=== PATIENT | male | born 1960 | race Two or more races ===

== ENCOUNTER → 2017-04-07 | Outpatient (CLI) | payer OTHER, MEDICAID | END | disposition home or self-care (01) | LOC: Rad HDHVI 09:50 | PROVIDERS: ATTEND Internal Medicine Cardiovascular Disease | DX: I73.9 Peripheral vascular disease, unspecified (principal) | CPT/HCPCS: 93926 ==

== ENCOUNTER → 2017-04-20 | Outpatient (CLI) | payer OTHER, MEDICAID ==
[~2017-04-20] VITALS: Ht 167.6 cm; Wt 83.0 kg
[~2017-04-20] MED LIST: ADENOSINE 70 MG in GIVE UN-DILUTED 0 ML IV ONE; ADENOSINE 90 MG/30 ML INJ IV ONE
== END | disposition home or self-care (01) ==
LOC: Rad HDHVI 08:25
PROVIDERS: ATTEND Internal Medicine Cardiovascular Disease
DX: I10 Essential (primary) hypertension (principal); E78.00 Pure hypercholesterolemia, unspecified; R06.02 Shortness of breath; Z95.1 Presence of aortocoronary bypass graft
CPT/HCPCS: 78452; 93005; 96374; 96375; A9500; J0153

== ENCOUNTER → 2017-05-19 | Outpatient (CLI) | payer OTHER, MEDICAID | END | disposition home or self-care (01) | LOC: Rad HDHVI 08:20 | PROVIDERS: ATTEND Internal Medicine Cardiovascular Disease | DX: Z13.6 Encounter for screening for cardiovascular disorders (principal) | CPT/HCPCS: 76770 ==

== ENCOUNTER → 2018-11-11 | Outpatient (CLI) | payer OTHER, MEDICAID | END | disposition home or self-care (01) | LOC: Rad HDHVI 12:52 | PROVIDERS: ATTEND Internal Medicine | DX: I25.10 Atherosclerotic heart disease of native coronary artery without angina pectoris (principal); E78.5 Hyperlipidemia, unspecified; I11.9 Hypertensive heart disease without heart failure | CPT/HCPCS: 93306 ==

== ENCOUNTER → 2019-09-13 | Outpatient (CLI) | payer OTHER, MEDICAID ==
[~2019-09-13] VITALS: Ht 167.6 cm; Wt 77.1 kg
[~2019-09-13] MED LIST changes: +ADENOSINE 65 MG in GIVE UN-DILUTED 0 ML IV ONE; -ADENOSINE 70 MG in GIVE UN-DILUTED 0 ML IV ONE
== END | disposition home or self-care (01) ==
LOC: Rad HDHVI 09:05
PROVIDERS: ATTEND Internal Medicine
DX: I10 Essential (primary) hypertension (principal); I25.118 Atherosclerotic heart disease of native coronary artery with other forms of angina pectoris; I25.2 Old myocardial infarction; E78.00 Pure hypercholesterolemia, unspecified; E11.9 Type 2 diabetes mellitus without complications; R07.89 Other chest pain; R42 Dizziness and giddiness; Z95.1 Presence of aortocoronary bypass graft
CPT/HCPCS: 78452; 93005; 96374; 96375; A9500; J0153

== ENCOUNTER 2019-10-11 10:23 | Inpatient (IN) | payer OTHER, MEDICAID ==
[~2019-10-11] VITALS: Ht 167.6 cm; Wt 77.4 kg
[2019-10-11 11:23] VITALS: BP 134/77
--- NOTE | 2019-10-11 11:44 | NUR ---
Direct Admit MCGILLMIRIAN MALAGON admitted to Telemetry unit as a direct admit per MD order. Patient oriented to MARY MOSES RN primary RN, unit, room, bed, and unit policies regarding patient care and visiting hours. Patient now on continuous telemetry monitoring. Patient placed on bedside oxygen, weighed by bedscale and encouraged to call if they need something. All questions and concerns addressed, patient verbalized understanding. Will continue care. MD notified of patients arrival and admit orders received. New orders read back to MD.
[2019-10-11] MEDS: SOD CHL 0.45% 1,000 ML IV SCH ×2 (12:15→22:20)
[2019-10-11] MEDS ORDERED: DEXTROSE (50%) 50ML SYRG IV PRN (12:15)
[2019-10-11 13:00] VITALS: BP 134/77
[2019-10-11 13:22] LABS: Basophils # (auto) 0.1 10 ^3/uL (0-0.2); Basophils % (auto) 0.8 % (0.0-2.0); Eosinophils # (auto) 0.5 10 ^3/uL (0-0.8); Eosinophils % (auto) 5.9 % (0.0-7.0); Hemoglobin 11.8 g/dL (13.5-17.5); Lymphocytes # (auto) 3.7 10 ^3/uL (0.4-5.4); Mean Corpuscular Hemoglobin 32.7 pg (28.0-32.0); Mean Corpuscular Hgb Conc. 34.7 g/dL (32.0-36.0); Mean Corpuscular Volume 94.1 fL (80.0-100.0); Monocytes # (auto) 0.6 10 ^3/uL (0-1.3); Monocytes % (auto) 7.5 % (0.0-12.0); Neutrophils # (auto) 3.5 10 ^3/uL (1.6-8.6); Neutrophils % (auto) 41.8 % (37.0-80.0); Nucleated Red Blood Cells % 0.1 %; Platelet Count (auto) 193 10^3/uL (140-450); Red Blood Cells 3.62 10^6/uL (4.5-5.90); Red Cell Distribution Width 13.2 % (11.8-14.3); White Blood Cell 8.4 10^3/uL (4.4-10.8)
[2019-10-11 13:40] LABS: Albumin 3.6 g/dL (3.4-5.0); Calcium 8.9 mg/dL (8.5-10.1); Potassium 3.6 mmol/L (3.5-5.1)
[2019-10-11 13:44] LABS: BUN/Creatinine Ratio 20.6; Bilirubin, Total 0.3 mg/dL (0.2-1.0); Total Protein 7.5 g/dL (6.4-8.2)
[2019-10-11] MEDS ORDERED: TOPI50TA53 PO (14:17)
[2019-10-11] MEDS ORDERED: RANO1000 PO (14:17)
[2019-10-11] MEDS ORDERED: INSLANTI SC (14:35)
[2019-10-11] MEDS ORDERED: COLC1CAP PO (14:35)
[2019-10-11] MEDS ORDERED: ISO20T PO (14:35)
[2019-10-11] MEDS ORDERED: FURO40TA4 PO (14:35)
[2019-10-11] MEDS ORDERED: ALBUAER3 IN (14:35)
[2019-10-11] MEDS ORDERED: FERR1TAB17 PO (14:35)
[2019-10-11] MEDS ORDERED: CHOL20007 OR (14:35)
[2019-10-11] MEDS ORDERED: ASPI-498 OR (14:35)
[2019-10-11] MEDS ORDERED: BRIM0.159 OP (14:35)
[2019-10-11] MEDS ORDERED: FEBU40TA PO (14:35)
[2019-10-11] MEDS ORDERED: PANT1INJ3 PO (14:35)
[2019-10-11] MEDS ORDERED: HYDR50TA15 PO (14:35)
[2019-10-11] MEDS ORDERED: CAR3125T OR (14:35)
[2019-10-11] MEDS ORDERED: GABA-339 PO (14:35)
[2019-10-11] MEDS ORDERED: INSU1INJ15 SC (14:35)
[2019-10-11] MEDS ORDERED: DORZ2SOL18 EACHEYE (14:35)
[2019-10-11] MEDS ORDERED: GEMF600T PO (14:35)
[2019-10-11] MEDS ORDERED: SEMA2INJ SC (14:35)
[2019-10-11] MEDS ORDERED: LATA0.0019 OP (14:35)
[2019-10-11] MEDS ORDERED: ATOR1TAB PO (14:35)
[2019-10-11 16:34] VITALS: BP 171/87
[2019-10-11] MEDS: InsuLIN REG 1unit/0.01ml Soln (100units/ml) SC SCH ×2 (16:53→21:33)
[2019-10-11] MEDS: ACCU-CHEK COMFORT CURVE STRIP VI SCH ×2 (16:53→21:34)
[2019-10-11] MEDS ORDERED: MORPHINE SULFATE 4 MG/ML SYR/VIAL IV PRN (17:00)
[2019-10-11] MEDS ORDERED: ACETAMINOPHEN 325 MG TAB PO PRN (17:00)
[2019-10-11] MEDS: hydrALAZINE HCL 20 MG/ML VL IV PRN (17:58)
--- NOTE | 2019-10-11 18:00 | NUR ---
MRSA SWAB COLLECTED AND SENT TO LAB.
--- NOTE | 2019-10-11 18:51 | NUR ---
CLOSING SHIFT NOTE Patient currently in bed no s/s of distress noted. Patient denies any pain. Bed in low position, locked, side rails x2 up, call light within reach. Will endorse care to NOC JOVANY Osborne.
[2019-10-11 19:00] VITALS: BP 130/77
[2019-10-11 19:47] LABS: Magnesium 1.9 mg/dL (1.6-2.6)
[2019-10-11] MEDS ORDERED: PERCOT PO ×2 (21:17→21:19)
[2019-10-11] MEDS: TOPIRAMATE 25 MG TAB PO SCH (21:32)
[2019-10-11] MEDS: INSULIN LANTUS (GLARGINE) 1 /0.01ml (100units/ml) SC SCH (21:33)
[2019-10-11] MEDS: GABAPENTIN 300 MG CAP PO SCH (21:33)
[2019-10-11] MEDS: RANOLAZINE ER 500 MG TAB PO SCH (21:33)
[2019-10-11 22:00] VITALS: BP 168/82
[2019-10-11] MEDS ORDERED: METOPROLOL SUCCINATE XL 50 MG TAB PO SCH (22:00)
--- NOTE | 2019-10-11 22:00 | NUR ---
Paged hospitalist to notify of patient requesting Percocet 10-325 mg 1 tab 3x a day as prescribed at home by pain managment doctor Cullen Young from [facility]. [phone] phone number to [facility]. Awaiting call back from hospitalist.
[2019-10-11] MEDS ORDERED: OXYCODONE W/ ACETAMINOPHEN 5/325MG TABLET PO ONE (22:30)
--- NOTE | 2019-10-11 22:30 | NUR ---
received order for percocet 5-325 two tabs po one time dose now. Will carry out.
[2019-10-12] MEDS: hydrALAZINE HCL 20 MG/ML VL IV PRN (04:46)
[2019-10-12] MEDS: GABAPENTIN 300 MG CAP PO SCH (04:57)
[2019-10-12 05:00] VITALS: BP 163/76
[2019-10-12 06:04] LABS: Basophils # (auto) 0.1 10 ^3/uL (0-0.2); Basophils % (auto) 0.9 % (0.0-2.0); Eosinophils # (auto) 0.5 10 ^3/uL (0-0.8); Eosinophils % (auto) 5.1 % (0.0-7.0); Hematocrit 35.7 % (41.0-53.0); Hemoglobin 12.5 g/dL (13.5-17.5); Lymphocytes # (auto) 3.7 10 ^3/uL (0.4-5.4); Mean Corpuscular Hemoglobin 32.9 pg (28.0-32.0); Mean Corpuscular Hgb Conc. 35.1 g/dL (32.0-36.0); Mean Corpuscular Volume 93.7 fL (80.0-100.0); Monocytes # (auto) 0.7 10 ^3/uL (0-1.3); Neutrophils # (auto) 4.5 10 ^3/uL (1.6-8.6); Platelet Count (auto) 183 10^3/uL (140-450); Red Blood Cells 3.81 10^6/uL (4.5-5.90); Red Cell Distribution Width 13.4 % (11.8-14.3); White Blood Cell 9.4 10^3/uL (4.4-10.8)
[2019-10-12 06:14] LABS: INR 1.12 (0.9-1.15); Partial Thromboplastin Time 27.1 sec (23.64-32.05)
[2019-10-12 06:21] LABS: Potassium 3.5 mmol/L (3.5-5.1)
[2019-10-12 06:26] LABS: BUN/Creatinine Ratio 21.7; Calcium 8.6 mg/dL (8.5-10.1)
[2019-10-12] MEDS: InsuLIN REG 1unit/0.01ml Soln (100units/ml) SC SCH ×4 (06:32→22:03)
[2019-10-12] MEDS: ACCU-CHEK COMFORT CURVE STRIP VI SCH ×4 (06:32→21:27)
[2019-10-12 06:48] VITALS: BP 116/74
[2019-10-12] MEDS ORDERED: INSULIN LANTUS (GLARGINE) 1 /0.01ml (100units/ml) SC SCH (07:00)
[2019-10-12 07:40] LABS: Urine Bacteria NONE SEEN /hpf (None Seen); Urine Blood Negative /uL (Negative); Urine Specific Gravity 1.009 (1.001-1.035); Urine WBC 6 /hpf (0 - 3)
[2019-10-12] MEDS: SOD CHL 0.45% 1,000 ML IV SCH ×3 (08:15→17:37)
[2019-10-12 09:00] VITALS: BP 116/74
--- NOTE | 2019-10-12 09:25 | NUR ---
End of shift note Patient in bed currently having dinner brought in by family members. No s/s of distress/SOB noted or reported. Family members at bedside. Will endorse care to LEIGH Lyles. Addendum: 10/12/19 at 1953 by MARY MOSES RN RN incorrect time time of note 1924
[2019-10-12] MEDS ORDERED: IOHEXOL 350 MG/ML 100ML IJ ONE ×2 (09:29→09:31)
--- NOTE | 2019-10-12 09:50 | NUR ---
OFF UNIT PATIENT DOWN TO STUDENT SERVICES REPRESENTATIVE
[2019-10-12] MEDS: TOPIRAMATE 25 MG TAB PO SCH ×2 (10:00→22:02)
[2019-10-12] MEDS: ATORVASTATIN 20 MG TAB PO SCH (10:00)
[2019-10-12] MEDS: RANOLAZINE ER 500 MG TAB PO SCH ×2 (10:00→22:02)
[2019-10-12] MEDS: CARVEDILOL 3.125 MG TAB PO SCH (10:00)
[2019-10-12] MEDS: ASPirin 81 mg TAB PO SCH (10:00)
[2019-10-12] MEDS ORDERED: ANGIOMAX 250 MG VIAL IV ONE (10:28)
[2019-10-12] MEDS ORDERED: methylPREDNISolone SOD SUCC 125 MG/2 ML VL ONE (10:28)
[2019-10-12] MEDS ORDERED: diphenhdrAMINE HCL 50 MG/1 ML VL ONE (10:28)
[2019-10-12] MEDS ORDERED: MIDAZOLAM HCL 1MG/1ML-2 ML VIAL ONE (10:29)
[2019-10-12] MEDS ORDERED: SODIUM CHL 0.9% 50 ML ONE (10:29)
[2019-10-12] MEDS ORDERED: LIDOCAINE 2%HCL (LOCAL ANESTH.) INJ 20ML MDV ONE (10:29)
[2019-10-12] MEDS ORDERED: fentaNYL CITRATE 100 MCG/2 ML VL ONE (10:29)
[2019-10-12] MEDS ORDERED: IODIXANOL 320MG/ML 100ML BTL IV ONE ×2 (10:29→11:09)
[2019-10-12] MEDS ORDERED: hydrALAZINE HCL 20 MG/ML VL ONE (10:56)
[2019-10-12] MEDS ORDERED: CLOPIDOGREL 300 MG TAB ONE (11:10)
[2019-10-12] MEDS ORDERED: ASPirin 81 mg TAB ONE (11:28)
[2019-10-12] MEDS ORDERED: SODIUM CHLORIDE 0.9% 1,000 ML IV SCH (12:21)
--- NOTE | 2019-10-12 12:55 | NUR ---
S/P left heart cath Patient back on unit from microbiology lab technician. Patient currently in bed AOx4 laying flat. No S/S of distress noted. Right groin incision assessed and drainage from dressing marked. Education given to patient on maintaining flat position until notified otherwise, patient verbalized understanding. Will continue to monitor incision site. VS: T 97.7 B/P 137/68 HR 63 O2% 95
--- NOTE | 2019-10-12 13:05 | NUR ---
RE: s/p left heart cath Right groin incision assessed. Increase in circled bloody drainage noted, no signs of active bleeding or hematoma at the moment. Will continue to monitor.
[2019-10-12] MEDS: GABAPENTIN 400 MG CAP PO SCH ×2 (15:05→22:01)
--- NOTE | 2019-10-12 16:15 | NUR ---
paged Dr. Watson paged regarding patient requesting pain medication for chronic pancreatitis pain in right sternal border pain 03/19. New order for Percocet received, see EMAR for order details. Will carry out orders.
[2019-10-12 17:00] VITALS: BP 154/80
[2019-10-12] MEDS: OXYCODONE W/ ACETAMINOPHEN 5/325MG TABLET PO PRN (17:36)
--- NOTE | 2019-10-12 19:25 | NUR ---
End of shift note Patient in bed currently having dinner brought in by family members. No s/s of distress/SOB noted or reported. Family members at bedside. Will endorse care to NOC nurse Lyles.
--- NOTE | 2019-10-12 19:30 | NUR ---
Opening Shift Note Assumed care of patient, awake and alert. No S/S of distress/SOB or pain. Family at bedside. Instructed on POC and to call for assist PRN, will continue to monitor for changes Q1hr and PRN.
[2019-10-12 21:55] VITALS: BP 147/77
[2019-10-12] MEDS: INSULIN LANTUS (GLARGINE) 1 /0.01ml (100units/ml) SC SCH (22:02)
[2019-10-13] MEDS: SOD CHL 0.45% 1,000 ML IV SCH (04:22)
[2019-10-13] MEDS: OXYCODONE W/ ACETAMINOPHEN 5/325MG TABLET PO PRN (04:44)
[2019-10-13 05:26] VITALS: BP 152/70
[2019-10-13] MEDS: ACCU-CHEK COMFORT CURVE STRIP VI SCH ×2 (06:16→12:06)
[2019-10-13] MEDS: InsuLIN REG 1unit/0.01ml Soln (100units/ml) SC SCH ×2 (06:16→12:06)
[2019-10-13] MEDS: GABAPENTIN 400 MG CAP PO SCH (06:16)
--- NOTE | 2019-10-13 08:00 | NUR ---
OPENING SHIFT NOTE ASSUMED CARE OF PATIENT AWAKE AND ALERT. NO S/S OF DISTRESS NOTED OR COMPLAINTS OF PAIN. PATIENT UPDATED ON POC FOR THE DAY AND ALL QUESTIONS ANSWERED. BED IS IN LOWEST, LOCKED POSITION WITH SIDE RAILS UP X2 AND CALL LIGHT WITHIN REACH. WILL CONTINUE TO MONITOR Q1H AND PRN.
[2019-10-13] MEDS: CARVEDILOL 3.125 MG TAB PO SCH ×2 (08:43→10:09)
[2019-10-13 08:50] VITALS: BP 159/77
[2019-10-13] MEDS: ASPirin 81 mg TAB PO SCH (10:09)
[2019-10-13] MEDS: ATORVASTATIN 20 MG TAB PO SCH (10:09)
[2019-10-13] MEDS: TOPIRAMATE 25 MG TAB PO SCH (10:09)
[2019-10-13] MEDS: RANOLAZINE ER 500 MG TAB PO SCH (10:10)
--- NOTE | 2019-10-13 14:00 | NUR ---
Discharge instructions given as ordered. Encourage to follow up with PMD as instructed. All questions and concerns addressed. Patient verbalized understanding. Both IVs removed with catheter intact, pressure dressing applied. Telemetry unit returned to ICU. Patient taken to vehicle via wheelchair with all personal belongings, accompanied by staff and family member. No distress noted at time of departure.
== END 2019-10-13 14:00 | disposition home or self-care (01) | DRG 247 ==
LOC: TELE-CENTR 11:08
PROVIDERS: ADMIT Internal Medicine; ATTEND Internal Medicine
PROC: 027034Z Dilation of Coronary Artery, One Artery with Drug-eluting Intraluminal Device, Percutaneous Approach (ICD-10-PCS; principal; 2019-10-12)
PROC: 4A023N7 Measurement of Cardiac Sampling and Pressure, Left Heart, Percutaneous Approach (ICD-10-PCS; 2019-10-12)
PROC: B211YZZ Fluoroscopy of Multiple Coronary Arteries using Other Contrast (ICD-10-PCS; 2019-10-12)
PROC: B215YZZ Fluoroscopy of Left Heart using Other Contrast (ICD-10-PCS; 2019-10-12)
PROC: B213YZZ Fluoroscopy of Multiple Coronary Artery Bypass Grafts using Other Contrast (ICD-10-PCS; 2019-10-12)
PROC: B218YZZ Fluoroscopy of Left Internal Mammary Bypass Graft using Other Contrast (ICD-10-PCS; 2019-10-12)
DX: I25.10 Atherosclerotic heart disease of native coronary artery without angina pectoris (principal); I50.30 Unspecified diastolic (congestive) heart failure; I13.0 Hypertensive heart and chronic kidney disease with heart failure and stage 1 through stage 4 chronic kidney disease, or unspecified chronic kidney disease; K86.1 Other chronic pancreatitis; E86.0 Dehydration; N18.3 Chronic kidney disease, stage 3 (moderate); E78.5 Hyperlipidemia, unspecified; E11.22 Type 2 diabetes mellitus with diabetic chronic kidney disease; Z79.02 Long term (current) use of antithrombotics/antiplatelets; Z79.4 Long term (current) use of insulin; Z83.3 Family history of diabetes mellitus; Z95.1 Presence of aortocoronary bypass graft; Z95.5 Presence of coronary angioplasty implant and graft
CPT/HCPCS: 36415; 71045; 80048; 80053; 81001; 82962; 83735; 83880; 84443; 84484; 85025; 85610; 85730; 86850; 86900; 86901; 87081; 92937; 93459; 99152; 99153; C1874; C1887; G0378; J1815; J2250; Q9967

== ENCOUNTER → 2020-10-12 | Outpatient (CLI) | payer OTHER, MEDICAID ==
[~2020-10-12] MED LIST changes: -ADENOSINE 65 MG in GIVE UN-DILUTED 0 ML IV ONE; -ADENOSINE 90 MG/30 ML INJ IV ONE; +ALBUAER3 IN; +ASPI-498 OR; +ATOR-47 PO; +BRIM0.159 OP; +CAR3125T OR; +CHOL20007 OR; +COLC1CAP PO; +DORZ2SOL18 EACHEYE; +FEBU40TA PO; +FERR1TAB17 PO; +FURO40TA4 PO; +GABA-339 PO; +GEMF600T PO; +HYDR50TA15 PO; +INSLANTI SC; +INSU1INJ15 SC; +ISO20T PO; +LATA0.0019 OP; +PANT1INJ3 PO; +PERCOT PO; +RANO1000 PO; +SEMA2INJ SC; +TOPI50TA53 PO
== END | disposition home or self-care (01) ==
LOC: Rad HDHVI 15:04
PROVIDERS: ATTEND Internal Medicine
DX: I37.1 Nonrheumatic pulmonary valve insufficiency (principal); I25.10 Atherosclerotic heart disease of native coronary artery without angina pectoris; R07.9 Chest pain, unspecified
CPT/HCPCS: 93306

== ENCOUNTER → 2020-10-22 | Outpatient (CLI) | payer OTHER, MEDICAID ==
[~2020-10-22] VITALS: Ht 167.6 cm; Wt 72.6 kg
[~2020-10-22] MED LIST changes: +ADENOSINE 61 MG in GIVE UN-DILUTED 0 ML IV ONE; +ADENOSINE 90 MG/30 ML INJ IV ONE
== END | disposition home or self-care (01) ==
LOC: Rad HDHVI 09:40
PROVIDERS: ATTEND Internal Medicine Cardiovascular Disease
DX: I10 Essential (primary) hypertension (principal); E78.00 Pure hypercholesterolemia, unspecified; I25.2 Old myocardial infarction; E11.9 Type 2 diabetes mellitus without complications; R07.89 Other chest pain; Z95.1 Presence of aortocoronary bypass graft; Z82.49 Family history of ischemic heart disease and other diseases of the circulatory system
CPT/HCPCS: 78452; 93005; 96374; 96375; A9500; J0153

== ENCOUNTER 2021-11-01 15:40 | Inpatient (IN) | payer OTHER, MEDICAID ==
[~2021-11-01] VITALS: Ht 167.6 cm; Wt 60.1 kg
[~2021-11-01 15:40] MED LIST changes: -ADENOSINE 61 MG in GIVE UN-DILUTED 0 ML IV ONE; -ADENOSINE 90 MG/30 ML INJ IV ONE; -CAR3125T OR; -GEMF600T PO; +LEVE500T32 PO; -SEMA2INJ SC
[2021-11-01 16:16] LABS: Basophils # (auto) 0.1 10 ^3/uL (0-0.2); Basophils % (auto) 0.8 % (0.0-2.0); Eosinophils # (auto) 0.4 10 ^3/uL (0-0.8); Eosinophils % (auto) 3.6 % (0.0-7.0); Hemoglobin 10.5 g/dL (13.5-17.5); Lymphocytes # (auto) 3.2 10 ^3/uL (0.4-5.4); Lymphocytes % (auto) 32.2 % (10.0-50.0); Mean Corpuscular Hgb Conc. 35.1 g/dL (32.0-36.0); Monocytes # (auto) 0.6 10 ^3/uL (0-1.3); Monocytes % (auto) 5.7 % (0.0-12.0); Neutrophils # (auto) 5.7 10 ^3/uL (1.6-8.6); Neutrophils % (auto) 57.7 % (37.0-80.0); Nucleated Red Blood Cells % 0.2 %; Red Blood Cells 3.09 10^6/uL (4.5-5.90); Red Cell Distribution Width 13.3 % (11.8-14.3); White Blood Cell 9.8 10^3/uL (4.4-10.8)
[2021-11-01 16:40] LABS: Albumin 3.2 g/dL (3.4-5.0); Anion Gap 8 (5-15); Calcium 9.1 mg/dL (8.5-10.1); Carbon Dioxide 18 mmol/L (21-32); Chloride 110 mmol/L (98-107); Glucose 162 mg/dL (74-106); Potassium 4.4 mmol/L (3.5-5.1); Sodium 136 mmol/L (136-145)
[2021-11-01 16:41] LABS: GFR African American 33 mL/min; GFR Non-African American 27 mL/min
[2021-11-01 16:57] LABS: Alanine Aminotransferase 44 U/L (16-61); Alkaline Phosphatase 67 U/L (45-117); Aspartate Aminotransferase 68 U/L (15-37); BUN/Creatinine Ratio 20.1; Bilirubin, Total 0.3 mg/dL (0.2-1.0); Blood Urea Nitrogen 52 mg/dL (7-18); Total Protein 7.5 g/dL (6.4-8.2)
[2021-11-01 17:19] LABS: INR 1.09 (0.9-1.15); Partial Thromboplastin Time 24.7 sec (23.6-33.0)
[2021-11-01] MEDS ORDERED: ONDANSETRON HCL 4 MG/2 ML VIAL IV ONE (20:00)
[2021-11-01] MEDS ORDERED: HYDROmorphone HCL 2 MG/ML VL IV ONE (20:00)
[2021-11-01] MEDS ORDERED: DOCUSATE SOD 100 MG CAP PO PRN (20:45)
[2021-11-01] MEDS ORDERED: ACETAMINOPHEN 325 MG TAB PO PRN (20:45)
[2021-11-01] MEDS ORDERED: ONDANSETRON HCL 4 MG/2 ML VIAL IV PRN (20:45)
[2021-11-01] MEDS ORDERED: FUROSEMIDE 20 MG/2 ML VIAL IV ONE (20:45)
[2021-11-01] MEDS ORDERED: DEXTROSE (50%) 50ML SYRG IV PRN (20:45)
[2021-11-01] MEDS: MORPHINE SULFATE 4 MG/ML SYR/VIAL IV PRN (21:45)
[2021-11-01] MEDS: HEPARIN SODIUM (PORCINE) 5000 UNITS/ML 1ML VIAL SC SCH (21:45)
[2021-11-01] MEDS ORDERED: NITROGLYCERIN 0.4 MG SL TAB SL PRN (21:45)
[2021-11-01] MEDS: FAMOTIDINE (10MG/ML) 2ML VL IV SCH (21:45)
[2021-11-01] MEDS ORDERED: MORPHINE SULFATE INJECTION 2 MG/ML SYRG IV PRN (21:45)
[2021-11-01] MEDS: SODIUM CHLORIDE 0.9% 1,000 ML IV SCH (21:46)
[2021-11-01] MEDS: ATORVASTATIN 20 MG TAB PO SCH (21:54)
[2021-11-01] MEDS ORDERED: InsuLIN REG 1unit/0.01ml Soln (100units/ml) SC SCH (22:00)
[2021-11-01] MEDS: ACCU-CHEK COMFORT CURVE STRIP VI SCH (22:00)
[2021-11-01 23:45] VITALS: BP 139/67
[2021-11-02 05:00] VITALS: BP 119/80
[2021-11-02 06:03] LABS: Urine WBC None Seen /hpf (0 - 3)
[2021-11-02 06:23] LABS: Basophils # (auto) 0 10 ^3/uL (0-0.2); Basophils % (auto) 0.4 % (0.0-2.0); Eosinophils # (auto) 0.3 10 ^3/uL (0-0.8); Eosinophils % (auto) 3.7 % (0.0-7.0); Hematocrit 31.1 % (41.0-53.0); Hemoglobin 10.7 g/dL (13.5-17.5); Lymphocytes # (auto) 2.9 10 ^3/uL (0.4-5.4); Lymphocytes % (auto) 37.2 % (10.0-50.0); Mean Corpuscular Hemoglobin 33.3 pg (28.0-32.0); Mean Corpuscular Hgb Conc. 34.2 g/dL (32.0-36.0); Mean Corpuscular Volume 97.3 fL (80.0-100.0); Monocytes # (auto) 0.5 10 ^3/uL (0-1.3); Monocytes % (auto) 6.7 % (0.0-12.0); Red Cell Distribution Width 13.6 % (11.8-14.3); White Blood Cell 7.7 10^3/uL (4.4-10.8)
[2021-11-02] MEDS: InsuLIN REG 1unit/0.01ml Soln (100units/ml) SC SCH ×3 (06:33→17:14)
[2021-11-02] MEDS: ACCU-CHEK COMFORT CURVE STRIP VI SCH ×3 (06:33→17:15)
[2021-11-02 06:34] LABS: Albumin 3.3 g/dL (3.4-5.0); Calcium 8.9 mg/dL (8.5-10.1); Potassium 3.6 mmol/L (3.5-5.1)
[2021-11-02 06:40] LABS: BUN/Creatinine Ratio 21.5; Bilirubin, Total 0.2 mg/dL (0.2-1.0); Total Protein 7.6 g/dL (6.4-8.2)
[2021-11-02 06:42] LABS: Urine Bacteria NONE SEEN /hpf (None Seen); Urine Blood TRACE /uL (Negative); Urine Hyaline Cast FEW /lpf (0 - 2)
[2021-11-02 08:00] VITALS: BP 133/62
[2021-11-02] MEDS: HYDROcodone-ACET 5/325MG TAB PO PRN ×2 (08:10→21:20)
[2021-11-02] MEDS: HEPARIN SODIUM (PORCINE) 5000 UNITS/ML 1ML VIAL SC SCH ×2 (09:36→21:25)
[2021-11-02] MEDS: ASPirin 81 mg TAB PO SCH (09:37)
[2021-11-02] MEDS: FAMOTIDINE (10MG/ML) 2ML VL IV SCH (09:37)
[2021-11-02] MEDS ORDERED: FUROSEMIDE 20 MG/2 ML VIAL IV SCH (10:00)
[2021-11-02 12:00] VITALS: BP 146/68
[2021-11-02] MEDS: SODIUM CHLORIDE 0.9% 1,000 ML IV SCH (12:12)
[2021-11-02] MEDS ORDERED: DEXTROSE (50%) 50ML SYRG IV PRN (14:15)
[2021-11-02 14:57] LABS: Amphetamine Screen, Urine NEGATIVE (NEGATIVE); Barbiturate Scree,Urine NEGATIVE (NEGATIVE); Benzodiazephine Screen, Urine NEGATIVE (NEGATIVE); Cannabinoid Screen, Urine NEGATIVE (NEGATIVE); Cocaine Screen, Urine NEGATIVE (NEGATIVE); Opiate Scree,Urine NEGATIVE (NEGATIVE); Phencyclidine Screen, Urine NEGATIVE (NEGATIVE)
[2021-11-02] MEDS: MORPHINE SULFATE 4 MG/ML SYR/VIAL IV PRN (15:50)
[2021-11-02 16:00] VITALS: BP 169/67
[2021-11-02 17:33] VITALS: BP 133/83
[2021-11-02] MEDS: ATORVASTATIN 20 MG TAB PO SCH (21:23)
[2021-11-02 22:00] VITALS: BP 152/80
[2021-11-03] MEDS: InsuLIN REG 1unit/0.01ml Soln (100units/ml) SC SCH ×4 (00:47→18:04)
[2021-11-03 05:00] VITALS: BP 120/71
[2021-11-03] MEDS: ACCU-CHEK COMFORT CURVE STRIP VI SCH ×4 (06:15→17:54)
[2021-11-03] MEDS: SODIUM CHLORIDE 0.9% 1,000 ML IV SCH ×2 (06:15→22:25)
[2021-11-03 06:38] LABS: Basophils # (auto) 0 10 ^3/uL (0-0.2); Basophils % (auto) 0.5 % (0.0-2.0); Eosinophils # (auto) 0.4 10 ^3/uL (0-0.8); Eosinophils % (auto) 4.8 % (0.0-7.0); Hematocrit 29.4 % (41.0-53.0); Hemoglobin 10.4 g/dL (13.5-17.5); Lymphocytes % (auto) 33.8 % (10.0-50.0); Mean Corpuscular Hemoglobin 33.5 pg (28.0-32.0); Mean Corpuscular Hgb Conc. 35.3 g/dL (32.0-36.0); Monocytes # (auto) 0.6 10 ^3/uL (0-1.3); Neutrophils # (auto) 4.7 10 ^3/uL (1.6-8.6); Neutrophils % (auto) 53.9 % (37.0-80.0); Red Blood Cells 3.09 10^6/uL (4.5-5.90); Red Cell Distribution Width 13.4 % (11.8-14.3); White Blood Cell 8.7 10^3/uL (4.4-10.8)
[2021-11-03 06:58] LABS: Potassium 3.6 mmol/L (3.5-5.1)
[2021-11-03 07:08] LABS: Albumin 2.9 g/dL (3.4-5.0); BUN/Creatinine Ratio 24.5; Bilirubin, Total 0.3 mg/dL (0.2-1.0); Calcium 8.8 mg/dL (8.5-10.1)
[2021-11-03 08:00] VITALS: BP 163/80
[2021-11-03] MEDS: FAMOTIDINE (10MG/ML) 2ML VL IV SCH (09:30)
[2021-11-03] MEDS: HEPARIN SODIUM (PORCINE) 5000 UNITS/ML 1ML VIAL SC SCH ×2 (09:30→22:24)
[2021-11-03] MEDS: ASPirin 81 mg TAB PO SCH (09:30)
[2021-11-03] MEDS: HYDROcodone-ACET 5/325MG TAB PO PRN (09:31)
[2021-11-03 13:00] VITALS: BP 160/74
[2021-11-03] MEDS: hydrALAZINE HCL 25 MG TAB PO SCH ×2 (16:00→22:24)
[2021-11-03 17:00] VITALS: BP 136/55
[2021-11-03 17:33] VITALS: BP 160/72
[2021-11-03] MEDS: MORPHINE SULFATE 4 MG/ML SYR/VIAL IV PRN (19:44)
[2021-11-03 22:00] VITALS: BP 157/78
[2021-11-03] MEDS: ATORVASTATIN 20 MG TAB PO SCH (22:24)
[2021-11-04] MEDS: ACCU-CHEK COMFORT CURVE STRIP VI SCH ×5 (00:21→23:10)
[2021-11-04] MEDS: InsuLIN REG 1unit/0.01ml Soln (100units/ml) SC SCH ×5 (00:22→23:10)
[2021-11-04 05:00] VITALS: BP 157/80
[2021-11-04 05:44] LABS: BUN/Creatinine Ratio 28.7; Calcium 9.4 mg/dL (8.5-10.1); Potassium 3.5 mmol/L (3.5-5.1)
[2021-11-04] MEDS: hydrALAZINE HCL 25 MG TAB PO SCH ×2 (06:06→21:14)
[2021-11-04 08:33] VITALS: BP 156/83
[2021-11-04] MEDS: HEPARIN SODIUM (PORCINE) 5000 UNITS/ML 1ML VIAL SC SCH ×2 (09:04→21:10)
[2021-11-04] MEDS: ASPirin 81 mg TAB PO SCH (09:04)
[2021-11-04] MEDS: FAMOTIDINE (10MG/ML) 2ML VL IV SCH (09:04)
[2021-11-04] MEDS ORDERED: LACTULOSE 20Gm/30ML SOLN PO ONE (12:45)
[2021-11-04 13:00] VITALS: BP 142/86
[2021-11-04] MEDS ORDERED: ALBUTEROL SULF 2.5 MG/0.5ML(0.5%) NEB SOLN NEB PRN (13:30)
[2021-11-04] MEDS ORDERED: LACTULOSE 20Gm/30ML SOLN PO PRN (13:30)
[2021-11-04] MEDS ORDERED: DOCU-94 PO (13:34)
[2021-11-04] MEDS ORDERED: ATOR10TA PO (13:39)
[2021-11-04 16:57] VITALS: BP 152/82
[2021-11-04] MEDS: DOCUSATE SOD 100 MG CAP PO SCH (21:12)
[2021-11-04] MEDS: TOPIRAMATE 25 MG TAB PO SCH (21:13)
[2021-11-04] MEDS ORDERED: ATORVASTATIN 20 MG TAB PO SCH (22:00)
[2021-11-04] MEDS ORDERED: hydrALAZINE HCL 20 MG/ML VL IV ONE (22:30)
[2021-11-04 22:48] VITALS: BP 178/78
[2021-11-05 00:48] VITALS: BP 131/55
[2021-11-05 05:22] VITALS: BP 120/47
[2021-11-05] MEDS: InsuLIN REG 1unit/0.01ml Soln (100units/ml) SC SCH ×3 (06:00→18:00)
[2021-11-05] MEDS: ACCU-CHEK COMFORT CURVE STRIP VI SCH ×3 (06:00→18:15)
[2021-11-05 08:41] VITALS: BP 134/62
[2021-11-05] MEDS: ASPirin 81 mg TAB PO SCH (09:46)
[2021-11-05] MEDS: hydrALAZINE HCL 25 MG TAB PO SCH (09:47)
[2021-11-05] MEDS: TOPIRAMATE 25 MG TAB PO SCH (09:49)
[2021-11-05] MEDS: DOCUSATE SOD 100 MG CAP PO SCH (09:51)
[2021-11-05] MEDS: HEPARIN SODIUM (PORCINE) 5000 UNITS/ML 1ML VIAL SC SCH (09:52)
[2021-11-05] MEDS ORDERED: PANTOPRAZOLE 40 MG TAB PO SCH (10:00)
[2021-11-05] MEDS ORDERED: ISOSORBIDE MONONITRATE ER 60 MG TAB PO SCH (10:00)
[2021-11-05 12:43] VITALS: BP 117/72
[2021-11-05 14:09] VITALS: BP 134/62
[2021-11-05] MEDS: HYDROcodone-ACET 5/325MG TAB PO PRN (15:21)
[2021-11-05 16:47] VITALS: BP 127/62
== END 2021-11-05 19:20 | DRG 562 ==
LOC: EDBD 15:40 → EDUNIT# 15:40 → ER 15:44 → TELE-WESTW 21:41
PROVIDERS: ADMIT Nurse Practitioner Family; ATTEND Internal Medicine
DX: S42.211A Unspecified displaced fracture of surgical neck of right humerus, initial encounter for closed fracture (principal); I21.A1 Myocardial infarction type 2; N17.0 Acute kidney failure with tubular necrosis; I13.0 Hypertensive heart and chronic kidney disease with heart failure and stage 1 through stage 4 chronic kidney disease, or unspecified chronic kidney disease; I50.42 Chronic combined systolic (congestive) and diastolic (congestive) heart failure; K86.1 Other chronic pancreatitis; E11.65 Type 2 diabetes mellitus with hyperglycemia; E78.5 Hyperlipidemia, unspecified; N18.32 Chronic kidney disease, stage 3b; E11.22 Type 2 diabetes mellitus with diabetic chronic kidney disease; I25.10 Atherosclerotic heart disease of native coronary artery without angina pectoris; I48.91 Unspecified atrial fibrillation; G89.29 Other chronic pain; Z20.822 Contact with and (suspected) exposure to COVID-19; W10.1XXA Fall (on)(from) sidewalk curb, initial encounter; I49.3 Ventricular premature depolarization; K59.00 Constipation, unspecified; Z75.1 Person awaiting admission to adequate facility elsewhere; Z82.49 Family history of ischemic heart disease and other diseases of the circulatory system; Z83.3 Family history of diabetes mellitus; I25.2 Old myocardial infarction; Z86.73 Personal history of transient ischemic attack (TIA), and cerebral infarction without residual deficits; Z95.1 Presence of aortocoronary bypass graft; Z95.5 Presence of coronary angioplasty implant and graft; Z91.041 Radiographic dye allergy status; Y93.89 Activity, other specified; Y92.098 Other place in other non-institutional residence as the place of occurrence of the external cause; Y99.8 Other external cause status
CPT/HCPCS: 36415; 71045; 80048; 80053; 80061; 80307; 81001; 82962; 83036; 83735; 83880; 84484; 85025; 85610; 85730; 93005; 93306; 96372; 96374; 96375; 97110; 97116; 97163; G0378; J1815; J2405; J3490

== ENCOUNTER 2025-03-17 07:53 | Inpatient (IN) | payer OTHER, MEDICAID ==
[2025-03-17] VITALS (45 sets, daily range): BP systolic 86–148; BP diastolic 25–84; PULSE 52–88; RESP 7–24; TEMP 97.8–99.3; O2SAT 90–100
[~2025-03-17] VITALS: Ht 165.1 cm; Wt 95.1 kg
[~2025-03-17 07:53] MED LIST changes: -ATOR-47 PO; +ATOR10TA PO; +DOCU-94 PO; -HYDR50TA15 PO; +HYDR50TA47 PO; -INSLANTI SC; -LATA0.0019 OP; +LATA0.008 OP; -LEVE500T32 PO; -PERCOT PO
[2025-03-17] MEDS ORDERED: SODIUM BICARB 50mEq/50ml Vial 50 ML in SOD CHL 0.45% 1,000 ML IV ONE ×2 (08:30→13:00)
--- NOTE | 2025-03-17 08:41 | ED.PDOC ---
CPR-HPI HPI Comments 64 year old male presents to the ED via EMS with a chief complaint of cardiac arrest onset today (03/17/25). Per EMS, patient was last seen well at 07:10 walking out his door, at 07:20 was found in his car, unresponsive. Upon EMS arrival, patient was asystole. CPR began, 4 rounds of epi was given prior to ED arrival, IO on RT tib fib was placed. Upon ED arrival, CPR continued, patient was intubated, rectal temperature was 97.8 F, BS was 249. Patient's daughter and were at bedside. There was ROSC at 08:04, patient was v-fib 08:06, 08:08 was shocked 120 joules, ROSC at 08:13. PMHz DM, CA, CABG. Chief Complaint: CPR Time Seen by MD: 07:51 Primary Care Provider: DI Reviewed Notes: Medications, Allergies Allergies: Coded Allergies: Iodinated Diagnostic Agents (Verified Allergy, Unknown, 01/11/21) Uncoded Allergies: ADHESIVE (Adverse Reaction, Unknown, 04/20/17) Home Meds Active Scripts Atorvastatin Calcium (Lipitor) 10 Mg Tab, 1 TAB PO DAILY, #30 TAB Prov:LEIGH KELLOGG MD 11/04/21 Docusate Sodium (Colace) 100 Mg Cap, 1 CAP PO BID PRN, #30 CAP Prov:LEIGH KELLOGG MD 11/04/21 Reported Medications Pantoprazole Sodium (PANTOPRAZOLE SODIUM) 40 Mg Inj, 40 MG PO DAILY, INJ 10/11/19 Latanoprost (LATANOPROST) 0.005 % Norah, 0.005 % OP DAILY, ML 10/11/19 Isosorbide Mononitrate (ISMO TABLET) 20 Mg Tb, 30 MG PO DAILY, TAB 10/11/19 Hydralazine Hcl (Hydralazine Hcl) 50 Mg Tab, 50 MG PO for 30 Days, MG 10/11/19 Insulin Regular (Human) (Humulin R U-500 Kwikpen) 500 Unit/Ml Inj, 500 UNIT SC TID, INJ 10/11/19 Gabapentin (Gabapentin) 600 Mg Tab, 600 MG PO TID for 30 Days, MG 10/11/19 Furosemide (Furosemide) 40 Mg Tab, 40 MG PO DAILY for 30 Days 10/11/19 Colchicine (Colchicine) 0.6 Mg Cap, 0.6 MG PO DAILY, CAP 10/11/19 Brimonidine Tartrate (Brimonidine Tartrate) 0.15 % Norah, 1 DROP OP TID, DROP 10/11/19 Aspirin (ASPIRIN 81) 81 Mg Tab, 81 MG OR DAILY, TAB 10/11/19 Ferric Citrate (Auryxia) 210 Mg Tab, 210 MG PO TIDWMEALS, TAB 10/11/19 Dorzolamide-Timolol (Dorzolamide Hcl/Timolol M) 1 Ml Norah, 1 DROP EACHEYE BID, #10 ML 3 Refills 10/11/19 Cholecalciferol (VITAMIN D3) 2,000 Unit Tab, OR, TAB 10/11/19 Febuxostat (Uloric) 40 Mg Tab, 1 TAB PO DAILY, #90 TAB 1 Refill 10/11/19 Albuterol Sulfate (VENTOLIN MDI) 90 Mcg Ih, 90 MCG IN BID for 30 Days, MCG 10/11/19 Topiramate (Topiramate) 50 Mg Tab, 50 MG PO BID for 30 Days, MG 10/11/19 Ranolazine (Ranexa) 1,000 Mg Tab, 1000 MG PO BID, TAB 10/11/19 Information Source: Relative (Child), Emergency Med Personnel, Spouse Mode of Arrival: EMS Timing: Minutes Duration: Total time prior hopital: (31 minutes) Available Hx: Other Inital rhythm: Asystole Treatment: CPR, Epinephrine (4 rounds) Past Medical History PAST MEDICAL HISTORY: DM, CA Surgical History: CABG Family History Family History: Unknown Social History Smoker: Non-Smoker Alcohol: Denies ETOH Use Drugs: Denies Drug Use Lives In: Home Unable to Obtain due to: Medical Urgency Physical Exam General Appearance: Severe Distress HEENT: Other (Pupils fixed and dilated) Neck: Normal Inspection Respiratory: Respiratory Distress, Other (Intubated) Cardiovascular: Other (No pulse) Breast Exam: Deferred Gastrointestinal: Soft Genitalia: Deferred Pelvic: Deferred Rectal: Deferred Extremities: No pedal edema Neurologic: Other (Unconscious) Cerebellar Function: NOT DONE Reflexes: NOT DONE Skin: Pallor Peripheral Pulses: 0 Radial (R), 0 Radial (L) Lymphatic: NOT DONE Was a procedure done? 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 Indication: Inability to obtain IV Room prepared for procedure: Yes Magisterial District Judge performed hand hygien: Yes Maximal sterile barrier precau: Mask/Eye shield, Sterile gown, Cap, Sterlie gloves, Large sterlie drape Skin Preparation: Chlorhexidine gluconate, Providine iodine, Alcohol Skin preparation completely dr: Yes Insertion site: Right, Femoral Central line catheter type: [id number] dialysis Number of lumens: 3 Central line exchanged over a: Yes Antiseptic ointment applied to: Yes Post Assessment: Chest X-Ray, Proper placement Informed consent obtained: Yes Risks/benefits/alt described: Yes Intubation Indication: Respiratory Insufficiency Intubation Approach: Orotracheal (8.0) Intubation size: cm (8.0) Differential Dx CPR Differential Diagnosis: Cardiopulmonary arrest, Electrolyte disorder X-Ray, Labs, Meds, VS Vital Signs Date Time Temp Pulse Resp B/P (MAP) Pulse Ox O2 Delivery O2 Flow Rate FiO2 03/17/25 13:38 62 03/17/25 12:20 61 21 142/48 (79) 100 50 03/17/25 12:00 96.6 62 19 156/55 (88) 100 96.6 03/17/25 11:40 62 19 155/54 (87) 100 03/17/25 11:20 62 19 155/63 (93) 100 03/17/25 11:06 Ambu-Bag 68 03/17/25 11:05 144/57 03/17/25 11:00 63 19 143/65 (91) 100 03/17/25 11:00 143/65 03/17/25 10:55 148/58 03/17/25 10:50 146/59 03/17/25 10:45 142/59 03/17/25 10:40 63 18 142/59 (86) 100 03/17/25 10:20 66 18 148/84 (105) 100 80 03/17/25 10:20 148/64 03/17/25 10:20 66 19 148/64 (92) 100 03/17/25 10:15 140/68 03/17/25 10:15 140/68 03/17/25 10:10 138/62 03/17/25 10:10 138/62 03/17/25 10:05 137/63 03/17/25 10:05 137/63 8/8/25 10:00 67 22 134/64 (87) 99 03/17/25 10:00 134/64 03/17/25 10:00 134/64 03/17/25 10:00 97.8 88 18 121/73 98 80 97.8 03/17/25 09:50 121/59 03/17/25 09:50 121/59 03/17/25 09:40 70 24 129/58 (81) 98 03/17/25 09:35 124/63 03/17/25 09:35 124/63 03/17/25 09:20 144/74 03/17/25 09:20 144/74 03/17/25 09:20 95.5 79 21 144/74 (97) 98 95.5 03/17/25 09:10 134/70 03/17/25 09:10 134/70 03/17/25 09:00 94 18 162/78 (106) 99 03/17/25 09:00 162/78 03/17/25 09:00 162/78 03/17/25 08:51 59/35 03/17/25 08:43 59/35 03/17/25 08:38 53 12 78/27 (44) 92 03/17/25 08:20 88 18 121/73 (89) 98 100 03/17/25 08:20 80 23 98 Mechanical Ventilator+ 80 80 03/17/25 08:19 88 03/17/25 08:11 97.8 132 128/80 (96) 97.8 03/17/25 07:53 97.8 0 0 0/0 0 97.8 Lab Test 03/17/25 13:45 03/17/25 12:13 03/17/25 10:55 03/17/25 09:15 Range/Units White Blood Count 11.2 #H 4.4-10.8 10^3/uL Red Blood Count 3.79 L 4.5-5.90 10^6/uL Hemoglobin 10.4 #L 13.5-17.5 g/dL Hematocrit 33.6 #L 41.0-53.0 % Mean Corpuscular Volume 88.5 80.0-100.0 fL Mean Corpuscular Hemoglobin 27.5 L 28.0-32.0 pg Mean Corpuscular Hemoglobin Concent 31.0 L 32.0-36.0 g/dL Red Cell Distribution Width 18.5 H 11.8-14.3 % Platelet Count 153 # 140-450 10^3/uL Mean Platelet Volume 9.2 6.9-10.8 fL Neutrophils (%) (Auto) 77.2 37.0-80.0 % Lymphocytes (%) (Auto) 19.7 10.0-50.0 % Monocytes (%) (Auto) 2.6 0.0-12.0 % Eosinophils (%) (Auto) 0.2 0.0-7.0 % Basophils (%) (Auto) 0.3 0.0-2.0 % Neutrophils # (Auto) 8.6 1.6-8.6 10 ^3/uL Lymphocytes # (Auto) 2.2 0.4-5.4 10 ^3/uL Monocytes # (Auto) 0.3 0-1.3 10 ^3/uL Eosinophils # (Auto) 0 0-0.8 10 ^3/uL Basophils # (Auto) 0 0-0.2 10 ^3/uL Nucleated Red Blood Cells 0.4 % Sodium Level 144 136-145 mmol/L Potassium Level 4.1 3.5-5.1 mmol/L Chloride Level 108 H 98-107 mmol/L Carbon Dioxide Level 24 20-31 mmol/L Anion Gap 12 5-15 Blood Urea Nitrogen 75 #H 9-23 mg/dL Creatinine 3.76 H 0.700-1.30 mg/dL Glomerular Filtration Rate Calc 17 >90 mL/min BUN/Creatinine Ratio 19.9 10.0-20.0 Serum Glucose 243 H 74-106 mg/dL Lactic Acid Level 4.4 *H 7.2 *H 0.4-2.0 mmol/L Calcium Level 8.9 8.7-10.4 mg/dL Total Bilirubin 1.1 H 0.2-1.0 mg/dL Aspartate Amino Transferase (AST) 279 H 13-40 U/L Alanine Aminotransferase (ALT) 77 H 7-40 U/L Alkaline Phosphatase 108 46-116 U/L Creatine Kinase 586 H 46-171 U/L Total Protein 5.3 L 5.7-8.2 g/dL Albumin 3.5 3.2-4.8 g/dL Blood Gas Specimen Type Arterial Blood Gas Sample Site Right radial Blood Gas Patient Temperature 37.0 Arterial Blood Date Drawn [id number] Arterial Blood pH 7.426 7.350-7.450 Arterial Blood Partial Pressure CO2 29.2 L 35.0-48.0 mmHg Arterial Blood Partial Pressure O2 229.7 H 83.0-108.0 mmHg Arterial Blood HCO3 18.8 L 21.0-28.0 mmol/L Arterial Blood Oxygen Saturation 99.4 H 94.0-98.0 % Arterial Blood Base Excess -4.6 L -2.0-3.0 mmol/L Arterial Blood Oxyhemoglobin 97.3 94.0-98.0 % Arterial Blood Carboxyhemoglobin 1.6 H 0.5-1.5 % Arterial Blood Methemoglobin 0.5 0.0-1.5 % Milo Test Modified Blood Gas Total Hemoglobin 10.50 L 13.5-17.5 g/dL Blood Gas Set Respiration Rate 18.0 Blood Gas Modality Vent - ac FiO2 % 80.0 Blood Gas Tidal Volume 500.0 Blood Gas PEEP or CPAP 5.0 Urine Color Yellow Yellow Urine Clarity Ex.turbid Clear Urine pH 5.5 5.0-9.0 Urine Specific [place] 1.014 1.001-1.035 Urine Protein 2+ H Negative Urine Ketones Negative Negative Urine Blood 2+ H Negative /uL Urine Nitrite Negative Negative Urine Bilirubin Negative Negative Urine Urobilinogen Normal Negative mg/dL Urine Leukocyte Esterase 3+ Negative /uL Urine RBC 154 0 - 3 /hpf Urine WBC Clumps Present None Seen /hpf Urine Microscopic WBC 1317 H 0-3 /HPF Urine Squamous Epithelial Cells None seen <5 /hpf Urine Bacteria None seen None Seen /hpf Urine Yeast (Budding) Loaded None Seen /hpf Urine Glucose 2+ H Normal mg/dL Test 03/17/25 08:59 03/17/25 08:23 Range/Units Blood Gas Specimen Type Arterial Blood Gas Sample Site Right radial Blood Gas Patient Temperature 37.0 Arterial Blood Date Drawn [id number] Arterial Blood pH 7.218 *L 7.350-7.450 Arterial Blood Partial Pressure CO2 51.0 H 35.0-48.0 mmHg Arterial Blood Partial Pressure O2 106.1 83.0-108.0 mmHg Arterial Blood HCO3 20.3 L 21.0-28.0 mmol/L Arterial Blood Oxygen Saturation 96.1 94.0-98.0 % Arterial Blood Base Excess -7.4 L -2.0-3.0 mmol/L Arterial Blood Oxyhemoglobin 92.8 L 94.0-98.0 % Arterial Blood Carboxyhemoglobin 2.9 H 0.5-1.5 % Arterial Blood Methemoglobin 0.5 0.0-1.5 % Milo Test Modified Blood Gas Total Hemoglobin 10.70 L 13.5-17.5 g/dL Blood Gas Set Respiration Rate 18.0 Blood Gas Modality Vent - ac FiO2 % 100.0 Blood Gas Tidal Volume 500.0 Blood Gas PEEP or CPAP 5.0 Blood Gas Critical Value Read Back Yes Blood Gas Notified Whom Md. hernandez Blood Gas Notified Time [id number] Blood Gas Notified By Spanish Speaking Babysitter martina wagoner White Blood Count 7.9 4.4-10.8 10^3/uL Red Blood Count 3.25 L 4.5-5.90 10^6/uL Hemoglobin 9.0 L 13.5-17.5 g/dL Hematocrit 29.4 L 41.0-53.0 % Mean Corpuscular Volume 90.6 80.0-100.0 fL Mean Corpuscular Hemoglobin 27.7 L 28.0-32.0 pg Mean Corpuscular Hemoglobin Concent 30.5 L 32.0-36.0 g/dL Red Cell Distribution Width 19.4 H 11.8-14.3 % Platelet Count 96 L 140-450 10^3/uL Mean Platelet Volume 10.3 6.9-10.8 fL Neutrophils (%) (Auto) 51.6 37.0-80.0 % Lymphocytes (%) (Auto) 40.1 10.0-50.0 % Monocytes (%) (Auto) 5.6 0.0-12.0 % Eosinophils (%) (Auto) 2.1 0.0-7.0 % Basophils (%) (Auto) 0.6 0.0-2.0 % Neutrophils # (Auto) 4.1 1.6-8.6 10 ^3/uL Lymphocytes # (Auto) 3.2 0.4-5.4 10 ^3/uL Monocytes # (Auto) 0.4 0-1.3 10 ^3/uL Eosinophils # (Auto) 0.2 0-0.8 10 ^3/uL Basophils # (Auto) 0 0-0.2 10 ^3/uL Nucleated Red Blood Cells 1.1 % Prothrombin Time 15.1 H 9.3-11.8 sec Prothrombin Time INR 1.48 H 0.9-1.15 Activated Partial Thromboplast Time 40.4 H 24.5-34.5 SEC Sodium Level 145 136-145 mmol/L Potassium Level 3.7 3.5-5.1 mmol/L Chloride Level 105 98-107 mmol/L Carbon Dioxide Level 24 20-31 mmol/L Anion Gap 16 H 5-15 Blood Urea Nitrogen 61 H 9-23 mg/dL Creatinine 3.58 H 0.700-1.30 mg/dL Glomerular Filtration Rate Calc 18 >90 mL/min BUN/Creatinine Ratio 17.0 10.0-20.0 Serum Glucose 310 H 74-106 mg/dL Lactic Acid Level 10.5 *H 0.4-2.0 mmol/L Calcium Level 9.0 8.7-10.4 mg/dL Total Bilirubin 0.2 0.2-1.0 mg/dL Aspartate Amino Transferase (AST) 39 13-40 U/L Alanine Aminotransferase (ALT) 18 7-40 U/L Alkaline Phosphatase 68 46-116 U/L Troponin I High Sensitivity 79 *H </=54 ng/L B-Type Natriuretic Peptide 744.21 0-100 pg/mL Total Protein 4.9 L 5.7-8.2 g/dL Albumin 3.2 3.2-4.8 g/dL Current Medications Medications (Trade) Dose Ordered Sig/Genesis Route Start Time Stop Time Status Last Admin Metronidazole 100 ml @ 100 mls/hr ONCE ONCE IV 03/17/25 09:15 03/17/25 10:14 DC 03/17/25 09:35 Sodium Chloride 1,000 ml @ 1,000 mls/hr Q1H ONCE IV 03/17/25 09:15 03/17/25 10:14 DC 03/17/25 08:50 Cefepime HCl 50 ml @ 50 mls/hr ONCE ONCE IV 03/17/25 09:30 03/17/25 10:29 DC 03/17/25 10:01 Epinephrine HCl 250 ml @ 7.5 mls/hr Q24H IV 03/17/25 09:30 03/17/25 13:24 DC 03/17/25 08:43 Norepinephrine Bitartrate 250 ml @ 3.75 mls/hr Q24H IV 03/17/25 09:30 03/17/25 08:51 Vancomycin HCl 250 ml @ 250 mls/hr ONCE ONCE IV 03/17/25 10:15 03/17/25 11:14 DC 03/17/25 10:47 Fentanyl Citrate 250 ml @ 2.5 mls/hr Q24H IV 03/17/25 13:15 03/17/25 14:09 Patient unconscious pain Had no ET tube in place. No pulse. Head intubate the patient in the ER. ACLS drugs use. Transfer CPR told care. Continue medication. Team involved in treatment. Family at bedside. Was able to revive the patient. Central line placed. Started fluids. Started pressors. Continue to monitor. Time of 1ST Reevaluation: 08:21 Reevaluation 1ST: Unchanged Patient Education/Counseling: Pt Unresponsive Family Education/Counseling: Diagnosis, Treatment, Prognosis SEPSIS Sepsis Screen Physician Orders Chest Portable (03/17/25 08:19) Electrocardigram (03/17/25 08:19) Ventilator Orders (03/17/25 08:22) Abg W/ Co-Ox (03/17/25 09:30) Respiratory Culture W/ Gs (03/17/25 08:22) Accucheck (03/17/25 09:15) Blood Culture (03/17/25 09:15) Notify Md If Map <65 Or Bp<90 (03/17/25 09:15) If Map<65 Start Vasopressor (03/17/25 09:15) Sepsis Reassesment After Fluid (03/17/25 10:15) Norepinephrine 8 Mg/250ml Kit (Levophed) (03/17/25 09:30) Rass Sedation Scale Q1HR (03/17/25 09:25) Head Without Contrast (03/17/25 09:38) Abg W/ Co-Ox (03/17/25 11:04) Chest Xray 1 View (03/17/25 11:44) Communication Order (03/17/25 08:43) Communication Order (03/17/25 08:51) Fentanyl Drip 2500mcg/250mlns (03/17/25 13:15) Magnesium (03/18/25 04:00) Phosphorus (03/18/25 04:00) Comprehensive Metabolic Panel (03/18/25 04:00) Complete Blood Count (03/18/25 04:00) Pantoprazole (Protonix) (03/18/25 10:00) Enoxaparin Sodium (Lovenox) (03/18/25 10:00) Ventilator Orders (03/17/25 13:24) Meropenem 1gm Ivpb (Merrem 1gm/ Ns) (03/17/25 22:00) Electrocardigram (03/17/25 13:23) Echo 2d Mode Cardiac Dop (03/17/25 13:23) Strict I & O QSHIFT (03/17/25 13:25) Abg W/ Co-Ox (03/17/25 15:30) Vital Signs Date Time Temp Pulse Resp B/P (MAP) Pulse Ox O2 Delivery O2 Flow Rate FiO2 03/17/25 13:38 62 03/17/25 12:20 61 21 142/48 (79) 100 50 03/17/25 12:00 96.6 62 19 156/55 (88) 100 96.6 03/17/25 11:40 62 19 155/54 (87) 100 03/17/25 11:20 62 19 155/63 (93) 100 03/17/25 11:06 Ambu-Bag 68 03/17/25 11:05 144/57 03/17/25 11:00 63 19 143/65 (91) 100 03/17/25 11:00 143/65 03/17/25 10:55 148/58 03/17/25 10:50 146/59 03/17/25 10:45 142/59 03/17/25 10:40 63 18 142/59 (86) 100 03/17/25 10:20 66 18 148/84 (105) 100 80 03/17/25 10:20 148/64 03/17/25 10:20 66 19 148/64 (92) 100 03/17/25 10:15 140/68 03/17/25 10:15 140/68 03/17/25 10:10 138/62 03/17/25 10:10 138/62 03/17/25 10:05 137/63 03/17/25 10:05 137/63 03/17/25 10:00 67 22 134/64 (87) 99 03/17/25 10:00 134/64 03/17/25 10:00 134/64 03/17/25 10:00 97.8 88 18 121/73 98 80 97.8 03/17/25 09:50 121/59 03/17/25 09:50 121/59 03/17/25 09:40 70 24 129/58 (81) 98 03/17/25 09:35 124/63 03/17/25 09:35 124/63 03/17/25 09:20 144/74 03/17/25 09:20 144/74 03/17/25 09:20 95.5 79 21 144/74 (97) 98 95.5 03/17/25 09:10 134/70 03/17/25 09:10 134/70 03/17/25 09:00 94 18 162/78 (106) 99 03/17/25 09:00 162/78 03/17/25 09:00 162/78 03/17/25 08:51 59/35 03/17/25 08:43 59/35 03/17/25 08:38 53 12 78/27 (44) 92 03/17/25 08:20 88 18 121/73 (89) 98 100 03/17/25 08:20 80 23 98 Mechanical Ventilator+ 80 80 03/17/25 08:19 88 03/17/25 08:11 97.8 132 128/80 (96) 97.8 03/17/25 07:53 97.8 0 0 0/0 0 97.8 Laboratory Tests Test 03/17/25 08:23 03/17/25 10:55 03/17/25 13:45 Lactic Acid Level 10.5 mmol/L (0.4-2.0) *H 7.2 mmol/L (0.4-2.0) *H 4.4 mmol/L (0.4-2.0) *H White Blood Count 7.9 10^3/uL (4.4-10.8) 11.2 10^3/uL (4.4-10.8) #H Medications Medications Dose Ordered Sig/Genesis Route Start Time Stop Time Status Last Admin Dose Admin Cefepime HCl 50 ml @ 50 mls/hr ONCE ONCE IV 03/17/25 09:30 03/17/25 10:29 DC 03/17/25 10:01 Epinephrine HCl 250 ml @ 7.5 mls/hr Q24H IV 03/17/25 09:30 03/17/25 13:24 DC 03/17/25 08:43 Fentanyl Citrate 250 ml @ 2.5 mls/hr Q24H IV 03/17/25 13:15 03/17/25 14:09 Metronidazole 100 ml @ 100 mls/hr ONCE ONCE IV 03/17/25 09:15 03/17/25 10:14 DC 03/17/25 09:35 Norepinephrine Bitartrate 250 ml @ 3.75 mls/hr Q24H IV 03/17/25 09:30 03/17/25 08:51 Sodium Chloride 1,000 ml @ 1,000 mls/hr Q1H ONCE IV 03/17/25 09:15 03/17/25 10:14 DC 03/17/25 08:50 Vancomycin HCl 250 ml @ 250 mls/hr ONCE ONCE IV 03/17/25 10:15 03/17/25 11:14 DC 03/17/25 10:47 Departure 1 Departure Time of Disposition: 09:36 Impression: Primary Impression: Respiratory failure Qualified Codes: J96.01 - Acute respiratory failure with hypoxia Additional Impressions: NSTEMI (non-ST elevated myocardial infarction) Cardiac arrest Disposition: ADMITTED INPATIENT Admit to: ICU Condition: Guarded Critical Care Note Critical Care Time?: Yes (90 min-critical care time only) Heart Score Heart Score: Heart Score Response (Comments) Value History Slightly Suspicious 0 EKG Normal 0 Age 45-64 1 Risk Factors >3 or Hx ASHD 2 Troponin N/A 0 Total 3 Stability Stability form required: No I personally scribed for LUZ STEVENS MD ([email or web address]) on 03/17/25 at 08:41. Electronically submitted by Ashely Mathew ([email or web address]). LUZ STEVENS MD Mar 17, 2025 08:41
[2025-03-17] MEDS: EPINEPHrine HCL 250 ML IV SCH (08:43)
[2025-03-17] MEDS: SODIUM CHLORIDE 0.9% 1,000 ML IV ONE (08:50)
[2025-03-17] MEDS: NOREPINEPHRINE 8 MG/250ML KIT 250 ML IV SCH (08:51)
--- NOTE | 2025-03-17 08:52 | DVH ---
CHEST RADIOGRAPH Indication: SP CPR INTUBATED Technique: Single frontal view of the chest was obtained COMPARISON: CHEST XRAY 1 VIEW on DOS: 11/01/21, CXR1 on DOS: 11/01/21 FINDINGS: Lines and Tubes: Endotracheal tube in satisfactory position. Median sternotomy. Lungs: Congestion Pleura: No effusion. No pneumothorax. Cardiomediastinal contours: Unremarkable Bones: Unremarkable IMPRESSION: Increased interstital prominence. This may represent pulmonary vascular congestion or viral pneumonia . Clinical correlation advised.
[2025-03-17 09:12] LABS: Base Excess -7.4 mmol/L (-2.0-3.0)
[2025-03-17] MEDS ORDERED: SODIUM CHLORIDE 0.9% 1,000 ML IV ONE (09:15)
[2025-03-17] MEDS ORDERED: VANCOMYCIN 1GM/200ML PM 200 ML IV ONE (09:15)
[2025-03-17] MEDS ORDERED: MIDAZOLAM DRIP 50 mg/50mL 50 ML IV SCH (09:30)
[2025-03-17] MEDS ORDERED: SODIUM BICARB IV ONE (09:30)
[2025-03-17] MEDS ORDERED: SOD CHL 0.45% IV ONE (09:30)
[2025-03-17] MEDS: PHENYLEPHRINE IV 250 ML IV ONE (09:35)
[2025-03-17] MEDS: EPINEPHrine HCL 250 ML IV ONE (09:36)
[2025-03-17] MEDS: EPINEPHrine HCL 1 MG/10 ML SYRG ONE (09:36)
[2025-03-17 10:01] LABS: Hematocrit 29.4 % (41.0-53.0); Hemoglobin 9.0 g/dL (13.5-17.5); Mean Corpuscular Hemoglobin 27.7 pg (28.0-32.0); Mean Corpuscular Volume 90.6 fL (80.0-100.0); Nucleated Red Blood Cells % 1.1 %
[2025-03-17] MEDS: CEFEPIME 1GM/ 50ML 50 ML IV ONE (10:01)
[2025-03-17 10:09] LABS: INR 1.48 (0.9-1.15); Partial Thromboplastin Time 40.4 SEC (24.5-34.5); Prothrombin Time 15.1 sec (9.3-11.8)
[2025-03-17 10:17] LABS: Alanine Aminotransferase 18 U/L (7-40); Alkaline Phosphatase 68 U/L (46-116); Anion Gap 16 (5-15); BUN/Creatinine Ratio 17.0 (10.0-20.0); Calcium 9.0 mg/dL (8.7-10.4); Carbon Dioxide 24 mmol/L (20-31); Chloride 105 mmol/L (98-107); Potassium 3.7 mmol/L (3.5-5.1); Sodium 145 mmol/L (136-145)
[2025-03-17 10:18] LABS: Albumin 3.2 g/dL (3.2-4.8); Bilirubin, Total 0.2 mg/dL (0.2-1.0); Blood Urea Nitrogen 61 mg/dL (9-23); Glucose 310 mg/dL (74-106); Total Protein 4.9 g/dL (5.7-8.2)
[2025-03-17 10:20] LABS: Lactic Acid w/Reflex 10.5 mmol/L (0.4-2.0)
[2025-03-17] MEDS: VANCOMYCIN 1GM/250ML KIT 250 ML IV ONE (10:47)
--- NOTE | 2025-03-17 11:03 | DVH ---
EXAM: CT HEAD WITHOUT CONTRAST INDICATION: altered TECHNIQUE: CT of the head without intravenous contrast. Coronal and sagittal reformatted images are s ubmitted. Radiation Dose : 1. Head: CT Dose: CTDI volume is 66.33 mGy. Dose-length product is 1.71 mGy*cm The dose indicators for CT are the volume Computed Tomography (CT) Dose Index (CTDIvol) and the Dose Length Product (DLP), and are measured in units of mGy and mGy-cm, respectively. These indicators are not patient dose, but values generated from the CT scanner acquisition factors. The report includes radiation exposure data for exposures received during this examination. All CT scans at this medical facility are performed using dose modulation techniques as appropriate to a performed exam including the following: Automated exposure control was utilized; adjustment of the MA and/or KV according to patient size; and use of iterative reconstruction technique. COMPARISON: MRI of the brain performed on 01/14/2021. FINDINGS: There is no evidence of acute intracranial hemorrhage, extra-axial collection, mass effect, midline s hift, herniation or hydrocephalus. The ventricles, sulci and cisterns are age appropriate. The rocha-white differentiation is intact. The visualized paranasal sinuses and mastoid air cells are clear. No depressed calvarial fracture. The surrounding soft tissues are unremarkable. IMPRESSION: 1. No evidence of acute intracranial abnormality.
--- NOTE | 2025-03-17 11:06 | RESUS ---
CODE BLUE ASSESSSMENT History of Events History of Events: FOUND DOWN AT HOME AT 0720. LAST SEEN NORMAL AT 0710. CPR INITIATED AT HOME. RECEIVE 4 EPI'S IN ROUTE BY EMS. AUTOPULSE ON, CPR IN PROGRESS. Initial Information Date: Mar 17, 2025 Time: 07:51 Location of Arrest: In Field Arrest Witnessed: No CPR started by whom: Bystander Last seen well: 0710 Pre-Hospital Care: ACLS Type of arrest: Cardiac Spontaneous Respirations: No Pulse Present: No Monitoring: ECG, Pulse Oximetry, Telemetry Crash Cart Opened and Supplies: Yes Airway Ventilation Breathing at Onset: Assisted Oxygen Delivery Method: Ambu-Bag Intubation Time: 07:55 Intubation Size: 8.0 cuffed Intubated by: HILDA Intubation Attempts: 1 Intubated orally: Yes Intubated Nasaly: No Tube secured at: 075 CO2 indicator used: Yes Confirmation: Auscultation, Exhaled CO2, Chest X-ray Circulation Circulation #1: Time: 07:53 Pulse Rate (adult): 0 Blood Pressure Systolic: 0 Blood Pressure Diastolic: 0 Temperature (Fahrenheit): 97.8 Circulation #2: Time: 07:57 Pulse Rate (adult): 0 Blood Pressure Systolic: 0 Blood Pressure Diastolic: 0 Circulation #3: Time: 07:55 Pulse Rate (adult): 0 Blood Pressure Systolic: 0 Blood Pressure Diastolic: 0 Circulation #4: Time: 07:59 Pulse Rate (adult): 0 Blood Pressure Systolic: 0 Blood Pressure Diastolic: 0 Circulation #5: Time: 08:01 Pulse Rate (adult): 0 Blood Pressure Systolic: 0 Blood Pressure Diastolic: 0 Circulation #6: Time: 08:04 Pulse Rate (adult): 68 Defibrillation Defbrillation : Time Defibrillator Applied: 07:58 Time Defibrillator Shocked Pt.: 08:08 Defib. Joules: 150 Pulse Present: No EKG Rhythm: V-Fibrillation Procedure - IV Procedure - IV #1: IV start time: 07:51 IV Side: Left IV Location: Wrist IV Catheter Type: Saline Lock IV Placed: In Hospital IV Gauge: 20 IV Line Care: Saline Flush Procedure - IV #2: IV Side: Right IV Location: Femoral IV Catheter Type: Triple Lumen Cath IV Placed: In Hospital IV Gauge: 18 IV Line Care: Saline Flush Procedure - Intraosseous Site of Intraosseous: Tibia agueda-medial Number of attempts for Intraos: 1 Medications & Response Medications and Responses #1: Medication Time: 07:51 ADULT Medications Given ADULT: Epinephrine 1 mg Route of Administration: IO Heart Rate: 0 EKG Rhythm: Asystole EKG Rhythm: Asystole Medications and Responses #2: Medication Time: 07:52 ADULT Medications Given ADULT: Sodium Bacarbinate 50 meq Route of Administration: IO Heart Rate: 0 EKG Rhythm: Asystole EKG Rhythm: Asystole Medications and Responses #3: Medication Time: 07:54 ADULT Medications Given ADULT: Calcium Chloride 10 mL Route of Administration: IV Heart Rate: 0 EKG Rhythm: Asystole EKG Rhythm: Asystole Medications and Responses #4: Medication Time: 07:54 ADULT Medications Given ADULT: Sodium Bacarbinate 50 meq Route of Administration: IV Heart Rate: 0 EKG Rhythm: Asystole EKG Rhythm: Asystole Medications and Responses #5: Medication Time: 07:55 ADULT Medications Given ADULT: Epinephrine 1 mg Route of Administration: IV Heart Rate: 0 EKG Rhythm: Asystole EKG Rhythm: Asystole Medications and Responses #6: Medication Time: 07:58 ADULT Medications Given ADULT: Epinephrine 1 mg Route of Administration: IV EKG Rhythm: Asystole EKG Rhythm: Asystole Medications and Responses #7: Medication Time: 08:01 ADULT Medications Given ADULT: Epinephrine 1 mg Heart Rate: 0 EKG Rhythm: Asystole Medications and Responses #8: Medication Time: 08:02 ADULT Medications Given ADULT: Sodium Bacarbinate 50 meq Route of Administration: IV Heart Rate: 0 EKG Rhythm: Asystole EKG Rhythm: PEA Medications and Responses #9: Medication Time: 08:09 ADULT Medications Given ADULT: Epinephrine 1 mg Route of Administration: IV Heart Rate: 0 EKG Rhythm: Asystole EKG Rhythm: V-Fibrillation Medications and Responses #10: Medication Time: 08:09 ADULT Medications Given ADULT: Amiodarone 300 mg Route of Administration: IV Heart Rate: 0 EKG Rhythm: V-Fibrillation, Asystole EKG Rhythm: Asystole Medications and Responses #11: Medication Time: 08:12 ADULT Medications Given ADULT: Epinephrine 1 mg Route of Administration: IV Heart Rate: 0 EKG Rhythm: Asystole EKG Rhythm: Asystole Procedure - Central Venous Cat Central venous catheter time: 08:13 Central venous catheter site: Rt Femoral Nurses Notes [place] Coma Scale Eye Opening: None (1) [place] Coma Scale Verbal: None (1) Glascow Total: 4MM Bedside Blood Glucose: 249 EKG Rhythm: Sinus Rhythm Time Code Ended Time Code Ended: 08:13 Post Arrest Status: Ventilated Outcome of code: Successful Family notified: Yes Attending called: No Code Team Present: HILDA PEREZ, DEE RN, IGOR RN, SKYLER EMT, HERNÁN EMT, KAVON RT, ERIC RT, BIRDIE Major RN ROSC Time of ROSC: 08:13 Pt Meets Criteria for Therapeu: No Therapeutic Hyperthermia Start: No RACHEL SYED Mar 17, 2025 11:06
[2025-03-17 11:08] LABS: Urine Budding Yeast LOADED /hpf (None Seen); Urine Protein, UAD 2+ (Negative); Urine WBC Clumps PRESENT /hpf (None Seen)
[2025-03-17] MEDS: NOREPINEPHRINE 8 MG/250ML KIT 250 ML IV ONE (11:58)
[2025-03-17] MEDS: MIDAZOLAM DRIP 50 mg/50mL 50 ML IV ONE (11:59)
--- NOTE | 2025-03-17 12:17 | DVH ---
CHEST RADIOGRAPH Indication: POST CENTRAL LINE INSERTION Technique: XY CHEST XRAY 1 VIEW COMPARISON: 03/17/25 FINDINGS: Endotracheal tube tip terminates 2.3 cm above the anne marie. Nasogastric tube projects towar ds stomach. Right IJ catheter tip projects over the cavoatrial junction. The cardiac silhouette is enlarged. The lungs demonstrate bilateral patchy airspace opacities, slight ly decreased from prior. The pulmonary vasculature is prominent. Moderate left and small right pleura l effusions. There is no pneumothorax. IMPRESSION: As above
--- NOTE | 2025-03-17 12:24 | DVHNC2 ---
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) Indication: Hypotension, CVP monitoring, Volume resuscitation Room prepared for procedure: Yes Photoengraving Photographer performed hand hygien: Yes Maximal sterile barrier precau: Mask/Eye shield, Sterile gown, Cap, Sterlie gloves, Large sterlie drape Skin Preparation: Chlorhexidine gluconate, Providine iodine Skin preparation completely dr: Yes Insertion site: Right, Internal jugular Central line catheter type: [id number] dialysis Number of lumens: 3 Central line exchanged over a: No Antiseptic ointment applied to: Yes Post Assessment: Chest X-Ray, Proper placement, No Pneumothorax Notes A time out was performed. My hands were washed immediately prior to the procedure. I wore a surgical cap, mask with protective eyewear, full gown and sterile gloves throughout the procedure. The patient was placed in Trendelenburg position. RIGHT chest region was prepped using chlorhexidine scrub and draped in sterile fashion using a full drape and sterile probe cover and sterile gel employed. The medial and lateral heads of the sternocleidomastoid muscle were identified as was the carotid pulse. The Internal Jugular vein was identified using the ultrasound. Anesthesia was achieved over the vein using 1% lidocaine. Using real-time out of plane guidance, the introducer needle was inserted into the Internal Jugular vein under direct ultrasound visualization. Venous blood was withdrawn. The syringe was removed and a guidewire was advanced into the introducer needle. The guidewire was visualized in the Internal Jugular Vein by ultrasound. A small incision was made at the skin surface with a scalpel and the introducer needle was exchanged for a dilator over the guidewire. After appropriate dilation was obtained, the dilator was exchanged over the wire for a _ central venous catheter. The wire was removed and the catheter was sutured in place at _ cm. A sterile sorbaview shield was placed over the catheter at the insertion site. The patient tolerated the proce dure without any hemodynamic compromise. At time of procedure completion, all ports aspirated and flushed properly. Post-procedure chest x-ray is pending at this time. Estimated blood loss is less than 5 ml. Date of Service: Mar 17, 2025 Billing Provider: LUZ STEVENS MD Common Visit Codes: PROCEDURE ONLY NOAH ABRAHAM RESIDENT Mar 17, 2025 12:24
[2025-03-17 12:25] LABS: Base Excess -4.6 mmol/L (-2.0-3.0)
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
[2025-03-17] MEDS: SODIUM CHLORIDE 0.9% 500 ML IV ONE (13:30)
[2025-03-17 14:07] LABS: Hemoglobin 10.4 g/dL (13.5-17.5)
[2025-03-17 14:08] LABS: Hematocrit 33.6 % (41.0-53.0); Mean Corpuscular Hemoglobin 27.5 pg (28.0-32.0); Mean Corpuscular Volume 88.5 fL (80.0-100.0); Nucleated Red Blood Cells % 0.4 %
[2025-03-17] MEDS: fentaNYL Drip 2500mCg/250mlNS 250 ML IV SCH (14:09)
[2025-03-17 14:17] LABS: Alkaline Phosphatase 108 U/L (46-116); Anion Gap 12 (5-15); BUN/Creatinine Ratio 19.9 (10.0-20.0); Calcium 8.9 mg/dL (8.7-10.4); Carbon Dioxide 24 mmol/L (20-31); Potassium 4.1 mmol/L (3.5-5.1); Sodium 144 mmol/L (136-145)
[2025-03-17 14:18] LABS: Albumin 3.5 g/dL (3.2-4.8); Bilirubin, Total 1.1 mg/dL (0.2-1.0)
[2025-03-17 14:19] LABS: Alanine Aminotransferase 77 U/L (7-40); Blood Urea Nitrogen 75 mg/dL (9-23); Chloride 108 mmol/L (98-107); Creatine Kinase IFCC 586 U/L (46-171); Glucose 243 mg/dL (74-106); Total Protein 5.3 g/dL (5.7-8.2)
[2025-03-17 14:26] LABS: Lactic Acid w/Reflex 4.4 mmol/L (0.4-2.0)
--- NOTE | 2025-03-17 15:39 | DVHSR ---
APPROVED REPORT EXAM: Two-dimensional and M-mode echocardiogram with Doppler and color Doppler. Blood Pressure: 142/48 mmHg INDICATION Post CPR RISK FACTORS Height: 5'10", Weight: 48 DIMENSIONS LVDd5.1 (3.8-5.7cm)LA (2D)5.3 (1.9-4.0cm)Aortic Root3.2 (2.0-3.7cm) LVDs4.2 (2.5-4.0cm)LA (MM) (1.9-4.0cm)Aortic Cusp Exc1.9 (1.5-2.0cm) EF (%) 39.0 (55-70%)Rt. Atrium5.0 (1.9-4.0cm)Asc. Aorta3.3 cm IVSd1.4 (0.7-1.1cm)RV (D) (1.8-2.4cm) PWd1.1 (0.7-1.1cm) Mitral Valve MitralMitral Stenosis E/A ratio0.02D MVAcm2 Aortic Valve Aortic ValveAortic Stenosis LVOT Diameter2.4 (1.8-2.4cm)Doppler AVAcm2 2D AVA2.28cm2 Pulmonic Valve V21.27m/s Tricuspid Valve TR Velocity2.81m/s [id number] Other Information Quality : Technically LimitedRhythm : Technically limited study due to on vent. Conclusion lvef 35% akinetic septum, RV enlarged moderate pulmonic reugrg mild to moderate tricuspdi regurg
[2025-03-17 16:18] LABS: Base Excess -0.4 mmol/L (-2.0-3.0)
[2025-03-17] MEDS ORDERED: ACETAMINOPHEN 325 MG RECT SUPP PR PRN (16:30)
[2025-03-17] MEDS ORDERED: DEXTROSE (50%) 50ML SYRG IV PRN (16:30)
--- NOTE | 2025-03-17 16:53 | DVHINCON2 ---
Date of service: Mar 17, 2025 History of Present Illness 64 yo M with pmh of CABG, DM, CKD, unknown further history had out of hospital cardiac arrest, unknown downtime, asystole and CPR with EMS ~40 minutes with ROSC, vfib shortly after s/p DCCV x1. Was started on pressors, intubated and placed RIJ TLC. Now off pressors. ROS cannot be performed due to acuity Physical exam Intubated, no sedation on mechanical ventilation Pupil fixed and mid dilated No gag, bucking vent Breathing over vent Chest with wound s/p dccv Mechanical breath sounds s1 s2 RRR murmur adomen distended, nontender no LE edema No babinski or triple reflex Past Medical History reviewed Family History: Cardiovascular disease G8 FATHER Diabetes mellitus G8 FATHER FH: dementia G8 MOTHER Hypertension G8 FATHER Ischemic heart disease Allergies: Coded Allergies: Iodinated Diagnostic Agents (Verified Allergy, Unknown, 01/11/21) Uncoded Allergies: ADHESIVE (Adverse Reaction, Unknown, 04/20/17) Home Meds Active Scripts Atorvastatin Calcium (Lipitor) 10 Mg Tab, 1 TAB PO DAILY, #30 TAB Prov:LEIGH KELLOGG MD 11/04/21 Docusate Sodium (Colace) 100 Mg Cap, 1 CAP PO BID PRN, #30 CAP Prov:LEIGH KELLOGG MD 11/04/21 Reported Medications Pantoprazole Sodium (PANTOPRAZOLE SODIUM) 40 Mg Inj, 40 MG PO DAILY, INJ 10/11/19 Latanoprost (LATANOPROST) 0.005 % Norah, 0.005 % OP DAILY, ML 10/11/19 Isosorbide Mononitrate (ISMO TABLET) 20 Mg Tb, 30 MG PO DAILY, TAB 10/11/19 Hydralazine Hcl (Hydralazine Hcl) 50 Mg Tab, 50 MG PO for 30 Days, MG 10/11/19 Insulin Regular (Human) (Humulin R U-500 Kwikpen) 500 Unit/Ml Inj, 500 UNIT SC TID, INJ 10/11/19 Gabapentin (Gabapentin) 600 Mg Tab, 600 MG PO TID for 30 Days, MG 10/11/19 Furosemide (Furosemide) 40 Mg Tab, 40 MG PO DAILY for 30 Days 10/11/19 Colchicine (Colchicine) 0.6 Mg Cap, 0.6 MG PO DAILY, CAP 10/11/19 Brimonidine Tartrate (Brimonidine Tartrate) 0.15 % Norah, 1 DROP OP TID, DROP 10/11/19 Aspirin (ASPIRIN 81) 81 Mg Tab, 81 MG OR DAILY, TAB 10/11/19 Ferric Citrate (Auryxia) 210 Mg Tab, 210 MG PO TIDWMEALS, TAB 10/11/19 Dorzolamide-Timolol (Dorzolamide Hcl/Timolol M) 1 Ml Norah, 1 DROP EACHEYE BID, #10 ML 3 Refills 10/11/19 Cholecalciferol (VITAMIN D3) 2,000 Unit Tab, OR, TAB 10/11/19 Febuxostat (Uloric) 40 Mg Tab, 1 TAB PO DAILY, #90 TAB 1 Refill 10/11/19 Albuterol Sulfate (VENTOLIN MDI) 90 Mcg Ih, 90 MCG IN BID for 30 Days, MCG 10/11/19 Topiramate (Topiramate) 50 Mg Tab, 50 MG PO BID for 30 Days, MG 10/11/19 Ranolazine (Ranexa) 1,000 Mg Tab, 1000 MG PO BID, TAB 10/11/19 Current Medications Current Medications Medications (Trade) Dose Ordered Sig/Genesis Route PRN Reason Start Time Stop Time Status Last Admin Cefepime HCl 50 ml @ 12.5 mls/hr Q24H IV 03/18/25 10:00 03/17/25 13:24 DC Epinephrine HCl 250 ml @ 7.5 mls/hr Q24H IV 03/17/25 09:30 03/17/25 13:24 DC 03/17/25 08:43 Norepinephrine Bitartrate 250 ml @ 3.75 mls/hr Q24H IV 03/17/25 09:30 03/17/25 08:51 Midazolam HCl 50 ml @ 1 mls/hr Q24H IV 03/17/25 09:30 03/17/25 13:08 DC Fentanyl Citrate 250 ml @ 2.5 mls/hr Q24H IV 03/17/25 13:15 03/17/25 14:09 Pantoprazole Sodium (Protonix) 40 mg DAILY IV 03/18/25 10:00 Enoxaparin Sodium (Lovenox) 30 mg DAILY SC 03/18/25 10:00 Meropenem 50 ml @ 17 mls/hr Q12HR IV 03/17/25 22:00 UNV Sodium Chloride (Saline Lock Ns) 10 ml Q8HR IV 03/17/25 22:00 Insulin Human (Reg)/Sodium Chloride 100 ml @ 0.5 mls/hr Q24H IV 03/17/25 16:30 Diagnostic Test (Pha) (Accu-Chek Comfort Curve T) 1 strip Q2HR 03/17/25 18:00 Dextrose 50 ml PRN PRN IV BG LESS Than 70 AND CALL MD 03/17/25 16:30 Acetaminophen (Tylenol Suppository) 325 mg Q4HP PRN SD PAIN SCALE 1-3 OR TEMP>100.4 03/17/25 16:30 Review of Systems 10 pt ros otherwise negative Vital Signs Vital Signs Date Time Temp Pulse Resp B/P (MAP) Pulse Ox O2 Delivery O2 Flow Rate FiO2 03/17/25 16:30 59 22 130/52 (78) 98 30 03/17/25 12:00 96.6 96.6 03/17/25 11:06 Ambu-Bag Physical Exam intubted sedated s1 s2 rrr diffuse rhonchi abd soft nt/nd trivia edema Labs/Diagnostic Data Labs Test 03/17/25 16:14 03/17/25 13:45 03/17/25 09:15 03/17/25 08:59 Range/Units Blood Gas Specimen Type Arterial Blood Gas Sample Site Right radial Blood Gas Patient Temperature 37.0 Arterial Blood Date Drawn [id number] Arterial Blood pH 7.493 H 7.350-7.450 Arterial Blood Partial Pressure CO2 29.6 L 35.0-48.0 mmHg Arterial Blood Partial Pressure O2 144.7 H 83.0-108.0 mmHg Arterial Blood HCO3 22.2 21.0-28.0 mmol/L Arterial Blood Oxygen Saturation 98.5 H 94.0-98.0 % Arterial Blood Base Excess -0.4 -2.0-3.0 mmol/L Arterial Blood Oxyhemoglobin 97.8 94.0-98.0 % Arterial Blood Carboxyhemoglobin 0.7 0.5-1.5 % Arterial Blood Methemoglobin 0.0 0.0-1.5 % Milo Test Modified Blood Gas Total Hemoglobin 10.70 L 13.5-17.5 g/dL Blood Gas Set Respiration Rate 18.0 Blood Gas Modality Vent - ac FiO2 % 50.0 Blood Gas Tidal Volume 450.0 Blood Gas PEEP or CPAP 5.0 White Blood Count 11.2 #H 4.4-10.8 10^3/uL Red Blood Count 3.79 L 4.5-5.90 10^6/uL Hemoglobin 10.4 #L 13.5-17.5 g/dL Hematocrit 33.6 #L 41.0-53.0 % Mean Corpuscular Volume 88.5 80.0-100.0 fL Mean Corpuscular Hemoglobin 27.5 L 28.0-32.0 pg Mean Corpuscular Hemoglobin Concent 31.0 L 32.0-36.0 g/dL Red Cell Distribution Width 18.5 H 11.8-14.3 % Platelet Count 153 # 140-450 10^3/uL Mean Platelet Volume 9.2 6.9-10.8 fL Neutrophils (%) (Auto) 77.2 37.0-80.0 % Lymphocytes (%) (Auto) 19.7 10.0-50.0 % Monocytes (%) (Auto) 2.6 0.0-12.0 % Eosinophils (%) (Auto) 0.2 0.0-7.0 % Basophils (%) (Auto) 0.3 0.0-2.0 % Neutrophils # (Auto) 8.6 1.6-8.6 10 ^3/uL Lymphocytes # (Auto) 2.2 0.4-5.4 10 ^3/uL Monocytes # (Auto) 0.3 0-1.3 10 ^3/uL Eosinophils # (Auto) 0 0-0.8 10 ^3/uL Basophils # (Auto) 0 0-0.2 10 ^3/uL Nucleated Red Blood Cells 0.4 % Sodium Level 144 136-145 mmol/L Potassium Level 4.1 3.5-5.1 mmol/L Chloride Level 108 H 98-107 mmol/L Carbon Dioxide Level 24 20-31 mmol/L Anion Gap 12 5-15 Blood Urea Nitrogen 75 #H 9-23 mg/dL Creatinine 3.76 H 0.700-1.30 mg/dL Glomerular Filtration Rate Calc 17 >90 mL/min BUN/Creatinine Ratio 19.9 10.0-20.0 Serum Glucose 243 H 74-106 mg/dL Lactic Acid Level 4.4 *H 0.4-2.0 mmol/L Calcium Level 8.9 8.7-10.4 mg/dL Total Bilirubin 1.1 H 0.2-1.0 mg/dL Aspartate Amino Transferase (AST) 279 H 13-40 U/L Alanine Aminotransferase (ALT) 77 H 7-40 U/L Alkaline Phosphatase 108 46-116 U/L Creatine Kinase 586 H 46-171 U/L Total Protein 5.3 L 5.7-8.2 g/dL Albumin 3.5 3.2-4.8 g/dL Urine Color Yellow Yellow Urine Clarity Ex.turbid Clear Urine pH 5.5 5.0-9.0 Urine Specific [place] 1.014 1.001-1.035 Urine Protein 2+ H Negative Urine Ketones Negative Negative Urine Blood 2+ H Negative /uL Urine Nitrite Negative Negative Urine Bilirubin Negative Negative Urine Urobilinogen Normal Negative mg/dL Urine Leukocyte Esterase 3+ Negative /uL Urine RBC 154 0 - 3 /hpf Urine WBC Clumps Present None Seen /hpf Urine Microscopic WBC 1317 H 0-3 /HPF Urine Squamous Epithelial Cells None seen <5 /hpf Urine Bacteria None seen None Seen /hpf Urine Yeast (Budding) Loaded None Seen /hpf Urine Glucose 2+ H Normal mg/dL Blood Gas Critical Value Read Back Yes Blood Gas Notified Whom Md. hernandez Blood Gas Notified Time [id number] Blood Gas Notified By [place] martina Darby 03/17/25 08:23 Range/Units Prothrombin Time 15.1 H 9.3-11.8 sec Prothrombin Time INR 1.48 H 0.9-1.15 Activated Partial Thromboplast Time 40.4 H 24.5-34.5 SEC Troponin I High Sensitivity 79 *H </=54 ng/L B-Type Natriuretic Peptide 744.21 0-100 pg/mL Assessment Out of hospital cardiac arrest resp failure cad s/p cabg and SVG pci 2019 severe chf AMS/ r/o anoxic brain injury Plan/Recommendation ecg on admit shows junctional rhythm echo shows significant LV dysfunction nstemi type 2 2/2 to arrest/ CPR/ ACLS neuro eval ongoing fio2 40% now, cont vent management pressors as needed monitor lactate poor prognosis asa/ statin 40 mins critical care time spent Plan discussed with: Other (rn) KAITY WYMAN MD Mar 17, 2025 16:53
[2025-03-17] MEDS: ACCU-CHEK COMFORT CURVE STRIP VI SCH (18:23)
[2025-03-17] MEDS: INSULIN DRIP 100 UNIT/100ML 100 ML IV SCH (18:51)
[2025-03-17] MEDS: PROPOFOL 100 ML IV SCH (19:45)
[2025-03-17] MEDS: MEROPENEM 1GM IVPB 50 ML IV SCH (22:00)
[2025-03-17] MEDS: SODIUM CHLOR 0.9% PF (SALINE LOCK) 10ML VIAL/SYR IV SCH (22:21)
[2025-03-17] MEDS: MEROPENEM 1GM IVPB 50 ML IV ONE (22:40)
[2025-03-18] VITALS (105 sets, daily range): BP systolic 89–119; BP diastolic 33–73; PULSE 22–59; RESP 9–20; TEMP 97.2–99.3; O2SAT 89–100
[2025-03-18 03:53] LABS: Hematocrit 30.0 % (41.0-53.0); Hemoglobin 9.9 g/dL (13.5-17.5); Mean Corpuscular Hemoglobin 27.9 pg (28.0-32.0); Mean Corpuscular Volume 84.5 fL (80.0-100.0); Nucleated Red Blood Cells % 0.1 %
[2025-03-18 04:28] LABS: Albumin 3.2 g/dL (3.2-4.8); Alkaline Phosphatase 92 U/L (46-116); Anion Gap 13 (5-15); BUN/Creatinine Ratio 17.1 (10.0-20.0); Bilirubin, Total 0.7 mg/dL (0.2-1.0); Carbon Dioxide 29 mmol/L (20-31); Chloride 106 mmol/L (98-107); Magnesium 2.3 mg/dL (1.6-2.6); Potassium 3.5 mmol/L (3.5-5.1)
[2025-03-18 04:29] LABS: Alanine Aminotransferase 56 U/L (7-40); Blood Urea Nitrogen 76 mg/dL (9-23); Calcium 8.6 mg/dL (8.7-10.4); Glucose 109 mg/dL (74-106); Sodium 148 mmol/L (136-145)
[2025-03-18 04:30] LABS: Total Protein 5.0 g/dL (5.7-8.2)
--- NOTE | 2025-03-18 06:35 | DVH ---
CHEST RADIOGRAPH Indication: INTUBATED Technique: XY CHEST XRAY 1 VIEW COMPARISON: 03/17/25 Comparison: XY CHEST XRAY 1 VIEW on DOS: 03/17/25, XY CHEST PORTABLE on DOS: 03/17/25, CHEST XRAY 1 VIEW on DOS: 11/01/21, CXR1 on DOS: 11/01/21, XY CHEST XRAY 1 VIEW on DOS: 03/17/25 FINDINGS: Endotracheal tube tip terminates 2.3 cm above the anne marie. Nasogastric tube projects towards stomach . Right IJ catheter tip projects over the cavoatrial junction. The cardiac silhouette is enlarged. The lungs demonstrate bilateral patchy airspace opacities, slight ly decreased from prior. The pulmonary vasculature is prominent. Moderate left and small right pleura l effusions. There is no pneumothorax. IMPRESSION: As above
[2025-03-18 07:05] LABS: Base Excess 3.2 mmol/L (-2.0-3.0)
[2025-03-18] MEDS: ENOXAPARIN SOD 30 MG/0.3 ML SYRINGE SC SCH (10:00)
[2025-03-18] MEDS: PANTOPRAZOLE 40 MG/10 ML VIAL INJ IV SCH (10:00)
[2025-03-18] MEDS ORDERED: CEFEPIME 1GM/ 50ML 50 ML IV SCH (10:00)
--- NOTE | 2025-03-18 10:42 | DVHPN2 ---
Progress Note Date Seen: Mar 18, 2025 Medical Necessity Reason Pt with a Central, PICC or Fol: No Subjective Patient reports: Other Other Systems: intubated minimal sedation Objective vital signs Vital Sign Date Time Temp Pulse Resp B/P (MAP) Pulse Ox O2 Delivery O2 Flow Rate FiO2 03/18/25 10:30 99.0 55 18 101/47 (65) 94 210.2 03/18/25 10:00 40 03/18/25 10:00 Mechanical Ventilator+ Total Intake and Output 03/17/25 03/17/25 03/18/25 15:00 23:00 07:00 Intake Total 1405 ml 129.325 ml 235.75 ml Output Total 75 ml 50 ml Balance 1405 ml 54.325 ml 185.75 ml medications Current Medications Medications Dose Ordered Sig/Genesis Route Start Time Stop Time Status Last Admin Dose Admin Norepinephrine Bitartrate 250 ml @ 3.75 mls/hr Q24H IV 03/17/25 09:30 03/17/25 08:51 56.25 MLS/HR Fentanyl Citrate 250 ml @ 2.5 mls/hr Q24H IV 03/17/25 13:15 03/18/25 03:22 17.5 MLS/HR Pantoprazole Sodium 40 mg DAILY IV 03/18/25 10:00 03/18/25 10:00 40 MG Enoxaparin Sodium 30 mg DAILY SC 03/18/25 10:00 03/18/25 10:00 30 MG Meropenem 50 ml @ 17 mls/hr Q12HR IV 03/17/25 22:00 UNV 03/18/25 10:13 17 MLS/HR Sodium Chloride 10 ml Q8HR IV 03/17/25 22:00 03/18/25 06:09 10 ML Insulin Human (Reg)/Sodium Chloride 100 ml @ 0.5 mls/hr Q24H IV 03/17/25 16:30 03/17/25 18:51 0.5 MLS/HR Diagnostic Test (Pha) 1 strip Q2HR 03/17/25 18:00 03/18/25 10:01 1 STRIP Dextrose 50 ml PRN PRN IV 03/17/25 16:30 Acetaminophen 325 mg Q4HP PRN TN 03/17/25 16:30 Propofol 100 ml @ 2.79 mls/hr Q24H IV 03/17/25 19:45 Examination: GENERAL:Abnormal, HEENT:Abnormal, LUNGS:Abnormal, CVS:Abnormal, ABDOMEN:Abnormal laboratory and microbiology Laboratory Tests 03/18/25 03:34 Test 03/18/25 03:34 Range/Units Serum Glucose 109 #H 74-106 mg/dL Microbiology Date/Time Source Procedure Growth Status 03/17/25 08:33 Blood Blood Culture - Preliminary NO GROWTH AFTER 24 HOURS OF INCUBATION. Resulted Problem List/Assessment/Plan Problem List/Assessment/Plan anxoic brain injury [facility] cad s;p cabg and pci obesity HTN ckd neuro eval pending, fu brain imaging severe lv dysfuncition supportiv care pressors as needed , minimal amount currently prn diuretics, fio2 is 40% prognosis is poor Plan discussed with: Patient, Other (rn ) Dietary Evaluation Review Comments: 1) Initiate Nephro-Rehana @ 1 tb qd 2) If patient remains NPO > 7 days, consider EN/TPN to meet at least 75% of estimated daily needs 3) If GI is preferred, consider Nepro @ 30 mL/hr goal rate as tolerated. Flush with 200 mL free H2O Q6H. Goal rate will provide 1296 kcals, 58g Pro, and 1323 mL free H2O (including TF flushes) per 24 hrs. TF regimen will meet ~ 96% estimated energy needs and 79% estimated protein needs. 4) Advance to 60g CCHO renal cardiac diet when medically feasible, pending ST approval 5) Follow-up with cardiology, pulmonology, neurology, and nephrology 6) Continue to monitor I&O, labs, and skin integrity Expected Outcomes/Goals: 1) patient to receive nutrition support within 7 days of NPO status 2) labs and wounds to improve 3) diet to advance 4) f/u in 2-3 days Date of Service: Mar 18, 2025 Billing Provider: KAITY WYMAN MD Common Visit Codes: NOT BILLABLE KAITY WYMAN MD Mar 18, 2025 10:42
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
[2025-03-18] MEDS: LINEZOLID 600MG/300ML 300 ML IV SCH (15:53)
--- NOTE | 2025-03-18 17:19 | DVHINCON2 ---
Date of service: Mar 17, [address] Deluca Reason for Consultation Acute respiratory failure History of Present Illness History Source: Patient, RN Notes, MD Notes Exam Limitations: Clinical condition HPI Patient is a 64-year old gentleman with a history of coronary artery disease and hypertension who presented in cardiac arrest, approximate downtime 30 minutes. He was seen in the emergency room where he was intubated during the event and placed on mechanical ventilation upon return of spontaneous circulation. Chest x-ray demonstrates interstitial prominence and vascular congestion. Pulmonology was consulted to assist in management. Home Meds Active Scripts Atorvastatin Calcium (Lipitor) 10 Mg Tab, 1 TAB PO DAILY, #30 TAB Prov:LEIGH KELLOGG MD 11/04/21 Docusate Sodium (Colace) 100 Mg Cap, 1 CAP PO BID PRN, #30 CAP Prov:LEIGH KELLOGG MD 11/04/21 Reported Medications Pantoprazole Sodium (PANTOPRAZOLE SODIUM) 40 Mg Inj, 40 MG PO DAILY, INJ 10/11/19 Latanoprost (LATANOPROST) 0.005 % Norah, 0.005 % OP DAILY, ML 10/11/19 Isosorbide Mononitrate (ISMO TABLET) 20 Mg Tb, 30 MG PO DAILY, TAB 10/11/19 Hydralazine Hcl (Hydralazine Hcl) 50 Mg Tab, 50 MG PO for 30 Days, MG 10/11/19 Insulin Regular (Human) (Humulin R U-500 Kwikpen) 500 Unit/Ml Inj, 500 UNIT SC TID, INJ 10/11/19 Gabapentin (Gabapentin) 600 Mg Tab, 600 MG PO TID for 30 Days, MG 10/11/19 Furosemide (Furosemide) 40 Mg Tab, 40 MG PO DAILY for 30 Days 10/11/19 Colchicine (Colchicine) 0.6 Mg Cap, 0.6 MG PO DAILY, CAP 10/11/19 Brimonidine Tartrate (Brimonidine Tartrate) 0.15 % Norah, 1 DROP OP TID, DROP 10/11/19 Aspirin (ASPIRIN 81) 81 Mg Tab, 81 MG OR DAILY, TAB 10/11/19 Ferric Citrate (Auryxia) 210 Mg Tab, 210 MG PO TIDWMEALS, TAB 10/11/19 Dorzolamide-Timolol (Dorzolamide Hcl/Timolol M) 1 Ml Norah, 1 DROP EACHEYE BID, #10 ML 3 Refills 10/11/19 Cholecalciferol (VITAMIN D3) 2,000 Unit Tab, OR, TAB 10/11/19 Febuxostat (Uloric) 40 Mg Tab, 1 TAB PO DAILY, #90 TAB 1 Refill 10/11/19 Albuterol Sulfate (VENTOLIN MDI) 90 Mcg Ih, 90 MCG IN BID for 30 Days, MCG 10/11/19 Topiramate (Topiramate) 50 Mg Tab, 50 MG PO BID for 30 Days, MG 10/11/19 Ranolazine (Ranexa) 1,000 Mg Tab, 1000 MG PO BID, TAB 10/11/19 Past Medical History Cardiac: CAD, HTN Pulmonary: No pertinent Hx Central Nervous System: No pertinent Hx GI: No pertinent Hx Hemotology/Oncology: No pertinent Hx Hepatobiliary: No pertinent Hx Psychiatric: No pertinent Hx Musculoskeletal: No pertinent Hx Rheumotologic: No pertinent Hx Infectious Disease: No peritnent Hx ENT: No pertinent Hx Renal/: No pertinent Hx Endocrine: No pertinent Hx Dermatology: No pertinent Hx Family History: CAD, DM, Hypertension Patient Family History: Cardiovascular disease G8 FATHER Diabetes mellitus G8 FATHER G8 FATHER FH: dementia G8 MOTHER Hypertension G8 FATHER Ischemic heart disease Smoker: No Hx (Negative) Alocohol: None Drugs: None Lives with: With family Domestic Violence: Neg Review of Systems Comments unable to perform- patient intubated and sedated H&P Exam Vital Signs Vital Signs Date Time Temp Pulse Resp B/P (MAP) Pulse Ox O2 Delivery O2 Flow Rate FiO2 03/18/25 16:00 18 91 Mechanical Ventilator+ 40 40 03/18/25 16:00 22 03/18/25 16:00 99.1 102/46 (64) 210.4 General Appeara: Well developed, Well nourished, Normal Appearance Head Exam: Normal inspection Neck Exam: Normal inspection, Non-tender, Normal alignment Eye Exam: bilateral eye Normal inspection, bilateral eye PERRL, bilateral eye EOMI Ear Exam: bilateral ear Auricle normal, bilateral ear Canal normal, bilateral ear TM normal Nasal Exam: Normal inspection Mouth: Normal Inspection Pulmonary/Respiratory: Decreased breath sounds Cardiovascular/Chest: Normal inspection Peripheral Pulses: 4+ Radial (R), 4+ Radial (L), 4+ Brachial (R), 4+ Brachial (L) Abdominal Exam: Normal bowel sounds Labs/Xrays Labs Test 03/18/25 15:52 03/18/25 06:56 03/18/25 03:34 03/17/25 16:14 Range/Units POC Glucose 99 70-106 mg/dl Blood Gas Specimen Type Arterial Blood Gas Sample Site Left radial Blood Gas Patient Temperature 37.0 Arterial Blood Date Drawn [id number] Arterial Blood pH 7.506 H 7.350-7.450 Arterial Blood Partial Pressure CO2 33.7 L 35.0-48.0 mmHg Arterial Blood Partial Pressure O2 63.4 L 83.0-108.0 mmHg Arterial Blood HCO3 26.0 21.0-28.0 mmol/L Arterial Blood Oxygen Saturation 91.7 L 94.0-98.0 % Arterial Blood Base Excess 3.2 H -2.0-3.0 mmol/L Arterial Blood Oxyhemoglobin 91.0 L 94.0-98.0 % Arterial Blood Carboxyhemoglobin 0.6 0.5-1.5 % Arterial Blood Methemoglobin 0.2 0.0-1.5 % Milo Test Modified Blood Gas Total Hemoglobin 11.50 L 13.5-17.5 g/dL Blood Gas Set Respiration Rate 18.0 Blood Gas Modality Vent - ac FiO2 % 40.0 Blood Gas Tidal Volume 450.0 White Blood Count 10.7 4.4-10.8 10^3/uL Red Blood Count 3.55 L 4.5-5.90 10^6/uL Hemoglobin 9.9 L 13.5-17.5 g/dL Hematocrit 30.0 #L 41.0-53.0 % Mean Corpuscular Volume 84.5 # 80.0-100.0 fL Mean Corpuscular Hemoglobin 27.9 L 28.0-32.0 pg Mean Corpuscular Hemoglobin Concent 33.0 32.0-36.0 g/dL Red Cell Distribution Width 18.9 H 11.8-14.3 % Platelet Count 141 140-450 10^3/uL Mean Platelet Volume 9.7 6.9-10.8 fL Neutrophils (%) (Auto) 80.5 H 37.0-80.0 % Lymphocytes (%) (Auto) 13.8 10.0-50.0 % Monocytes (%) (Auto) 3.7 0.0-12.0 % Eosinophils (%) (Auto) 1.4 0.0-7.0 % Basophils (%) (Auto) 0.6 0.0-2.0 % Neutrophils # (Auto) 8.6 1.6-8.6 10 ^3/uL Lymphocytes # (Auto) 1.5 0.4-5.4 10 ^3/uL Monocytes # (Auto) 0.4 0-1.3 10 ^3/uL Eosinophils # (Auto) 0.1 0-0.8 10 ^3/uL Basophils # (Auto) 0.1 0-0.2 10 ^3/uL Nucleated Red Blood Cells 0.1 % Sodium Level 148 H 136-145 mmol/L Potassium Level 3.5 3.5-5.1 mmol/L Chloride Level 106 98-107 mmol/L Carbon Dioxide Level 29 20-31 mmol/L Anion Gap 13 5-15 Blood Urea Nitrogen 76 H 9-23 mg/dL Creatinine 4.44 H 0.700-1.30 mg/dL Glomerular Filtration Rate Calc 14 >90 mL/min BUN/Creatinine Ratio 17.1 10.0-20.0 Serum Glucose 109 #H 74-106 mg/dL Calcium Level 8.6 L 8.7-10.4 mg/dL Phosphorus Level 3.9 2.4-5.1 mg/dL Magnesium Level 2.3 1.6-2.6 mg/dL Total Bilirubin 0.7 0.2-1.0 mg/dL Aspartate Amino Transferase (AST) 198 H 13-40 U/L Alanine Aminotransferase (ALT) 56 H 7-40 U/L Alkaline Phosphatase 92 46-116 U/L Total Protein 5.0 L 5.7-8.2 g/dL Albumin 3.2 3.2-4.8 g/dL Blood Gas PEEP or CPAP 5.0 Test 03/17/25 13:45 03/17/25 09:15 03/17/25 08:59 03/17/25 08:23 Range/Units Lactic Acid Level 4.4 *H 0.4-2.0 mmol/L Creatine Kinase 586 H 46-171 U/L Urine Color Yellow Yellow Urine Clarity Ex.turbid Clear Urine pH 5.5 5.0-9.0 Urine Specific [place] 1.014 1.001-1.035 Urine Protein 2+ H Negative Urine Ketones Negative Negative Urine Blood 2+ H Negative /uL Urine Nitrite Negative Negative Urine Bilirubin Negative Negative Urine Urobilinogen Normal Negative mg/dL Urine Leukocyte Esterase 3+ Negative /uL Urine RBC 154 0 - 3 /hpf Urine WBC Clumps Present None Seen /hpf Urine Microscopic WBC 1317 H 0-3 /HPF Urine Squamous Epithelial Cells None seen <5 /hpf Urine Bacteria None seen None Seen /hpf Urine Yeast (Budding) Loaded None Seen /hpf Urine Glucose 2+ H Normal mg/dL Blood Gas Critical Value Read Back Yes Blood Gas Notified Whom Md. hernandez Blood Gas Notified Time [id number] Blood Gas Notified By Hydrographical Technical Officer martina wagoner Prothrombin Time 15.1 H 9.3-11.8 sec Prothrombin Time INR 1.48 H 0.9-1.15 Activated Partial Thromboplast Time 40.4 H 24.5-34.5 SEC Troponin I High Sensitivity 79 *H </=54 ng/L B-Type Natriuretic Peptide 744.21 0-100 pg/mL Microbiology Date/Time Source Procedure Growth Status 03/17/25 14:50 Nose MRSA Screen - Final Methicillin Resistant S.aureus Complete 03/17/25 08:33 Blood Blood Culture - Preliminary NO GROWTH AFTER 24 HOURS OF INCUBATION. Resulted Assessment/Plan Plan Impression Acute hypoxemic respiratory failure Prolonged CPR S/p cardiac arrest Lactic acidosis Patient seen and examined Events On mechanical ventilation S/p intubation PEEP 5, FiO2 50% Imaging reviewed CT of the brain negative for acute abnormalities Labs reviewed BUN/Creatinine elevated Troponin elevated Serum lactate 10.5 Management Vent support Titrate to maintain sats 90% or above Sedation for vent synchrony Antibiotics Bronchodilators Monitor renal function Monitor electrolytes Supplement as needed Pressors as needed for hemodynamic support To maintain a mean arterial pressure of 65 mmHg F/u neurology Recommend echocardiogram F/u cardiology Prognosis generally poor Obtain ultrasound of the lower extremities for completeness DVT prophylaxis Critical care time 35 minutes Plan discussed with: Other (Rn) JADA HENSLEY MD Mar 18, 2025 17:19
--- NOTE | 2025-03-18 17:20 | DVHPN2 ---
Progress Note - Dictate Date Seen: Mar 18, 2025 Medical Necessity Reason Pt with a Central, PICC or Fol: No vital signs Vital Sign Date Time Temp Pulse Resp B/P (MAP) Pulse Ox O2 Delivery O2 Flow Rate FiO2 03/18/25 16:00 18 91 Mechanical Ventilator+ 40 40 03/18/25 16:00 22 03/18/25 16:00 99.1 102/46 (64) 210.4 Total Intake and Output 03/17/25 03/17/25 03/18/25 15:00 23:00 07:00 Intake Total 1405 ml 129.325 ml 235.75 ml Output Total 75 ml 50 ml Balance 1405 ml 54.325 ml 185.75 ml medications Current Medications Medications Dose Ordered Sig/Genesis Route Start Time Stop Time Status Last Admin Dose Admin Norepinephrine Bitartrate 250 ml @ 3.75 mls/hr Q24H IV 03/17/25 09:30 03/17/25 08:51 56.25 MLS/HR Fentanyl Citrate 250 ml @ 2.5 mls/hr Q24H IV 03/17/25 13:15 03/18/25 16:35 17.5 MLS/HR Pantoprazole Sodium 40 mg DAILY IV 03/18/25 10:00 03/18/25 10:00 40 MG Enoxaparin Sodium 30 mg DAILY SC 03/18/25 10:00 03/18/25 10:00 30 MG Meropenem 50 ml @ 17 mls/hr Q12HR IV 03/17/25 22:00 UNV 03/18/25 10:13 17 MLS/HR Sodium Chloride 10 ml Q8HR IV 03/17/25 22:00 03/18/25 14:16 10 ML Insulin Human (Reg)/Sodium Chloride 100 ml @ 0.5 mls/hr Q24H IV 03/17/25 16:30 03/17/25 18:51 0.5 MLS/HR Diagnostic Test (Pha) 1 strip Q2HR 03/17/25 18:00 03/18/25 15:52 1 STRIP Dextrose 50 ml PRN PRN IV 03/17/25 16:30 Acetaminophen 325 mg Q4HP PRN LA 03/17/25 16:30 Propofol 100 ml @ 2.79 mls/hr Q24H IV 03/17/25 19:45 Linezolid 300 ml @ 150 mls/hr Q12H IV 03/18/25 16:00 03/18/25 15:53 150 MLS/HR laboratory and microbiology Laboratory Tests 03/18/25 03:34 Test 03/18/25 03:34 Range/Units Serum Glucose 109 #H 74-106 mg/dL Assessment/Plan Impression Acute hypoxemic respiratory failure Prolonged CPR S/p cardiac arrest Lactic acidosis Patient seen and examined in ICU Events On mechanical ventilation S/p intubation PEEP 5, FiO2 30% Pupils fixed and dilated No reflexes present Concern raised for anoxic brain injury Family requesting more time Labs and imaging reviewed Management Vent support Titrate to maintain sats 90% or above Sedation for vent synchrony Continue antibiotics F/u cultures Bronchodilators Monitor renal function Monitor electrolytes Supplement as needed Pressors as needed for hemodynamic support To maintain a mean arterial pressure of 65 mmHg F/u neurology Recommend echocardiogram F/u cardiology Prognosis generally poor Concern raised for anoxic brain injury Family requesting more time DVT prophylaxis Critical care time 35 minutes Dietary Evaluation Review Comments: 1) Initiate Nephro-Rehana @ 1 tb qd 2) If patient remains NPO > 7 days, consider EN/TPN to meet at least 75% of estimated daily needs 3) If GI is preferred, consider Nepro @ 30 mL/hr goal rate as tolerated. Flush with 200 mL free H2O Q6H. Goal rate will provide 1296 kcals, 58g Pro, and 1323 mL free H2O (including TF flushes) per 24 hrs. TF regimen will meet ~ 96% estimated energy needs and 79% estimated protein needs. 4) Advance to 60g CCHO renal cardiac diet when medically feasible, pending ST approval 5) Follow-up with cardiology, pulmonology, neurology, and nephrology 6) Continue to monitor I&O, labs, and skin integrity Expected Outcomes/Goals: 1) patient to receive nutrition support within 7 days of NPO status 2) labs and wounds to improve 3) diet to advance 4) f/u in 2-3 days Plan discussed with: Other (Rn) JADA HENSLEY MD Mar 18, 2025 17:20
--- NOTE | 2025-03-18 18:06 | DVH ---
CLINICAL HISTORY: r/o DVT lower extremity edema TECHNIQUE: Color and duplex doppler imaging of the bilateral lower extremity veins was performed. Ves alfonso compression if possible was also performed. WID: COMPARISON: BI LOWER DVT on DOS: 01/29/22 FINDINGS: Evaluation of the right lower extremity veins due to the presence of a PICC and edema Right Lower Extremity: Right common femoral vein: Not visualized Right femoral vein: Not visualized Right popliteal vein: Normal compressibility and flow. Trifurcation veins are visualized and are patent. Calf veins otherwise are Not visualized Left Lower Extremity: Left common femoral vein: Normal compressibility and flow. Left femoral vein: Normal compressibility and flow. Left popliteal vein: Normal compressibility and flow. Proximal calf veins are normally compressible. Subcutaneous edema in the bilateral lower extremities. IMPRESSION: Limited evaluation of the right lower extremity due to the presence of a PICC in the groin and also l ower extremity edema. Only the popliteal vein and trifurcation veins were visualized . Otherwise, no DVT visualized in the bilateral lower extremity veins. Subcutaneous edema in the bilateral lower extremities.
[2025-03-18] MEDS: MEROPENEM 1GM IVPB 50 ML IV ONE (22:19)
[2025-03-19] VITALS (105 sets, daily range): BP systolic 85–150; BP diastolic 33–54; PULSE 56–65; RESP 13–21; TEMP 97.3–99.3; O2SAT 90–98
[2025-03-19 04:06] LABS: Hematocrit 28.9 % (41.0-53.0); Hemoglobin 9.3 g/dL (13.5-17.5); Mean Corpuscular Hemoglobin 26.8 pg (28.0-32.0); Mean Corpuscular Volume 83.5 fL (80.0-100.0); Nucleated Red Blood Cells % 0.1 %
--- NOTE | 2025-03-19 04:09 | DVH ---
CHEST RADIOGRAPH Indication: INTUBATED Technique: Single frontal view of the chest was obtained COMPARISON: XY CHEST XRAY 1 VIEW on DOS: 03/18/25, XY CHEST XRAY 1 VIEW on DOS: 03/17/25, XY CHEST PORTAB LE on DOS: 03/17/25, CHEST XRAY 1 VIEW on DOS: 11/01/21, CXR1 on DOS: 11/01/21 FINDINGS: Lines and Tubes: Unchanged. Lungs: Slight interval progression in bilateral pleural effusions and bibasilar pulmonary airspace di sease. No pneumothorax. Cardiomediastinal contours: Cardiomegaly status post median sternotomy. Bones: Unremarkable IMPRESSION: 1. Slight interval progression in bilateral pleural effusions and bibasilar pulmonary airspace diseas e. 2. Lines and tubes unchanged.
[2025-03-19 04:19] LABS: Potassium 4.0 mmol/L (3.5-5.1)
[2025-03-19 04:20] LABS: Anion Gap 9 (5-15); Carbon Dioxide 28 mmol/L (20-31)
[2025-03-19 04:24] LABS: Calcium 8.2 mg/dL (8.7-10.4); Chloride 108 mmol/L (98-107); Sodium 145 mmol/L (136-145)
[2025-03-19 04:25] LABS: BUN/Creatinine Ratio 14.6 (10.0-20.0)
[2025-03-19 04:26] LABS: Magnesium 2.1 mg/dL (1.6-2.6)
[2025-03-19 04:27] LABS: Blood Urea Nitrogen 76 mg/dL (9-23); Glucose 110 mg/dL (74-106)
--- NOTE | 2025-03-19 07:14 | ECG ---
[facility] Test Date: 2025-03-17 Test Time: 13:33:02 Pat Name: MIRIAN MCGILL Department: [facility] ED Patient ID: [id number] Room: [address] [place] [address] A Gender: M Information Security: NOEL : 1960 Requested By: EMERGENCY EMERGENCY Order Number: [id number] Reading MD: Dorian Mccallum Measurements Intervals [place] Rate: 62 P: 0 ID: 0 QRS: 52 QRSD: 122 T: 8 QT: 459 QTc: 467 Interpretive Statements Junctional rhythm Nonspecific intraventricular conduction delay Probable anteroseptal infarct, old Borderline T abnormalities, inferior leads Electronically Signed On 03-20-2025 18:15:58 PDT by Dorian Mccallum Please click the below link to view image of tracing.
[2025-03-19 07:15] LABS: Base Excess 3.1 mmol/L (-2.0-3.0)
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
[2025-03-19] MEDS ORDERED: Nepro With Carb Steady 1 Liter Bottle GT SCH (10:30)
--- NOTE | 2025-03-19 12:50 | MEDREC ---
[facility] ASP Intervention Section I [facility] ASP Intervention: Review courses of therapy (MRSA SCREEN POSITIVE CONSIDER ADDING MUPIROCIN 2% OINTMENT 1 APPLICATION IN EACH NOSTRIL BID FOR 5 DAYS ) LAITH JESUS PHARMACIST Mar 19, 2025 12:50
[2025-03-19] MEDS: SODIUM CHLORIDE 0.9% 500 ML IV ONE (13:30)
--- NOTE | 2025-03-19 15:38 | DVHPN2 ---
Progress Note - Dictate Date Seen: Mar 19, 2025 Medical Necessity Reason Pt with a Central, PICC or Fol: No vital signs Vital Sign Date Time Temp Pulse Resp B/P (MAP) Pulse Ox O2 Delivery O2 Flow Rate FiO2 03/19/25 14:34 58 18 126/42 (70) 96 60 03/19/25 14:00 98.6 209.5 03/19/25 14:00 Mechanical Ventilator+ Total Intake and Output 03/18/25 03/18/25 03/19/25 15:00 23:00 07:00 Intake Total 226 ml 437.75 ml 521.25 ml Output Total 100 ml 125 ml Balance 226 ml 337.75 ml 396.25 ml medications Current Medications Medications Dose Ordered Sig/Genesis Route Start Time Stop Time Status Last Admin Dose Admin Norepinephrine Bitartrate 250 ml @ 3.75 mls/hr Q24H IV 03/17/25 09:30 03/19/25 07:30 3.75 MLS/HR Fentanyl Citrate 250 ml @ 2.5 mls/hr Q24H IV 03/17/25 13:15 03/19/25 07:35 15 MLS/HR Pantoprazole Sodium 40 mg DAILY IV 03/18/25 10:00 03/19/25 10:03 40 MG Enoxaparin Sodium 30 mg DAILY SC 03/18/25 10:00 03/19/25 10:04 30 MG Meropenem 50 ml @ 17 mls/hr Q12HR IV 03/17/25 22:00 UNV 03/19/25 10:03 17 MLS/HR Sodium Chloride 10 ml Q8HR IV 03/17/25 22:00 03/19/25 10:04 10 ML Insulin Human (Reg)/Sodium Chloride 100 ml @ 0.5 mls/hr Q24H IV 03/17/25 16:30 03/19/25 10:06 1 MLS/HR Diagnostic Test (Pha) 1 strip Q2HR 03/17/25 18:00 03/19/25 13:55 1 STRIP Dextrose 50 ml PRN PRN IV 03/17/25 16:30 Acetaminophen 325 mg Q4HP PRN NC 03/17/25 16:30 Propofol 100 ml @ 2.79 mls/hr Q24H IV 03/17/25 19:45 Linezolid 300 ml @ 150 mls/hr Q12H IV 03/18/25 16:00 03/19/25 03:12 150 MLS/HR Enteral Nutritional Formula 1,000 ml 30ML/HR GT 03/19/25 10:30 laboratory and microbiology Laboratory Tests 03/19/25 03:31 Test 03/19/25 03:31 Range/Units Serum Glucose 110 H 74-106 mg/dL Assessment/Plan Impression Acute hypoxemic respiratory failure Prolonged CPR S/p cardiac arrest Lactic acidosis Patient seen and examined in ICU Events On mechanical ventilation S/p intubation PEEP 5, FiO2 60% Pupils fixed and dilated Concern raised for anoxic brain injury Labs and imaging reviewed BUN/creatinine trending up Management Vent support Titrate to maintain sats 90% or above Sedation for vent synchrony Continue antibiotics F/u cultures Bronchodilators Monitor renal function Monitor electrolytes Supplement as needed Pressors as needed for hemodynamic support To maintain a mean arterial pressure of 65 mmHg F/u neurology Recommend echocardiogram F/u cardiology Prognosis poor Concern raised for anoxic brain injury DVT prophylaxis Critical care time 35 minutes Dietary Evaluation Review Comments: 1) Initiate Nephro-Rehana @ 1 tb qd 2) If patient remains NPO > 7 days, consider EN/TPN to meet at least 75% of estimated daily needs 3) If GI is preferred, consider Nepro @ 30 mL/hr goal rate as tolerated. Flush with 200 mL free H2O Q6H. Goal rate will provide 1296 kcals, 58g Pro, and 1323 mL free H2O (including TF flushes) per 24 hrs. TF regimen will meet ~ 96% estimated energy needs and 79% estimated protein needs. 4) Advance to 60g CCHO renal cardiac diet when medically feasible, pending ST approval 5) Follow-up with cardiology, pulmonology, neurology, and nephrology 6) Continue to monitor I&O, labs, and skin integrity Expected Outcomes/Goals: 1) patient to receive nutrition support within 7 days of NPO status 2) labs and wounds to improve 3) diet to advance 4) f/u in 2-3 days Plan discussed with: Other (Rn) JADA HENSLEY MD Mar 19, 2025 15:38
--- NOTE | 2025-03-19 16:45 | DVH ---
CLINICAL INDICATION: Status post cardiac arrest. Neuro prognostication. COMPARISON: CT HEAD WITHOUT CONTRAST on DOS: 03/17/25, MRA ANGIO HEAD BRAIN on DOS: 01/14/21, BRAIN HEAD WO CONTRAST on DOS: 01/14/21 TECHNIQUE: Multisequence multiplanar MRI images of the brain were obtained without contrast. FINDINGS: Cerebral edema with swelling of the cortex and partial effacement of the lateral ventricle s, 3rd ventricle, 4th ventricle as well as the basal cisterns. There are arterial flow voids of the c [id number], although may be diminished. There is central descending transtentorial hernia and he rniation of the cerebellar tonsils below the level of the foramen magnum, effacing the CSF at and bel ow the level of the foramen magnum with mass effect on the spinal cord. There is diffusely abnormal s ignal on the diffusion-weighted imaging and ADC maps. Abnormal T2 hypointense signal in the brainstem , thalami, and middle cerebellar peduncles. Partially visualized nasogastric tube and fluid in the na sopharyngeal airway. Mild mucosal thickening of the paranasal sinuses. IMPRESSION: Cerebral edema associated with reported history of anoxic brain injury as detailed above. There is as sociated central descending transtentorial hernia and herniation of the cerebellar tonsils. There is effacement of the ventricles and basal cisterns. Additional findings as detailed above.
--- NOTE | 2025-03-19 16:48 | DVHINCON2 ---
Date of service: Mar 19, 2025 Reason for Consultation Acute kidney injury History of Present Illness 64-year-old male with past medical history of chronic kidney disease stage 4, history of coronary artery disease with a history of CABG, diabetes, hypertension patient was found unresponsive at home noted cardiac arrest patient had prolonged down time arrest laste greater than 40 minutes before return of spontaneous circulation occurred in the ER. Nephrology was consulted because of gradual worsening renal function over the last 48 hours. Allergies: Coded Allergies: Iodinated Diagnostic Agents (Verified Allergy, Unknown, 01/11/21) Uncoded Allergies: ADHESIVE (Adverse Reaction, Unknown, 04/20/17) Home Meds Active Scripts Atorvastatin Calcium (Lipitor) 10 Mg Tab, 1 TAB PO DAILY, #30 TAB Prov:LEIGH KELLOGG MD 11/04/21 Docusate Sodium (Colace) 100 Mg Cap, 1 CAP PO BID PRN, #30 CAP Prov:LEIGH KELLOGG MD 11/04/21 Reported Medications Pantoprazole Sodium (PANTOPRAZOLE SODIUM) 40 Mg Inj, 40 MG PO DAILY, INJ 10/11/19 Latanoprost (LATANOPROST) 0.005 % Norah, 0.005 % OP DAILY, ML 10/11/19 Isosorbide Mononitrate (ISMO TABLET) 20 Mg Tb, 30 MG PO DAILY, TAB 10/11/19 Hydralazine Hcl (Hydralazine Hcl) 50 Mg Tab, 50 MG PO for 30 Days, MG 10/11/19 Insulin Regular (Human) (Humulin R U-500 Kwikpen) 500 Unit/Ml Inj, 500 UNIT SC TID, INJ 10/11/19 Gabapentin (Gabapentin) 600 Mg Tab, 600 MG PO TID for 30 Days, MG 10/11/19 Furosemide (Furosemide) 40 Mg Tab, 40 MG PO DAILY for 30 Days 10/11/19 Colchicine (Colchicine) 0.6 Mg Cap, 0.6 MG PO DAILY, CAP 10/11/19 Brimonidine Tartrate (Brimonidine Tartrate) 0.15 % Norah, 1 DROP OP TID, DROP 10/11/19 Aspirin (ASPIRIN 81) 81 Mg Tab, 81 MG OR DAILY, TAB 10/11/19 Ferric Citrate (Auryxia) 210 Mg Tab, 210 MG PO TIDWMEALS, TAB 10/11/19 Dorzolamide-Timolol (Dorzolamide Hcl/Timolol M) 1 Ml Norah, 1 DROP EACHEYE BID, #10 ML 3 Refills 10/11/19 Cholecalciferol (VITAMIN D3) 2,000 Unit Tab, OR, TAB 10/11/19 Febuxostat (Uloric) 40 Mg Tab, 1 TAB PO DAILY, #90 TAB 1 Refill 10/11/19 Albuterol Sulfate (VENTOLIN MDI) 90 Mcg Ih, 90 MCG IN BID for 30 Days, MCG 10/11/19 Topiramate (Topiramate) 50 Mg Tab, 50 MG PO BID for 30 Days, MG 10/11/19 Ranolazine (Ranexa) 1,000 Mg Tab, 1000 MG PO BID, TAB 10/11/19 Current Medications Current Medications Medications (Trade) Dose Ordered Sig/Genesis Route PRN Reason Start Time Stop Time Status Last Admin Enteral Nutritional Formula (Nepro With Carb Steady) 1,000 ml 30ML/HR GT 03/19/25 10:30 Family History: Cardiovascular disease G8 FATHER Diabetes mellitus G8 FATHER G8 FATHER FH: dementia G8 MOTHER Hypertension G8 FATHER Ischemic heart disease Review of Systems Can not obtain due to critical illness H&P Exam Vital Signs/I&O Vital Sign Date Time Temp Pulse Resp B/P (MAP) Pulse Ox O2 Delivery O2 Flow Rate FiO2 03/19/25 16:08 63 18 126/37 (66) 97 60 03/19/25 16:00 Mechanical Ventilator+ 03/19/25 16:00 98.6 98.6 Intake and Output 03/18/25 03/19/25 19:00 07:00 Intake Total 578.25 ml 606.75 ml Output Total 100 ml 125 ml Balance 478.25 ml 481.75 ml Intake Oral 0 ml 0 ml IV Total 578.25 ml 606.75 ml Output Urine Total 100 ml 125 ml Physical Exam Elderly male Appears critically ill Large abdomen Morbidly obese Intubated Sedated Currently not on pressors Chronic venous stasis with 1+ ankle edema Collins catheter minimal urinary output and less than 40 cc Labs/Diagnostic Data Labs/Diagnostic Data Laboratory Tests Test 03/19/25 15:57 03/19/25 13:54 03/19/25 11:52 03/19/25 10:02 Range/Units POC Glucose 130 H 131 H 140 H 138 H 70-106 mg/dl Test 03/19/25 07:57 03/19/25 07:07 03/19/25 06:18 03/19/25 05:05 Range/Units POC Glucose 141 H 149 H 161 H 70-106 mg/dl Blood Gas Specimen Type Arterial Blood Gas Sample Site Left radial Blood Gas Patient Temperature 37.0 Arterial Blood Date Drawn [id number] Arterial Blood pH 7.457 H 7.350-7.450 Arterial Blood Partial Pressure CO2 39.3 35.0-48.0 mmHg Arterial Blood Partial Pressure O2 66.3 L 83.0-108.0 mmHg Arterial Blood HCO3 27.1 21.0-28.0 mmol/L Arterial Blood Oxygen Saturation 91.5 L 94.0-98.0 % Arterial Blood Base Excess 3.1 H -2.0-3.0 mmol/L Arterial Blood Oxyhemoglobin 91.0 L 94.0-98.0 % Arterial Blood Carboxyhemoglobin 0.3 L 0.5-1.5 % Arterial Blood Methemoglobin 0.3 0.0-1.5 % Milo Test Yes Blood Gas Total Hemoglobin 9.70 L 13.5-17.5 g/dL Blood Gas Set Respiration Rate 18.0 Blood Gas Modality Vent - ac FiO2 % 60.0 Blood Gas Tidal Volume 450.0 Blood Gas PEEP or CPAP 5.0 Test 03/19/25 03:31 03/19/25 02:22 03/19/25 00:16 03/18/25 22:29 Range/Units White Blood Count 11.1 H 4.4-10.8 10^3/uL Red Blood Count 3.47 L 4.5-5.90 10^6/uL Hemoglobin 9.3 L 13.5-17.5 g/dL Hematocrit 28.9 L 41.0-53.0 % Mean Corpuscular Volume 83.5 80.0-100.0 fL Mean Corpuscular Hemoglobin 26.8 L 28.0-32.0 pg Mean Corpuscular Hemoglobin Concent 32.2 32.0-36.0 g/dL Red Cell Distribution Width 18.5 H 11.8-14.3 % Platelet Count 114 L 140-450 10^3/uL Mean Platelet Volume 9.3 6.9-10.8 fL Neutrophils (%) (Auto) 78.2 37.0-80.0 % Lymphocytes (%) (Auto) 12.4 10.0-50.0 % Monocytes (%) (Auto) 5.7 0.0-12.0 % Eosinophils (%) (Auto) 3.1 0.0-7.0 % Basophils (%) (Auto) 0.6 0.0-2.0 % Neutrophils # (Auto) 8.7 H 1.6-8.6 10 ^3/uL Lymphocytes # (Auto) 1.4 0.4-5.4 10 ^3/uL Monocytes # (Auto) 0.6 0-1.3 10 ^3/uL Eosinophils # (Auto) 0.3 0-0.8 10 ^3/uL Basophils # (Auto) 0.1 0-0.2 10 ^3/uL Nucleated Red Blood Cells 0.1 % Sodium Level 145 136-145 mmol/L Potassium Level 4.0 3.5-5.1 mmol/L Chloride Level 108 H 98-107 mmol/L Carbon Dioxide Level 28 20-31 mmol/L Anion Gap 9 5-15 Blood Urea Nitrogen 76 H 9-23 mg/dL Creatinine 5.21 H 0.700-1.30 mg/dL Glomerular Filtration Rate Calc 12 >90 mL/min BUN/Creatinine Ratio 14.6 10.0-20.0 Serum Glucose 110 H 74-106 mg/dL Calcium Level 8.2 L 8.7-10.4 mg/dL Phosphorus Level 4.2 2.4-5.1 mg/dL Magnesium Level 2.1 1.6-2.6 mg/dL POC Glucose 119 H 104 122 H 70-106 mg/dl Test 03/18/25 20:26 03/18/25 17:59 03/18/25 15:52 03/18/25 14:14 Range/Units POC Glucose 136 H 142 H 99 105 70-106 mg/dl Test 03/18/25 11:47 03/18/25 09:59 03/18/25 08:01 03/18/25 06:56 Range/Units POC Glucose 101 91 96 70-106 mg/dl Blood Gas Specimen Type Arterial Blood Gas Sample Site Left radial Blood Gas Patient Temperature 37.0 Arterial Blood Date Drawn [id number] Arterial Blood pH 7.506 H 7.350-7.450 Arterial Blood Partial Pressure CO2 33.7 L 35.0-48.0 mmHg Arterial Blood Partial Pressure O2 63.4 L 83.0-108.0 mmHg Arterial Blood HCO3 26.0 21.0-28.0 mmol/L Arterial Blood Oxygen Saturation 91.7 L 94.0-98.0 % Arterial Blood Base Excess 3.2 H -2.0-3.0 mmol/L Arterial Blood Oxyhemoglobin 91.0 L 94.0-98.0 % Arterial Blood Carboxyhemoglobin 0.6 0.5-1.5 % Arterial Blood Methemoglobin 0.2 0.0-1.5 % Milo Test Modified Blood Gas Total Hemoglobin 11.50 L 13.5-17.5 g/dL Blood Gas Set Respiration Rate 18.0 Blood Gas Modality Vent - ac FiO2 % 40.0 Blood Gas Tidal Volume 450.0 Test 03/18/25 06:11 03/18/25 04:15 03/18/25 03:34 03/18/25 02:08 Range/Units POC Glucose 120 H 114 H 116 H 70-106 mg/dl White Blood Count 10.7 4.4-10.8 10^3/uL Red Blood Count 3.55 L 4.5-5.90 10^6/uL Hemoglobin 9.9 L 13.5-17.5 g/dL Hematocrit 30.0 #L 41.0-53.0 % Mean Corpuscular Volume 84.5 # 80.0-100.0 fL Mean Corpuscular Hemoglobin 27.9 L 28.0-32.0 pg Mean Corpuscular Hemoglobin Concent 33.0 32.0-36.0 g/dL Red Cell Distribution Width 18.9 H 11.8-14.3 % Platelet Count 141 140-450 10^3/uL Mean Platelet Volume 9.7 6.9-10.8 fL Neutrophils (%) (Auto) 80.5 H 37.0-80.0 % Lymphocytes (%) (Auto) 13.8 10.0-50.0 % Monocytes (%) (Auto) 3.7 0.0-12.0 % Eosinophils (%) (Auto) 1.4 0.0-7.0 % Basophils (%) (Auto) 0.6 0.0-2.0 % Neutrophils # (Auto) 8.6 1.6-8.6 10 ^3/uL Lymphocytes # (Auto) 1.5 0.4-5.4 10 ^3/uL Monocytes # (Auto) 0.4 0-1.3 10 ^3/uL Eosinophils # (Auto) 0.1 0-0.8 10 ^3/uL Basophils # (Auto) 0.1 0-0.2 10 ^3/uL Nucleated Red Blood Cells 0.1 % Sodium Level 148 H 136-145 mmol/L Potassium Level 3.5 3.5-5.1 mmol/L Chloride Level 106 98-107 mmol/L Carbon Dioxide Level 29 20-31 mmol/L Anion Gap 13 5-15 Blood Urea Nitrogen 76 H 9-23 mg/dL Creatinine 4.44 H 0.700-1.30 mg/dL Glomerular Filtration Rate Calc 14 >90 mL/min BUN/Creatinine Ratio 17.1 10.0-20.0 Serum Glucose 109 #H 74-106 mg/dL Calcium Level 8.6 L 8.7-10.4 mg/dL Phosphorus Level 3.9 2.4-5.1 mg/dL Magnesium Level 2.3 1.6-2.6 mg/dL Total Bilirubin 0.7 0.2-1.0 mg/dL Aspartate Amino Transferase (AST) 198 H 13-40 U/L Alanine Aminotransferase (ALT) 56 H 7-40 U/L Alkaline Phosphatase 92 46-116 U/L Total Protein 5.0 L 5.7-8.2 g/dL Albumin 3.2 3.2-4.8 g/dL Test 03/18/25 00:26 03/17/25 22:11 03/17/25 20:16 03/17/25 18:18 Range/Units POC Glucose 115 H 144 H 142 H 154 H 70-106 mg/dl Test 03/17/25 16:14 03/17/25 13:45 03/17/25 12:13 03/17/25 10:55 Range/Units Blood Gas Specimen Type Arterial Arterial Blood Gas Sample Site Right radial Right radial Blood Gas Patient Temperature 37.0 37.0 Arterial Blood Date Drawn [id number] Arterial Blood pH 7.493 H 7.426 7.350-7.450 Arterial Blood Partial Pressure CO2 29.6 L 29.2 L 35.0-48.0 mmHg Arterial Blood Partial Pressure O2 144.7 H 229.7 H 83.0-108.0 mmHg Arterial Blood HCO3 22.2 18.8 L 21.0-28.0 mmol/L Arterial Blood Oxygen Saturation 98.5 H 99.4 H 94.0-98.0 % Arterial Blood Base Excess -0.4 -4.6 L -2.0-3.0 mmol/L Arterial Blood Oxyhemoglobin 97.8 97.3 94.0-98.0 % Arterial Blood Carboxyhemoglobin 0.7 1.6 H 0.5-1.5 % Arterial Blood Methemoglobin 0.0 0.5 0.0-1.5 % Milo Test Modified Modified Blood Gas Total Hemoglobin 10.70 L 10.50 L 13.5-17.5 g/dL Blood Gas Set Respiration Rate 18.0 18.0 Blood Gas Modality Vent - ac Vent - ac FiO2 % 50.0 80.0 Blood Gas Tidal Volume 450.0 500.0 Blood Gas PEEP or CPAP 5.0 5.0 White Blood Count 11.2 #H 4.4-10.8 10^3/uL Red Blood Count 3.79 L 4.5-5.90 10^6/uL Hemoglobin 10.4 #L 13.5-17.5 g/dL Hematocrit 33.6 #L 41.0-53.0 % Mean Corpuscular Volume 88.5 80.0-100.0 fL Mean Corpuscular Hemoglobin 27.5 L 28.0-32.0 pg Mean Corpuscular Hemoglobin Concent 31.0 L 32.0-36.0 g/dL Red Cell Distribution Width 18.5 H 11.8-14.3 % Platelet Count 153 # 140-450 10^3/uL Mean Platelet Volume 9.2 6.9-10.8 fL Neutrophils (%) (Auto) 77.2 37.0-80.0 % Lymphocytes (%) (Auto) 19.7 10.0-50.0 % Monocytes (%) (Auto) 2.6 0.0-12.0 % Eosinophils (%) (Auto) 0.2 0.0-7.0 % Basophils (%) (Auto) 0.3 0.0-2.0 % Neutrophils # (Auto) 8.6 1.6-8.6 10 ^3/uL Lymphocytes # (Auto) 2.2 0.4-5.4 10 ^3/uL Monocytes # (Auto) 0.3 0-1.3 10 ^3/uL Eosinophils # (Auto) 0 0-0.8 10 ^3/uL Basophils # (Auto) 0 0-0.2 10 ^3/uL Nucleated Red Blood Cells 0.4 % Sodium Level 144 136-145 mmol/L Potassium Level 4.1 3.5-5.1 mmol/L Chloride Level 108 H 98-107 mmol/L Carbon Dioxide Level 24 20-31 mmol/L Anion Gap 12 5-15 Blood Urea Nitrogen 75 #H 9-23 mg/dL Creatinine 3.76 H 0.700-1.30 mg/dL Glomerular Filtration Rate Calc 17 >90 mL/min BUN/Creatinine Ratio 19.9 10.0-20.0 Serum Glucose 243 H 74-106 mg/dL Lactic Acid Level 4.4 *H 7.2 *H 0.4-2.0 mmol/L Calcium Level 8.9 8.7-10.4 mg/dL Total Bilirubin 1.1 H 0.2-1.0 mg/dL Aspartate Amino Transferase (AST) 279 H 13-40 U/L Alanine Aminotransferase (ALT) 77 H 7-40 U/L Alkaline Phosphatase 108 46-116 U/L Creatine Kinase 586 H 46-171 U/L Total Protein 5.3 L 5.7-8.2 g/dL Albumin 3.5 3.2-4.8 g/dL Test 03/17/25 09:15 03/17/25 08:59 03/17/25 08:23 Range/Units Urine Color Yellow Yellow Urine Clarity Ex.turbid Clear Urine pH 5.5 5.0-9.0 Urine Specific [place] 1.014 1.001-1.035 Urine Protein 2+ H Negative Urine Ketones Negative Negative Urine Blood 2+ H Negative /uL Urine Nitrite Negative Negative Urine Bilirubin Negative Negative Urine Urobilinogen Normal Negative mg/dL Urine Leukocyte Esterase 3+ Negative /uL Urine RBC 154 0 - 3 /hpf Urine WBC Clumps Present None Seen /hpf Urine Microscopic WBC 1317 H 0-3 /HPF Urine Squamous Epithelial Cells None seen <5 /hpf Urine Bacteria None seen None Seen /hpf Urine Yeast (Budding) Loaded None Seen /hpf Urine Glucose 2+ H Normal mg/dL Blood Gas Specimen Type Arterial Blood Gas Sample Site Right radial Blood Gas Patient Temperature 37.0 Arterial Blood Date Drawn [id number] Arterial Blood pH 7.218 *L 7.350-7.450 Arterial Blood Partial Pressure CO2 51.0 H 35.0-48.0 mmHg Arterial Blood Partial Pressure O2 106.1 83.0-108.0 mmHg Arterial Blood HCO3 20.3 L 21.0-28.0 mmol/L Arterial Blood Oxygen Saturation 96.1 94.0-98.0 % Arterial Blood Base Excess -7.4 L -2.0-3.0 mmol/L Arterial Blood Oxyhemoglobin 92.8 L 94.0-98.0 % Arterial Blood Carboxyhemoglobin 2.9 H 0.5-1.5 % Arterial Blood Methemoglobin 0.5 0.0-1.5 % Milo Test Modified Blood Gas Total Hemoglobin 10.70 L 13.5-17.5 g/dL Blood Gas Set Respiration Rate 18.0 Blood Gas Modality Vent - ac FiO2 % 100.0 Blood Gas Tidal Volume 500.0 Blood Gas PEEP or CPAP 5.0 Blood Gas Critical Value Read Back Yes Blood Gas Notified Whom Md. hernandez Blood Gas Notified Time [id number] Blood Gas Notified By Traveling Buyer martina wagoner White Blood Count 7.9 4.4-10.8 10^3/uL Red Blood Count 3.25 L 4.5-5.90 10^6/uL Hemoglobin 9.0 L 13.5-17.5 g/dL Hematocrit 29.4 L 41.0-53.0 % Mean Corpuscular Volume 90.6 80.0-100.0 fL Mean Corpuscular Hemoglobin 27.7 L 28.0-32.0 pg Mean Corpuscular Hemoglobin Concent 30.5 L 32.0-36.0 g/dL Red Cell Distribution Width 19.4 H 11.8-14.3 % Platelet Count 96 L 140-450 10^3/uL Mean Platelet Volume 10.3 6.9-10.8 fL Neutrophils (%) (Auto) 51.6 37.0-80.0 % Lymphocytes (%) (Auto) 40.1 10.0-50.0 % Monocytes (%) (Auto) 5.6 0.0-12.0 % Eosinophils (%) (Auto) 2.1 0.0-7.0 % Basophils (%) (Auto) 0.6 0.0-2.0 % Neutrophils # (Auto) 4.1 1.6-8.6 10 ^3/uL Lymphocytes # (Auto) 3.2 0.4-5.4 10 ^3/uL Monocytes # (Auto) 0.4 0-1.3 10 ^3/uL Eosinophils # (Auto) 0.2 0-0.8 10 ^3/uL Basophils # (Auto) 0 0-0.2 10 ^3/uL Nucleated Red Blood Cells 1.1 % Prothrombin Time 15.1 H 9.3-11.8 sec Prothrombin Time INR 1.48 H 0.9-1.15 Activated Partial Thromboplast Time 40.4 H 24.5-34.5 SEC Sodium Level 145 136-145 mmol/L Potassium Level 3.7 3.5-5.1 mmol/L Chloride Level 105 98-107 mmol/L Carbon Dioxide Level 24 20-31 mmol/L Anion Gap 16 H 5-15 Blood Urea Nitrogen 61 H 9-23 mg/dL Creatinine 3.58 H 0.700-1.30 mg/dL Glomerular Filtration Rate Calc 18 >90 mL/min BUN/Creatinine Ratio 17.0 10.0-20.0 Serum Glucose 310 H 74-106 mg/dL Lactic Acid Level 10.5 *H 0.4-2.0 mmol/L Calcium Level 9.0 8.7-10.4 mg/dL Total Bilirubin 0.2 0.2-1.0 mg/dL Aspartate Amino Transferase (AST) 39 13-40 U/L Alanine Aminotransferase (ALT) 18 7-40 U/L Alkaline Phosphatase 68 46-116 U/L Troponin I High Sensitivity 79 *H </=54 ng/L B-Type Natriuretic Peptide 744.21 0-100 pg/mL Total Protein 4.9 L 5.7-8.2 g/dL Albumin 3.2 3.2-4.8 g/dL Microbiology Date/Time Source Procedure Growth Status 03/17/25 14:50 Nose MRSA Screen - Final Methicillin Resistant S.aureus Complete Assessment 64-year-old male past medical history of advanced chronic kidney disease stage 4 an extensive history of coronary artery disease with a history of CABG presented to the hospital with cardiac arrest. Patient's hospital course was complicated by concerning signs of anoxic brain injury secondary to cardiac arrest from prolonged downtime. Nephrology consulted due to worsening renal function. Acute kidney injury hemodynamically mediated due to hypoperfusion, can not exclude acute tubular necrosis Chronic kidney disease stage 4 Acute respiratory failure Cardiac arrest Coronary artery disease Congestive heart failure Anemia Urinary tract infection Obtain urine studies Diuretic challenge Maintain mean arterial pressure greater than 65 Cardiology consultation Strict Is&Os via [facility] Neu[facility] on board with workup presently patient does not have pupillary light response or gag reflex. Patient is status post MRI of the brain today pending results. From a nephrology standpoint patient's prognosis is significantly poor given history of advanced kidney disease. Overall no emergent indication for hemodialysis today however goals of care and family meeting will be recommended to determine risks and benefits of renal replacement therapy in the next 24 hours Critical care time spent 32 minutes Total care time spent 55 minutes Plan discussed with: Other (sister in law) AISHWARYA XAVIER MD Mar 19, 2025 16:48
[2025-03-19 16:53] LABS: Urine Protein, UAD 1+ (Negative)
[2025-03-19] MEDS: FUROSEMIDE 100 MG/10ML VIAL IV ONE (17:41)
[2025-03-19] MEDS: ALBUMIN 25% 100 ML IV ONE (17:42)
[2025-03-20] VITALS (107 sets, daily range): BP systolic 91–153; BP diastolic 34–58; PULSE 56–73; RESP 15–24; TEMP 97.6–99.8; O2SAT 93–99
[2025-03-20 04:17] LABS: Hematocrit 26.2 % (41.0-53.0); Hemoglobin 8.6 g/dL (13.5-17.5); Mean Corpuscular Hemoglobin 27.6 pg (28.0-32.0); Mean Corpuscular Volume 84.3 fL (80.0-100.0); Nucleated Red Blood Cells % 0.1 %
[2025-03-20 04:30] LABS: Alanine Aminotransferase 30 U/L (7-40); Albumin 3.2 g/dL (3.2-4.8); Anion Gap 13 (5-15); BUN/Creatinine Ratio 16.2 (10.0-20.0); Carbon Dioxide 26 mmol/L (20-31); Chloride 106 mmol/L (98-107); Potassium 3.9 mmol/L (3.5-5.1); Sodium 145 mmol/L (136-145)
[2025-03-20 04:33] LABS: Alkaline Phosphatase 154 U/L (46-116); Bilirubin, Total 1.7 mg/dL (0.2-1.0); Calcium 8.5 mg/dL (8.7-10.4); Glucose 132 mg/dL (74-106); Total Protein 5.1 g/dL (5.7-8.2)
[2025-03-20 04:35] LABS: Blood Urea Nitrogen 90 mg/dL (9-23)
[2025-03-20 07:32] LABS: Base Excess 0.2 mmol/L (-2.0-3.0)
--- NOTE | 2025-03-20 07:41 | ECG ---
[facility] Test Date: 2025-03-17 Test Time: 08:19:03 Pat Name: MIRIAN MCGILL Department: [facility] ED Room: [address] [place] [address] A Gender: M Diagnostic Assistant: gloria : 1960 Requested By: LILIA VERAS Order Number: [id number] Reading MD: Dorian Mccallum Measurements Intervals [place] Rate: 88 P: 0 OK: 0 QRS: 102 QRSD: 141 T: 17 QT: 333 QTc: 403 Interpretive Statements Accelerated junctional rhythm Nonspecific intraventricular conduction delay consider old anterior lateral NV Electronically Signed On 03-20-2025 18:13:32 PDT by Dorian Mccallum Please click the below link to view image of tracing.
--- NOTE | 2025-03-20 09:54 | DVHINCON2 ---
Date of service: Mar 20, 2025 Referring Physician Reason for Consultation Anoxic encephalopathy History of Present Illness Mr. Feldman is a 64 years old right-handed gentleman with a history of hypertension, diabetes, dyslipidemia, coronary artery disease, heart attack, chronic kidney failure, diabetic polyneuropathy, he came to the hospital on 03/17/2025 with a chief complaint of CPR. At that time, he is sedated, intubated, the history is a obtained from his brother and [id number]. I saw him on 01/12/2021 for seizure activity (syncope versus seizure) The last phone conversation with his [id number] around 03/17/2025 0715, but around 0720, his grand nephew reports him sleeping in the car, and when family came over, there was no refreshing or pulse, 911 dialed and the family lay him flat inside the car and started CPR on the 911 operate instruction. The EMS came over about 10 minutes, and they continued CPR with ROSC But he coded again at 03/17/2025 0751, with ROSC at 03/17/2025 0813 In , the patient had a SAH and was found to have a brain aneurysm, he was treated conservatively Since 2016, the patient has numbness in the feet and the legs, he denies pain, he was said to have neuropathy Code blue assessment. He was found down at home at 03/17/2025 0720 (last seen normal: 0710. CPR initiated at home. ROSC: 03/17/2025 [id number] Home medications included: Aspirin 81 mg daily, Lipitor 10 mg daily, carbamazepine 600 mg t.i.d., topiramate 50 mg b.i.d. Urinalysis, 03/17/2025: WBC: 717, urine WBC clumps: Present, urine leukocyte esterase: 3+ CBC, 03/17/2025: Combined metabolic and respiratory acidosis WBC/HB/PLT/MCV, 03/20/2025: 10.4/8.6/96/84.3 PT/INR/ABG, 03/17/2025: 15.1/1.48/40.4 BUN/CR, 03/17/2025: 61/3.58, 03/20/2025: 90/5.55 Lactic acid, 03/17/2025: 10.5 TBI/AST/ALT/AP, 03/17/2025: 0.2/39/18/68 03/20/25: 1 0.7/58/30/154 Echocardiogram, 10/12/2020: EF of 60% Carotid Doppler, 01/13/2021: 1. 50-69% diameter reduction stenosis at the left proximal internal carotid artery by spectral criteria. 2. Antegrade flow seen within the vertebral arteries bilaterally. 3. 1.3 cm complex cyst at the right thyroid lobe. Recommend dedicated thyroid ultrasound to the further evaluate CT head, 01/11/2021: 1. Cerebral involutional changes greater than expected for age. 2. Low attenuation infarct posterior lateral left occipital lobe, age indeterminate. There is asymmetric enlargement of the posterior horn of the left lateral ventricle adjacent the infarct, suggesting may be chronic. 3. Large mid line retrocerebellar fluid collection, prominent cisterna magna versus arachnoid cyst CT head, 03/17/2025: No evidence of acute intracranial abnormality MRI head, 01/14/2021: No acute CVA or acute intracranial changes. Generalized mild to moderate atrophy, tiny foci chronic deep white matter microvascular changes and small old left occipital infarct MRI head, 03/19/2025: Cerebral edema associated with reported history of anoxic brain injury as detailed above. There is associated central descending transtentorial hernia and herniation of the cerebellar tonsils. There is effacement of the ventricles and basal cisterns. Additional findings as detailed above. MRA head, : 1. Major intracranial arteries are patent with no significant stenosis. 2. No cerebral aneurysms or vascular malformations Past Medical History Hypertension, diabetes, dyslipidemia, coronary artery disease, heart attack, chronic kidney failure, diabetic polyneuropathy Past Surgical History CABG Family History: Cardiovascular disease G8 FATHER Diabetes mellitus G8 FATHER G8 FATHER FH: dementia G8 MOTHER Hypertension G8 FATHER Ischemic heart disease Family History Hypertension, diabetes, heart disease, dementia. No seizure Social History He smokes, but no history of alcohol recreational substances abuse Allergies: Coded Allergies: Iodinated Diagnostic Agents (Verified Allergy, Unknown, 01/11/21) Uncoded Allergies: ADHESIVE (Adverse Reaction, Unknown, 04/20/17) Home Meds Active Scripts Atorvastatin Calcium (Lipitor) 10 Mg Tab, 1 TAB PO DAILY, #30 TAB Prov:LEIGH KELLOGG MD 11/04/21 Docusate Sodium (Colace) 100 Mg Cap, 1 CAP PO BID PRN, #30 CAP Prov:LEIGH KELLOGG MD 11/04/21 Reported Medications Pantoprazole Sodium (PANTOPRAZOLE SODIUM) 40 Mg Inj, 40 MG PO DAILY, INJ 10/11/19 Latanoprost (LATANOPROST) 0.005 % Norah, 0.005 % OP DAILY, ML 10/11/19 Isosorbide Mononitrate (ISMO TABLET) 20 Mg Tb, 30 MG PO DAILY, TAB 10/11/19 Hydralazine Hcl (Hydralazine Hcl) 50 Mg Tab, 50 MG PO for 30 Days, MG 10/11/19 Insulin Regular (Human) (Humulin R U-500 Kwikpen) 500 Unit/Ml Inj, 500 UNIT SC TID, INJ 10/11/19 Gabapentin (Gabapentin) 600 Mg Tab, 600 MG PO TID for 30 Days, MG 10/11/19 Furosemide (Furosemide) 40 Mg Tab, 40 MG PO DAILY for 30 Days 10/11/19 Colchicine (Colchicine) 0.6 Mg Cap, 0.6 MG PO DAILY, CAP 10/11/19 Brimonidine Tartrate (Brimonidine Tartrate) 0.15 % Norah, 1 DROP OP TID, DROP 10/11/19 Aspirin (ASPIRIN 81) 81 Mg Tab, 81 MG OR DAILY, TAB 10/11/19 Ferric Citrate (Auryxia) 210 Mg Tab, 210 MG PO TIDWMEALS, TAB 10/11/19 Dorzolamide-Timolol (Dorzolamide Hcl/Timolol M) 1 Ml Norah, 1 DROP EACHEYE BID, #10 ML 3 Refills 10/11/19 Cholecalciferol (VITAMIN D3) 2,000 Unit Tab, OR, TAB 10/11/19 Febuxostat (Uloric) 40 Mg Tab, 1 TAB PO DAILY, #90 TAB 1 Refill 10/11/19 Albuterol Sulfate (VENTOLIN MDI) 90 Mcg Ih, 90 MCG IN BID for 30 Days, MCG 10/11/19 Topiramate (Topiramate) 50 Mg Tab, 50 MG PO BID for 30 Days, MG 10/11/19 Ranolazine (Ranexa) 1,000 Mg Tab, 1000 MG PO BID, TAB 10/11/19 Current Medications Current Medications Medications (Trade) Dose Ordered Sig/Genesis Route PRN Reason Start Time Stop Time Status Last Admin Enteral Nutritional Formula (Nepro With Carb Steady) 1,000 ml 30ML/HR GT 03/19/25 10:30 Review of Systems As above, the other systems are negative Vital Signs Vital Signs Date Time Temp Pulse Resp B/P (MAP) Pulse Ox O2 Delivery O2 Flow Rate FiO2 03/20/25 08:00 60 03/20/25 08:00 23 95 Mechanical Ventilator+ 03/20/25 08:00 68 03/20/25 07:55 141/37 (71) 03/20/25 04:00 98.9 98.9 Physical Exam The patient is well-nourished and well-developed with no distress. The patient is intubated HEENT: Normocephalic, neck supple, no carotid bruits Lungs: Clear to auscultation Cardiovascular: Regular rate and region, S1, S2, no murmurs Abdomen: Soft, nontender, normal bowel sounds MENTAL STATUS: Not responsive to the surroundings, CRANIAL NERVES: Pupils are equal, round and slightly reactive, 3-4 mm.There are no corneal reflexes, this is a are weak doll's eyes phenomenon. No signs of facial weakness. There are no gagging or coughing reflexes SENSATION: No responses to pain stimuli. MOTOR: Normal tone in the upper and lower extremity. Normal muscle bulk. No fasciculations. No spontaneous movement. REFLEXES: Deep tendon reflexes are symmetrical. No pathological reflexes. CEREBELLAR/COORDINATION: Deferred GAIT/STATION: deferred. Labs/Diagnostic Data Labs Test 03/20/25 07:55 03/20/25 07:18 03/20/25 03:10 03/19/25 16:35 Range/Units POC Glucose 160 H 70-106 mg/dl Blood Gas Specimen Type Arterial Blood Gas Sample Site Right brachial Blood Gas Patient Temperature 37.0 Arterial Blood Date Drawn [id number] Arterial Blood pH 7.452 H 7.350-7.450 Arterial Blood Partial Pressure CO2 35.1 35.0-48.0 mmHg Arterial Blood Partial Pressure O2 70.4 L 83.0-108.0 mmHg Arterial Blood HCO3 24.0 21.0-28.0 mmol/L Arterial Blood Oxygen Saturation 93.3 L 94.0-98.0 % Arterial Blood Base Excess 0.2 -2.0-3.0 mmol/L Arterial Blood Oxyhemoglobin 91.2 L 94.0-98.0 % Arterial Blood Carboxyhemoglobin 2.1 H 0.5-1.5 % Arterial Blood Methemoglobin 0.1 0.0-1.5 % Milo Test N/a Blood Gas Total Hemoglobin 8.70 L 13.5-17.5 g/dL Blood Gas Set Respiration Rate 18.0 Blood Gas Modality Vent - ac FiO2 % 60.0 Blood Gas Tidal Volume 450.0 Blood Gas PEEP or CPAP 5.0 White Blood Count 10.4 4.4-10.8 10^3/uL Red Blood Count 3.11 L 4.5-5.90 10^6/uL Hemoglobin 8.6 L 13.5-17.5 g/dL Hematocrit 26.2 L 41.0-53.0 % Mean Corpuscular Volume 84.3 80.0-100.0 fL Mean Corpuscular Hemoglobin 27.6 L 28.0-32.0 pg Mean Corpuscular Hemoglobin Concent 32.8 32.0-36.0 g/dL Red Cell Distribution Width 18.7 H 11.8-14.3 % Platelet Count 96 L 140-450 10^3/uL Mean Platelet Volume 9.5 6.9-10.8 fL Neutrophils (%) (Auto) 80.1 H 37.0-80.0 % Lymphocytes (%) (Auto) 10.6 10.0-50.0 % Monocytes (%) (Auto) 6.5 0.0-12.0 % Eosinophils (%) (Auto) 2.5 0.0-7.0 % Basophils (%) (Auto) 0.3 0.0-2.0 % Neutrophils # (Auto) 8.3 1.6-8.6 10 ^3/uL Lymphocytes # (Auto) 1.1 0.4-5.4 10 ^3/uL Monocytes # (Auto) 0.7 0-1.3 10 ^3/uL Eosinophils # (Auto) 0.3 0-0.8 10 ^3/uL Basophils # (Auto) 0 0-0.2 10 ^3/uL Nucleated Red Blood Cells 0.1 % Sodium Level 145 136-145 mmol/L Potassium Level 3.9 3.5-5.1 mmol/L Chloride Level 106 98-107 mmol/L Carbon Dioxide Level 26 20-31 mmol/L Anion Gap 13 5-15 Blood Urea Nitrogen 90 #*H 9-23 mg/dL Creatinine 5.55 H 0.700-1.30 mg/dL Glomerular Filtration Rate Calc 11 >90 mL/min BUN/Creatinine Ratio 16.2 10.0-20.0 Serum Glucose 132 H 74-106 mg/dL Calcium Level 8.5 L 8.7-10.4 mg/dL Total Bilirubin 1.7 H 0.2-1.0 mg/dL Aspartate Amino Transferase (AST) 158 H 13-40 U/L Alanine Aminotransferase (ALT) 30 7-40 U/L Alkaline Phosphatase 154 H 46-116 U/L Total Protein 5.1 L 5.7-8.2 g/dL Albumin 3.2 3.2-4.8 g/dL Urine Color Brown H Yellow Urine Clarity Ex.turbid Clear Urine pH 5.5 5.0-9.0 Urine Specific [place] 1.008 1.001-1.035 Urine Protein 1+ H Negative Urine Ketones Negative Negative Urine Blood 2+ H Negative /uL Urine Nitrite Negative Negative Urine Bilirubin Negative Negative Urine Urobilinogen Normal Negative mg/dL Urine Leukocyte Esterase 3+ Negative /uL Urine Creatinine 35.03 30.0-125.0 mg/dL Urine Sodium 32 L 40-220 mmol/L Urine Glucose Normal Normal mg/dL Test 03/19/25 03:31 03/17/25 13:45 03/17/25 09:15 03/17/25 08:59 Range/Units Phosphorus Level 4.2 2.4-5.1 mg/dL Magnesium Level 2.1 1.6-2.6 mg/dL Lactic Acid Level 4.4 *H 0.4-2.0 mmol/L Creatine Kinase 586 H 46-171 U/L Urine RBC 154 0 - 3 /hpf Urine WBC Clumps Present None Seen /hpf Urine Microscopic WBC 1317 H 0-3 /HPF Urine Squamous Epithelial Cells None seen <5 /hpf Urine Bacteria None seen None Seen /hpf Urine Yeast (Budding) Loaded None Seen /hpf Blood Gas Critical Value Read Back Yes Blood Gas Notified Whom Md. hernandez Blood Gas Notified Time [id number] Blood Gas Notified By Gun Sealing Machine Operator martina wagoner Test 03/17/25 08:23 Range/Units Prothrombin Time 15.1 H 9.3-11.8 sec Prothrombin Time INR 1.48 H 0.9-1.15 Activated Partial Thromboplast Time 40.4 H 24.5-34.5 SEC Troponin I High Sensitivity 79 *H </=54 ng/L B-Type Natriuretic Peptide 744.21 0-100 pg/mL Microbiology Date/Time Source Procedure Growth Status 03/17/25 14:50 Nose MRSA Screen - Final Methicillin Resistant S.aureus Complete 03/17/25 08:33 Blood Blood Culture - Final Staphylococcus epidermidis Complete Assessment Hypoxic encephalopathy Metabolic encephalopathy Cardiopulmonary arrest Status post CPR Kidney failure Shocked liver Current stroke History of subarachnoid hemorrhage/brain aneurysm Diabetic polyneuropathy Plan/Recommendation Monitoring Supportive treatment EEG ICU care Stabilize vitals Respiratory support/vent management Oxygen IV antibiotics GI prophylaxis DVT prophylaxis More recommendation per clinical course Progress: Guarded Critical care time spent 45 minutes This medical document was created using an electronic medical record system with [employer] dictation system. Although this document has been carefully reviewed, there may still be some phonetic and typographical errors. These areas are purely typographical due to imperfections of the software programs, and do not reflect any compromise in the patient's medical care. Plan discussed with: Other SANGEETA SNOWDEN MD Mar 20, 2025 09:54
--- NOTE | 2025-03-20 10:01 | DVHPN2 ---
Subjective 64-year-old male with a history of CABG and coronary artery disease and diabetes chronic kidney disease who had a cardiac arrest of unknown downtime, apparently CPR was done for 40 minutes with ROSC and then he was intubated and admitted to the ICU Currently he is off sedation since yesterday Allen no response to stimuli Pupils are about 3-4 mm and equal and fixed No response to Babinski No response to painful stimuli He is on Levophed drip No sedation Changes from previous H/P or p: Changes Objective Vitals Vital Signs Date Time Temp Pulse Resp B/P (MAP) Pulse Ox O2 Delivery O2 Flow Rate FiO2 03/20/25 08:00 60 03/20/25 08:00 23 95 Mechanical Ventilator+ 03/20/25 08:00 68 03/20/25 07:55 141/37 (71) 03/20/25 04:00 98.9 98.9 Intake/Output Intake and Output 03/20/25 07:00 Intake Total 1156.00 ml Output Total 375 ml Balance 781.00 ml Intake Oral 0 ml IV Total 1096.00 ml Tube Feeding 60 ml Output Urine Total 375 ml General Appearance: Other (Intubated, unresponsive) Lungs: Clear to auscultation, Normal air movement Cardiovascular: Regular rate, Normal S1, Normal S2 Abdomen: Normal bowel sounds, Soft, No tenderness Extremities: No edema Medications Current Medications Medications Dose Ordered Sig/Genesis Route Start Time Stop Time Status Last Admin Dose Admin Norepinephrine Bitartrate 250 ml @ 3.75 mls/hr Q24H IV 03/17/25 09:30 03/19/25 07:30 3.75 MLS/HR Fentanyl Citrate 250 ml @ 2.5 mls/hr Q24H IV 03/17/25 13:15 03/19/25 07:35 15 MLS/HR Pantoprazole Sodium 40 mg DAILY IV 03/18/25 10:00 03/20/25 09:16 40 MG Enoxaparin Sodium 30 mg DAILY SC 03/18/25 10:00 03/20/25 09:16 30 MG Meropenem 50 ml @ 17 mls/hr Q12HR IV 03/17/25 22:00 UNV 03/20/25 09:17 17 MLS/HR Sodium Chloride 10 ml Q8HR IV 03/17/25 22:00 03/20/25 09:16 10 ML Insulin Human (Reg)/Sodium Chloride 100 ml @ 0.5 mls/hr Q24H IV 03/17/25 16:30 03/19/25 10:06 1 MLS/HR Diagnostic Test (Pha) 1 strip Q2HR 03/17/25 18:00 03/20/25 07:57 1 STRIP Dextrose 50 ml PRN PRN IV 03/17/25 16:30 Acetaminophen 325 mg Q4HP PRN GA 03/17/25 16:30 Propofol 100 ml @ 2.79 mls/hr Q24H IV 03/17/25 19:45 Linezolid 300 ml @ 150 mls/hr Q12H IV 03/18/25 16:00 03/20/25 04:06 150 MLS/HR Enteral Nutritional Formula 1,000 ml 30ML/HR GT 03/19/25 10:30 Laboratory Results Laboratory Tests 03/20/25 03:10 Chemistry Test 03/20/25 03:10 Albumin 3.2 g/dL (3.2-4.8) Calcium Level 8.5 mg/dL (8.7-10.4) L Total Protein 5.1 g/dL (5.7-8.2) L LFT Test 03/20/25 03:10 Alanine Aminotransferase (ALT) 30 U/L (7-40) Alkaline Phosphatase 154 U/L (46-116) H Aspartate Amino Transferase (AST) 158 U/L (13-40) H Total Bilirubin 1.7 mg/dL (0.2-1.0) H Urinalysis Test 03/17/25 09:15 03/19/25 16:35 Urine RBC 154 /hpf (0 - 3) Urine WBC Clumps Present /hpf (None Seen) Urine Microscopic WBC 1317 /HPF (0-3) H Urine Squamous Epithelial Cells None seen /hpf (<5) Urine Bacteria None seen /hpf (None Seen) Urine Yeast (Budding) Loaded /hpf (None Seen) Urine Color Brown (Yellow) H Urine Clarity Ex.turbid (Clear) Urine pH 5.5 (5.0-9.0) Urine Specific [place] 1.008 (1.001-1.035) Urine Protein 1+ (Negative) H Urine Ketones Negative (Negative) Urine Blood 2+ /uL (Negative) H Urine Nitrite Negative (Negative) Urine Bilirubin Negative (Negative) Urine Urobilinogen Normal mg/dL (Negative) Urine Leukocyte Esterase 3+ /uL (Negative) Urine Creatinine 35.03 mg/dL (30.0-125.0) Urine Sodium 32 mmol/L (40-220) L Urine Glucose Normal mg/dL (Normal) Blood Gas Results Test 03/20/25 07:18 Arterial Blood pH 7.452 (7.350-7.450) FiO2 % 60.0 Microbiology Microbiology Date/Time Source Procedure Growth Status 03/17/25 14:50 Nose MRSA Screen - Final Methicillin Resistant S.aureus Complete 03/17/25 08:33 Blood Blood Culture - Final Staphylococcus epidermidis Complete Assessment/Plan Assessment/Plan Anoxic encephalopathy Cardiogenic shock Metabolic encephalopathy Acute hypoxic respiratory failure on mechanical ventilation MRSA in the nostril Coronary artery disease status post CABG Hypertension REJI Chronic kidney disease Possible aspiration pneumonia UTI Anemia most likely due to chronic kidney disease Bacteremia with staph epi Sepsis Plan Sepsis: Zyvox and meropenem Hypotension due to sepsis: Norepinephrine Acute respiratory failure: Mechanical ventilation Type 2 diabetes: Change Accu-Cheks to Q 4 hours with sliding scale Anoxic encephalopathy: Sedation is off Neurology consult EEG is pending MRI showed cerebral edema associated with reported history of anoxic brain injury Discussed with the brother at the bedside Full code for now The family is considering terminal weaning Plan discussed with: Other Date of Service: Mar 20, 2025 Billing Provider: DARREN SALAZAR MD Common Visit Codes: NOT BILLABLE DARREN SALAZAR MD Mar 20, 2025 10:01
[2025-03-20] MEDS ORDERED: DEXTROSE (50%) 50ML SYRG IV PRN (10:15)
--- NOTE | 2025-03-20 10:51 | DVHPN2 ---
Progress Note - Dictate Date Seen: Mar 20, 2025 Medical Necessity Reason Pt with a Central, PICC or Fol: No vital signs Vital Sign Date Time Temp Pulse Resp B/P (MAP) Pulse Ox O2 Delivery O2 Flow Rate FiO2 03/20/25 10:15 70 19 91/47 (62) 94 03/20/25 10:10 60 03/20/25 10:00 Mechanical Ventilator+ 03/20/25 08:00 98.4 98.4 Total Intake and Output 03/19/25 03/19/25 03/20/25 15:00 23:00 07:00 Intake Total 212 ml 506.75 ml 437.25 ml Output Total 75 ml 300 ml Balance 212 ml 431.75 ml 137.25 ml medications Current Medications Medications Dose Ordered Sig/Genesis Route Start Time Stop Time Status Last Admin Dose Admin Norepinephrine Bitartrate 250 ml @ 3.75 mls/hr Q24H IV 03/17/25 09:30 03/19/25 07:30 3.75 MLS/HR Fentanyl Citrate 250 ml @ 2.5 mls/hr Q24H IV 03/17/25 13:15 03/19/25 07:35 15 MLS/HR Pantoprazole Sodium 40 mg DAILY IV 03/18/25 10:00 03/20/25 09:16 40 MG Enoxaparin Sodium 30 mg DAILY SC 03/18/25 10:00 03/20/25 09:16 30 MG Meropenem 50 ml @ 17 mls/hr Q12HR IV 03/17/25 22:00 UNV 03/20/25 09:17 17 MLS/HR Sodium Chloride 10 ml Q8HR IV 03/17/25 22:00 03/20/25 09:16 10 ML Dextrose 50 ml PRN PRN IV 03/17/25 16:30 Acetaminophen 325 mg Q4HP PRN NV 03/17/25 16:30 Propofol 100 ml @ 2.79 mls/hr Q24H IV 03/17/25 19:45 Linezolid 300 ml @ 150 mls/hr Q12H IV 03/18/25 16:00 03/20/25 04:06 150 MLS/HR Enteral Nutritional Formula 1,000 ml 30ML/HR GT 03/19/25 10:30 Diagnostic Test (Pha) 1 strip IQ4HR 03/20/25 12:00 Insulin Human Regular IQ4HR SC 03/20/25 12:00 Dextrose 50 ml UD PRN IV 03/20/25 10:15 laboratory and microbiology Laboratory Tests 03/20/25 03:10 Test 03/20/25 03:10 Range/Units Serum Glucose 132 H 74-106 mg/dL Assessment/Plan Impression Acute hypoxemic respiratory failure Prolonged CPR S/p cardiac arrest Lactic acidosis Patient seen and examined in ICU Events On mechanical ventilation S/p intubation PEEP 5, FiO2 60% no events Pupils fixed and dilated Concern raised for anoxic brain injury MRI report noted Cerebral edema associated with reported history of anoxic brain injury as detailed above. There is associated central descending transtentorial hernia and herniation of the cerebellar tonsils. There is effacement of the ventricles and basal cisterns. Additional findings as detailed above. f/up with neuro prognosis v poor Labs and imaging reviewed BUN/creatinine trending up Management Vent support Titrate to maintain sats 90% or above Sedation for vent synchrony Continue antibiotics F/u cultures Bronchodilators Monitor renal function Monitor electrolytes Supplement as needed Pressors as needed for hemodynamic support To maintain a mean arterial pressure of 65 mmHg echocardiogram F/u cardiology DVT prophylaxis Critical care time 35 minutes Dietary Evaluation Review Comments: 1) Initiate Nephro-Rehana @ 1 tb qd 2) If patient remains NPO > 7 days, consider EN/TPN to meet at least 75% of estimated daily needs 3) If GI is preferred, consider Nepro @ 30 mL/hr goal rate as tolerated. Flush with 200 mL free H2O Q6H. Goal rate will provide 1296 kcals, 58g Pro, and 1323 mL free H2O (including TF flushes) per 24 hrs. TF regimen will meet ~ 96% estimated energy needs and 79% estimated protein needs. 4) [facility] diet when medically feasible, pending ST approval 5) Follow-up with cardiology, pulmonology, neurology, and nephrology 6) Continue to monitor I&O, labs, and skin integrity Expected Outcomes/Goals: 1) patient to receive nutrition support within 7 days of NPO status 2) labs and wounds to improve 3) diet to advance 4) f/u in 2-3 days Plan discussed with: Other (rn) JADA HENSLEY MD Mar 20, 2025 10:51
[2025-03-20] MEDS: ACCU-CHEK COMFORT CURVE STRIP VI SCH (11:50)
[2025-03-20] MEDS: InsuLIN REG 1unit/0.01ml Soln (100units/ml) SC SCH (11:51)
--- NOTE | 2025-03-20 16:30 | DVHPN2 ---
Progress Note Date Seen: Mar 20, 2025 Medical Necessity Reason Pt with a Central, PICC or Fol: No Objective vital signs Vital Sign Date Time Temp Pulse Resp B/P (MAP) Pulse Ox O2 Delivery O2 Flow Rate FiO2 03/20/25 16:20 71 18 153/53 (86) 96 60 03/20/25 16:00 Mechanical Ventilator+ 03/20/25 16:00 99.7 99.7 Total Intake and Output 03/19/25 03/19/25 03/20/25 15:00 23:00 07:00 Intake Total 212 ml 506.75 ml 437.25 ml Output Total 75 ml 300 ml Balance 212 ml 431.75 ml 137.25 ml medications Current Medications Medications Dose Ordered Sig/Genesis Route Start Time Stop Time Status Last Admin Dose Admin Norepinephrine Bitartrate 250 ml @ 3.75 mls/hr Q24H IV 03/17/25 09:30 03/19/25 07:30 3.75 MLS/HR Fentanyl Citrate 250 ml @ 2.5 mls/hr Q24H IV 03/17/25 13:15 03/19/25 07:35 15 MLS/HR Pantoprazole Sodium 40 mg DAILY IV 03/18/25 10:00 03/20/25 09:16 40 MG Enoxaparin Sodium 30 mg DAILY SC 03/18/25 10:00 03/20/25 09:16 30 MG Meropenem 50 ml @ 17 mls/hr Q12HR IV 03/17/25 22:00 UNV 03/20/25 09:17 17 MLS/HR Sodium Chloride 10 ml Q8HR IV 03/17/25 22:00 03/20/25 09:16 10 ML Dextrose 50 ml PRN PRN IV 03/17/25 16:30 Acetaminophen 325 mg Q4HP PRN ME 03/17/25 16:30 Propofol 100 ml @ 2.79 mls/hr Q24H IV 03/17/25 19:45 Linezolid 300 ml @ 150 mls/hr Q12H IV 03/18/25 16:00 03/20/25 15:49 150 MLS/HR Enteral Nutritional Formula 1,000 ml 30ML/HR GT 03/19/25 10:30 Diagnostic Test (Pha) 1 strip IQ4HR 03/20/25 12:00 03/20/25 15:56 1 STRIP Insulin Human Regular IQ4HR SC 03/20/25 12:00 03/20/25 15:57 2 UNITS Dextrose 50 ml UD PRN IV 03/20/25 10:15 Examination: GENERAL:Abnormal, HEENT:Abnormal, LUNGS:Abnormal, CVS:Abnormal, ABDOMEN:Abnormal laboratory and microbiology Laboratory Tests 03/20/25 03:10 Test 03/20/25 03:10 Range/Units Serum Glucose 132 H 74-106 mg/dL Microbiology Date/Time Source Procedure Growth Status 03/17/25 14:50 Nose MRSA Screen - Final Methicillin Resistant S.aureus Complete 03/17/25 08:33 Blood Blood Culture - Final Staphylococcus epidermidis Complete Problem List/Assessment/Plan Problem List/Assessment/Plan anxoic brain injury [facility] cad s;p cabg and pci obesity HTN ckd neuro eval pending, fu brain imaging severe lv dysfuncition supportiv care pressors as needed , minimal amount currently prn diuretics, fio2 is 40% prognosis is poor Cerebral edema associated with reported history of anoxic brain injury as detailed above. There is associated central descending transtentorial hernia and herniation of the cerebellar tonsils. There is effacement of the ventricles and basal cisterns. Additional findings as detailed above. Plan discussed with: Patient Dietary Evaluation Review Comments: 1) Initiate Nephro-Rehana @ 1 tb qd 2) If patient remains NPO > 7 days, consider EN/TPN to meet at least 75% of estimated daily needs 3) If GI is preferred, consider Nepro @ 30 mL/hr goal rate as tolerated. Flush with 200 mL free H2O Q6H. Goal rate will provide 1296 kcals, 58g Pro, and 1323 mL free H2O (including TF flushes) per 24 hrs. TF regimen will meet ~ 96% estimated energy needs and 79% estimated protein needs. 4) Advance to 60g CCHO renal cardiac diet when medically feasible, pending ST approval 5) Follow-up with cardiology, pulmonology, neurology, and nephrology 6) Continue to monitor I&O, labs, and skin integrity Expected Outcomes/Goals: 1) patient to receive nutrition support within 7 days of NPO status 2) labs and wounds to improve 3) diet to advance 4) f/u in 2-3 days Date of Service: Mar 20, 2025 Billing Provider: KAITY WYMAN MD Common Visit Codes: NOT BILLABLE KAITY WYMAN MD Mar 20, 2025 16:30
--- NOTE | 2025-03-20 18:57 | DVHPN2 ---
Progress Note Date Seen: Mar 20, 2025 Medical Necessity Reason Pt with a Central, PICC or Fol: No Subjective Patient reports: Other Review of Systems: Deferred Objective vital signs Vital Sign Date Time Temp Pulse Resp B/P (MAP) Pulse Ox O2 Delivery O2 Flow Rate FiO2 03/20/25 18:48 67 18 117/50 (72) 99 60 03/20/25 18:00 Mechanical Ventilator+ 03/20/25 16:00 99.7 99.7 Total Intake and Output 03/19/25 03/19/25 03/20/25 15:00 23:00 07:00 Intake Total 212 ml 506.75 ml 437.25 ml Output Total 75 ml 300 ml Balance 212 ml 431.75 ml 137.25 ml medications Current Medications Medications Dose Ordered Sig/Genesis Route Start Time Stop Time Status Last Admin Dose Admin Norepinephrine Bitartrate 250 ml @ 3.75 mls/hr Q24H IV 03/17/25 09:30 03/19/25 07:30 3.75 MLS/HR Fentanyl Citrate 250 ml @ 2.5 mls/hr Q24H IV 03/17/25 13:15 03/19/25 07:35 15 MLS/HR Pantoprazole Sodium 40 mg DAILY IV 03/18/25 10:00 03/20/25 09:16 40 MG Enoxaparin Sodium 30 mg DAILY SC 03/18/25 10:00 03/20/25 09:16 30 MG Meropenem 50 ml @ 17 mls/hr Q12HR IV 03/17/25 22:00 UNV 03/20/25 09:17 17 MLS/HR Sodium Chloride 10 ml Q8HR IV 03/17/25 22:00 03/20/25 09:16 10 ML Dextrose 50 ml PRN PRN IV 03/17/25 16:30 Acetaminophen 325 mg Q4HP PRN TN 03/17/25 16:30 Propofol 100 ml @ 2.79 mls/hr Q24H IV 03/17/25 19:45 Linezolid 300 ml @ 150 mls/hr Q12H IV 03/18/25 16:00 03/20/25 15:49 150 MLS/HR Enteral Nutritional Formula 1,000 ml 30ML/HR GT 03/19/25 10:30 Diagnostic Test (Pha) 1 strip IQ4HR 03/20/25 12:00 03/20/25 15:56 1 STRIP Insulin Human Regular IQ4HR SC 03/20/25 12:00 03/20/25 15:57 2 UNITS Dextrose 50 ml UD PRN IV 03/20/25 10:15 Examination: GENERAL:Abnormal, MSK:Abnormal, NEURO:Abnormal laboratory and microbiology Laboratory Tests 03/20/25 03:10 Test 03/20/25 03:10 Range/Units Serum Glucose 132 H 74-106 mg/dL Microbiology Date/Time Source Procedure Growth Status 03/17/25 14:50 Nose MRSA Screen - Final Methicillin Resistant S.aureus Complete 03/17/25 08:33 Blood Blood Culture - Final Staphylococcus epidermidis Complete Problem List/Assessment/Plan Problem List/Assessment/Plan Acute kidney injury hemodynamically mediated due to hypoperfusion, can not exclude acute tubular necrosis Chronic kidney disease stage 4 Acute respiratory failure Hypoxic encephalopathy Cardiac arrest Coronary artery disease Congestive heart failure Anemia Urinary tract infection Recommendations Given hypoxic encephalopathy patient not a candidate for renal replacement therapy Discussed with [id number] bedside in detail---they verbalized understanding Conservative management from renal perspective Plan discussed with: Other Dietary Evaluation Review Comments: 1) Initiate Nephro-Rehana @ 1 tb qd 2) If patient remains NPO > 7 days, consider EN/TPN to meet at least 75% of estimated daily needs 3) If GI is preferred, consider Nepro @ 30 mL/hr goal rate as tolerated. Flush with 200 mL free H2O Q6H. Goal rate will provide 1296 kcals, 58g Pro, and 1323 mL free H2O (including TF flushes) per 24 hrs. TF regimen will meet ~ 96% estimated energy needs and 79% estimated protein needs. 4) Advance to 60g CCHO renal cardiac diet when medically feasible, pending ST approval 5) Follow-up with cardiology, pulmonology, neurology, and nephrology 6) Continue to monitor I&O, labs, and skin integrity Expected Outcomes/Goals: 1) patient to receive nutrition support within 7 days of NPO status 2) labs and wounds to improve 3) diet to advance 4) f/u in 2-3 days CHARISSE CASANOVA MD Mar 20, 2025 18:57
[2025-03-20] MEDS: MIDAZOLAM DRIP 50 mg/50mL 50 ML IV ONE (20:10)
[2025-03-20] MEDS: MEROPENEM 1GM IVPB 50 ML IV ONE (22:16)
[2025-03-21] VITALS (41 sets, daily range): BP systolic 99–127; BP diastolic 41–59; PULSE 56–70; RESP 18–21; TEMP 96.1–100.4; O2SAT 92–98
[2025-03-21 04:22] LABS: Hematocrit 25.8 % (41.0-53.0); Hemoglobin 8.3 g/dL (13.5-17.5); Mean Corpuscular Hemoglobin 27.0 pg (28.0-32.0); Mean Corpuscular Volume 84.2 fL (80.0-100.0); Nucleated Red Blood Cells % 0.1 %
[2025-03-21 04:40] LABS: Alanine Aminotransferase 21 U/L (7-40); Anion Gap 12 (5-15); BUN/Creatinine Ratio 14.4 (10.0-20.0); Carbon Dioxide 26 mmol/L (20-31); Chloride 106 mmol/L (98-107); Magnesium 2.2 mg/dL (1.6-2.6); Potassium 3.9 mmol/L (3.5-5.1); Sodium 144 mmol/L (136-145)
[2025-03-21 04:47] LABS: Albumin 3.0 g/dL (3.2-4.8); Alkaline Phosphatase 193 U/L (46-116); Bilirubin, Total 1.8 mg/dL (0.2-1.0); Calcium 8.5 mg/dL (8.7-10.4); Glucose 149 mg/dL (74-106); Total Protein 4.8 g/dL (5.7-8.2)
[2025-03-21 04:50] LABS: Blood Urea Nitrogen 95 mg/dL (9-23)
--- NOTE | 2025-03-21 09:19 | DVHPN2 ---
Progress Note - Dictate Date Seen: Mar 21, 2025 Medical Necessity Reason Pt with a Central, PICC or Fol: No Subjective Mr. Feldman is a 64 years old right-handed gentleman with a history of hypertension, diabetes, dyslipidemia, coronary artery disease, heart attack, chronic kidney failure, diabetic polyneuropathy, he came to the hospital on 03/17/2025 with a chief complaint of CPR. I saw him on 01/12/2021 for seizure activity (syncope versus seizure) I have seen and examined the patient, I have talked to his nurse, the case was discussed with Dr. Guevara earlier this morning. His brother and [id number] are with him in the room, and we have discussed about his poorly prognosis for meaningful recovery, the family is considering terminal wean on him Home medications included: Aspirin 81 mg daily, Lipitor 10 mg daily, carbamazepine 600 mg t.i.d., topiramate 50 mg b.i.d. Urinalysis, 03/17/2025: WBC: 717, urine WBC clumps: Present, urine leukocyte esterase: 3+ CBC, 03/17/2025: Combined metabolic and respiratory acidosis WBC/HB/PLT/MCV, 03/20/2025: 10.4/8.6/96/84.3 PT/INR/ABG, 03/17/2025: 15.1/1.48/40.4 BUN/CR, 03/17/2025: 61/3.58, 03/20/2025: 90/5.55, 04/21/25: 95/6.59 Lactic acid, 03/17/2025: 10.5 TBI/AST/ALT/AP, 03/17/2025: 0.2/39/18/68 03/20/25: 1 0.7/58/30/154, 03/21/2025: 1.8/132/21/193 Echocardiogram, 10/12/2020: EF of 60% Carotid Doppler, 01/13/2021: 1. 50-69% diameter reduction stenosis at the left proximal internal carotid artery by spectral criteria. 2. Antegrade flow seen within the vertebral arteries bilaterally. 3. 1.3 cm complex cyst at the right thyroid lobe. Recommend dedicated thyroid ultrasound to the further evaluate CT head, 01/11/2021: 1. Cerebral involutional changes greater than expected for age. 2. Low attenuation infarct posterior lateral left occipital lobe, age indeterminate. There is asymmetric enlargement of the posterior horn of the left lateral ventricle adjacent the infarct, suggesting may be chronic. 3. Large midline retrocerebellar fluid collection, prominent cisterna magna versus arachnoid cyst CT head, 03/17/2025: No evidence of acute intracranial abnormality MRI head, 01/14/2021: No acute CVA or acute intracranial changes. Generalized mild to moderate atrophy, tiny foci chronic deep white matter microvascular changes and small old left occipital infarct MRI head, 03/19/2025: Cerebral edema associated with reported history of anoxic brain injury as detailed above. There is associated central descending transtentorial hernia and herniation of the cerebellar tonsils. There is effacement of the ventricles and basal cisterns. Additional findings as detailed above. MRA head, 01/14/21: 1. Major intracranial arteries are patent with no significant stenosis. 2. No cerebral aneurysms or vascular malformations vital signs Vital Sign Date Time Temp Pulse Resp B/P (MAP) Pulse Ox O2 Delivery O2 Flow Rate FiO2 03/21/25 08:05 64 19 118/54 (75) 96 60 03/21/25 08:00 Mechanical Ventilator+ 03/21/25 07:00 97.9 208.2 Total Intake and Output 03/20/25 03/20/25 03/21/25 15:00 23:00 07:00 Intake Total 84 ml 654 ml 300 ml Output Total 600 ml 200 ml Balance 84 ml 54 ml 100 ml medications Current Medications Medications Dose Ordered Sig/Genesis Route Start Time Stop Time Status Last Admin Dose Admin Norepinephrine Bitartrate 250 ml @ 3.75 mls/hr Q24H IV 03/17/25 09:30 03/19/25 07:30 3.75 MLS/HR Fentanyl Citrate 250 ml @ 2.5 mls/hr Q24H IV 03/17/25 13:15 03/19/25 07:35 15 MLS/HR Pantoprazole Sodium 40 mg DAILY IV 03/18/25 10:00 03/20/25 09:16 40 MG Enoxaparin Sodium 30 mg DAILY SC 03/18/25 10:00 03/20/25 09:16 30 MG Meropenem 50 ml @ 17 mls/hr Q12HR IV 03/17/25 22:00 UNV 8/11/25 09:17 17 MLS/HR Sodium Chloride 10 ml Q8HR IV 03/17/25 22:00 03/21/25 06:02 10 ML Dextrose 50 ml PRN PRN IV 03/17/25 16:30 Acetaminophen 325 mg Q4HP PRN IN 03/17/25 16:30 Propofol 100 ml @ 2.79 mls/hr Q24H IV 03/17/25 19:45 Linezolid 300 ml @ 150 mls/hr Q12H IV 03/18/25 16:00 03/21/25 04:06 150 MLS/HR Enteral Nutritional Formula 1,000 ml 30ML/HR GT 03/19/25 10:30 Diagnostic Test (Pha) 1 strip IQ4HR 03/20/25 12:00 03/21/25 08:00 1 STRIP Insulin Human Regular IQ4HR SC 03/20/25 12:00 03/21/25 08:00 3 UNITS Dextrose 50 ml UD PRN IV 03/20/25 10:15 objective The patient is well-nourished and well-developed with no distress. The patient is intubated MENTAL STATUS: Not responsive to the surroundings, CRANIAL NERVES: Pupils are equal, round and slightly reactive, right, 3-4 mm left: 3 mm.There are no corneal reflexes, this is a are weak doll's eyes phenomenon. No signs of facial weakness. There are no gagging or coughing reflexes SENSATION: No responses to pain stimuli. MOTOR: Normal tone in the upper and lower extremity. Normal muscle bulk. No fasciculations. No spontaneous movement. REFLEXES: Deep tendon reflexes are symmetrical. No pathological reflexes. CEREBELLAR/COORDINATION: Deferred GAIT/STATION: deferred. laboratory and microbiology Laboratory Tests 03/21/25 02:41 Test 03/21/25 02:41 Range/Units Serum Glucose 149 H 74-106 mg/dL Problem List Hypoxic encephalopathy Metabolic encephalopathy Cardiopulmonary arrest Status post CPR Kidney failure Shocked liver Current stroke History of subarachnoid hemorrhage/brain aneurysm Diabetic polyneuropathy Assessment/Plan Monitoring Supportive treatment EEG ICU care Stabilize vitals Respiratory support/vent management Oxygen IV antibiotics GI prophylaxis DVT prophylaxis More recommendation per clinical course He likely has a poor prognosis for meaningful recovery This medical document was created using an electronic medical record system with [employer] dictation system. Although this document has been carefully reviewed, there may still be some phonetic and typographical errors. These areas are purely typographical due to imperfections of the software programs, and do not reflect any compromise in the patient's medical care. Prognosis Guarded Dietary Evaluation Review Comments: 1) Initiate Nephro-Rehana @ 1 tb qd 2) If patient remains NPO > 7 days, consider EN/TPN to meet at least 75% of estimated daily needs 3) If GI is preferred, consider Nepro @ 30 mL/hr goal rate as tolerated. Flush with 200 mL free H2O Q6H. Goal rate will provide 1296 kcals, 58g Pro, and 1323 mL free H2O (including TF flushes) per 24 hrs. TF regimen will meet ~ 96% estimated energy needs and 79% estimated protein needs. 4) Advance to 60g CCHO renal cardiac diet when medically feasible, pending ST approval 5) Follow-up with cardiology, pulmonology, neurology, and nephrology 6) Continue to monitor I&O, labs, and skin integrity Expected Outcomes/Goals: 1) patient to receive nutrition support within 7 days of NPO status 2) labs and wounds to improve 3) diet to advance 4) f/u in 2-3 days Plan discussed with: Other Critical Care Time(min): 40 SANGEETA SNOWDEN MD Mar 21, 2025 09:19
--- NOTE | 2025-03-21 12:48 | DVHPN2 ---
Progress Note Date Seen: Mar 21, 2025 Medical Necessity Reason Pt with a Central, PICC or Fol: No Subjective Other Systems: per notes plan to withdraw care Objective vital signs Vital Sign Date Time Temp Pulse Resp B/P (MAP) Pulse Ox O2 Delivery O2 Flow Rate FiO2 03/21/25 12:00 100.4 70 18 114/51 (72) 93 212.7 03/21/25 12:00 60 03/21/25 12:00 Mechanical Ventilator+ Total Intake and Output 03/20/25 03/20/25 03/21/25 14:59 22:59 06:59 Intake Total 86 ml 658 ml 300 ml Output Total 600 ml 200 ml Balance 86 ml 58 ml 100 ml medications Current Medications Medications Dose Ordered Sig/Genesis Route Start Time Stop Time Status Last Admin Dose Admin Norepinephrine Bitartrate 250 ml @ 3.75 mls/hr Q24H IV 03/17/25 09:30 03/19/25 07:30 3.75 MLS/HR Fentanyl Citrate 250 ml @ 2.5 mls/hr Q24H IV 03/17/25 13:15 03/19/25 07:35 15 MLS/HR Pantoprazole Sodium 40 mg DAILY IV 03/18/25 10:00 03/20/25 09:16 40 MG Enoxaparin Sodium 30 mg DAILY SC 03/18/25 10:00 03/20/25 09:16 30 MG Sodium Chloride 10 ml Q8HR IV 03/17/25 22:00 03/21/25 06:02 10 ML Dextrose 50 ml PRN PRN IV 03/17/25 16:30 Acetaminophen 325 mg Q4HP PRN NM 03/17/25 16:30 Propofol 100 ml @ 2.79 mls/hr Q24H IV 03/17/25 19:45 Linezolid 300 ml @ 150 mls/hr Q12H IV 03/18/25 16:00 03/21/25 04:06 150 MLS/HR Enteral Nutritional Formula 1,000 ml 30ML/HR GT 03/19/25 10:30 Diagnostic Test (Pha) 1 strip IQ4HR 03/20/25 12:00 03/21/25 08:00 1 STRIP Insulin Human Regular IQ4HR SC 03/20/25 12:00 03/21/25 08:00 3 UNITS Dextrose 50 ml UD PRN IV 03/20/25 10:15 Meropenem 50 ml @ 16.6 mls/hr Q12HR IV 03/21/25 22:00 Examination: GENERAL:Abnormal, HEENT:Abnormal, LUNGS:Abnormal, CVS:Abnormal, ABDOMEN:Abnormal laboratory and microbiology Laboratory Tests 03/21/25 02:41 Test 03/21/25 02:41 Range/Units Serum Glucose 149 H 74-106 mg/dL Microbiology Date/Time Source Procedure Growth Status 03/17/25 14:50 Nose MRSA Screen - Final Methicillin Resistant S.aureus Complete 03/17/25 08:33 Blood Blood Culture - Final Staphylococcus epidermidis Complete Problem List/Assessment/Plan Problem List/Assessment/Plan anxoic brain injury [facility] cad s;p cabg and pci obesity HTN ckd neuro eval pending, fu brain imaging severe lv dysfuncition supportiv care pressors as needed , minimal amount currently prn diuretics, fio2 is 40% prognosis is poor Cerebral edema associated with reported history of anoxic brain injury as detailed above. There is associated central descending transtentorial hernia and herniation of the cerebellar tonsils. There is effacement of the ventricles and basal cisterns. Additional findings as detailed above. Plan discussed with: Other (rn) Dietary Evaluation Review Comments: 1) Initiate Nephro-Rehana @ 1 tb qd 2) If patient remains NPO > 7 days, consider EN/TPN to meet at least 75% of estimated daily needs 3) If GI is preferred, consider Nepro @ 30 mL/hr goal rate as tolerated. Flush with 200 mL free H2O Q6H. Goal rate will provide 1296 kcals, 58g Pro, and 1323 mL free H2O (including TF flushes) per 24 hrs. TF regimen will meet ~ 96% estimated energy needs and 79% estimated protein needs. 4) Advance to 60g CCHO renal cardiac diet when medically feasible, pending ST approval 5) Follow-up with cardiology, pulmonology, neurology, and nephrology 6) Continue to monitor I&O, labs, and skin integrity Expected Outcomes/Goals: 1) patient to receive nutrition support within 7 days of NPO status 2) labs and wounds to improve 3) diet to advance 4) f/u in 2-3 days Date of Service: Mar 21, 2025 Billing Provider: KAITY WYMAN MD Common Visit Codes: NOT BILLABLE KAITY WYMAN MD Mar 21, 2025 12:48
--- NOTE | 2025-03-21 14:29 | DVHDS2 ---
Discharge Summary Date of Admission Mar 17, 2025 at 14:07 Date of Discharge: Mar 21, 2025 Labs/Diagnostic Data: Laboratory Results Test 03/21/25 07:56 03/21/25 02:41 03/20/25 07:18 03/19/25 16:35 POC Glucose 179 mg/dl (70-106) White Blood Count 11.2 10^3/uL (4.4-10.8) Red Blood Count 3.06 10^6/uL (4.5-5.90) Hemoglobin 8.3 g/dL (13.5-17.5) Hematocrit 25.8 % (41.0-53.0) Mean Corpuscular Volume 84.2 fL (80.0-100.0) Mean Corpuscular Hemoglobin 27.0 pg (28.0-32.0) Mean Corpuscular Hemoglobin Concent 32.1 g/dL (32.0-36.0) Red Cell Distribution Width 18.7 % (11.8-14.3) Platelet Count 79 10^3/uL (140-450) Mean Platelet Volume 9.4 fL (6.9-10.8) Neutrophils (%) (Auto) 78.4 % (37.0-80.0) Lymphocytes (%) (Auto) 11.4 % (10.0-50.0) Monocytes (%) (Auto) 7.3 % (0.0-12.0) Eosinophils (%) (Auto) 2.6 % (0.0-7.0) Basophils (%) (Auto) 0.3 % (0.0-2.0) Neutrophils # (Auto) 8.8 10 ^3/uL (1.6-8.6) Lymphocytes # (Auto) 1.3 10 ^3/uL (0.4-5.4) Monocytes # (Auto) 0.8 10 ^3/uL (0-1.3) Eosinophils # (Auto) 0.3 10 ^3/uL (0-0.8) Basophils # (Auto) 0 10 ^3/uL (0-0.2) Nucleated Red Blood Cells 0.1 % Sodium Level 144 mmol/L (136-145) Potassium Level 3.9 mmol/L (3.5-5.1) Chloride Level 106 mmol/L (98-107) Carbon Dioxide Level 26 mmol/L (20-31) Anion Gap 12 (5-15) Blood Urea Nitrogen 95 mg/dL (9-23) Creatinine 6.59 mg/dL (0.700-1.30) Glomerular Filtration Rate Calc 9 mL/min (>90) BUN/Creatinine Ratio 14.4 (10.0-20.0) Serum Glucose 149 mg/dL (74-106) Calcium Level 8.5 mg/dL (8.7-10.4) Magnesium Level 2.2 mg/dL (1.6-2.6) Total Bilirubin 1.8 mg/dL (0.2-1.0) Aspartate Amino Transferase (AST) 132 U/L (13-40) Alanine Aminotransferase (ALT) 21 U/L (7-40) Alkaline Phosphatase 193 U/L (46-116) Total Protein 4.8 g/dL (5.7-8.2) Albumin 3.0 g/dL (3.2-4.8) Blood Gas Specimen Type Arterial Blood Gas Sample Site Right brachial Blood Gas Patient Temperature 37.0 Arterial Blood Date Drawn [id number] Arterial Blood pH 7.452 (7.350-7.450) Arterial Blood Partial Pressure CO2 35.1 mmHg (35.0-48.0) Arterial Blood Partial Pressure O2 70.4 mmHg (83.0-108.0) Arterial Blood HCO3 24.0 mmol/L (21.0-28.0) Arterial Blood Oxygen Saturation 93.3 % (94.0-98.0) Arterial Blood Base Excess 0.2 mmol/L (-2.0-3.0) Arterial Blood Oxyhemoglobin 91.2 % (94.0-98.0) Arterial Blood Carboxyhemoglobin 2.1 % (0.5-1.5) Arterial Blood Methemoglobin 0.1 % (0.0-1.5) Milo Test N/a Blood Gas Total Hemoglobin 8.70 g/dL (13.5-17.5) Blood Gas Set Respiration Rate 18.0 Blood Gas Modality Vent - ac FiO2 % 60.0 Blood Gas Tidal Volume 450.0 Blood Gas PEEP or CPAP 5.0 Urine Color Brown (Yellow) Urine Clarity Ex.turbid (Clear) Urine pH 5.5 (5.0-9.0) Urine Specific [place] 1.008 (1.001-1.035) Urine Protein 1+ (Negative) Urine Ketones Negative (Negative) Urine Blood 2+ /uL (Negative) Urine Nitrite Negative (Negative) Urine Bilirubin Negative (Negative) Urine Urobilinogen Normal mg/dL (Negative) Urine Leukocyte Esterase 3+ /uL (Negative) Urine Creatinine 35.03 mg/dL (30.0-125.0) Urine Sodium 32 mmol/L (40-220) Urine Glucose Normal mg/dL (Normal) Test 03/19/25 03:31 03/17/25 13:45 03/17/25 09:15 03/17/25 08:59 Phosphorus Level 4.2 mg/dL (2.4-5.1) Lactic Acid Level 4.4 mmol/L (0.4-2.0) Creatine Kinase 586 U/L (46-171) Urine RBC 154 /hpf (0 - 3) Urine WBC Clumps Present /hpf (None Seen) Urine Microscopic WBC 1317 /HPF (0-3) Urine Squamous Epithelial Cells None seen /hpf (<5) Urine Bacteria None seen /hpf (None Seen) Urine Yeast (Budding) Loaded /hpf (None Seen) Blood Gas Critical Value Read Back Yes Blood Gas Notified Whom Md. hernandez Blood Gas Notified Time [id number] Blood Gas Notified By Sales And Merchandising Representative martina wagoner Test 03/17/25 08:23 Prothrombin Time 15.1 sec (9.3-11.8) Prothrombin Time INR 1.48 (0.9-1.15) Activated Partial Thromboplast Time 40.4 SEC (24.5-34.5) Troponin I High Sensitivity 79 ng/L (</=54) B-Type Natriuretic Peptide 744.21 pg/mL (0-100) Other Laboratory Tests 03/21/25 02:41 Brief Hx & Hospital Course: Final diagnoses: Anoxic encephalopathy Cardiogenic shock Metabolic encephalopathy Acute hypoxic respiratory failure on mechanical ventilation MRSA in the nostril Coronary artery disease status post CABG Hypertension REJI Chronic kidney disease Possible aspiration pneumonia UTI Anemia most likely due to chronic kidney disease Bacteremia with staph epi Sepsis He was admitted after CPR was done x 40 minutes. He was treated aggressively on mechanical ventilation He never regained consciousness Sedation was discontinued He did not have reflexes MRI showed cerebral edema Neurology recommended poor prognosis We met the family, discussed options They said they did not want heroic measures Today he was made DND and terminal weaning done He at 14:18 today Condition at Discharge: Poor Final Diagnosis/Problems List Anoxic encephalopathy Cardiogenic shock Metabolic encephalopathy Acute hypoxic respiratory failure on mechanical ventilation MRSA in the nostril Coronary artery disease status post CABG Hypertension REJI Chronic kidney disease Possible aspiration pneumonia UTI Anemia most likely due to chronic kidney disease Bacteremia with staph epi Sepsis Discharge Disposition: at Hospital SNF Discharge Will this Physician continue t: No Discharge Instruct/Medications Scheduled Albuterol Sulfate (Ventolin Mdi), 90 MCG IN BID, (Reported) Aspirin (Aspirin 81), 81 MG OR DAILY, (Reported) Atorvastatin Calcium (Lipitor), 1 TAB PO DAILY Brimonidine Tartrate (Brimonidine Tartrate), 1 DROP OP TID, (Reported) Colchicine (Colchicine), 0.6 MG PO DAILY, (Reported) Dorzolamide-Timolol (Dorzolamide Hcl/Timolol M), 1 DROP EACHEYE BID, (Reported) Febuxostat (Uloric), 1 TAB PO DAILY, (Reported) Ferric Citrate (Auryxia), 210 MG PO TIDWMEALS, (Reported) Furosemide (Furosemide), 40 MG PO DAILY, (Reported) Gabapentin (Gabapentin), 600 MG PO TID, (Reported) Insulin Regular (Human) (Humulin R U-500 Kwikpen), 500 UNIT SC TID, (Reported) Isosorbide Mononitrate (Ismo Tablet), 30 MG PO DAILY, (Reported) Latanoprost (Latanoprost), 0.005 % OP DAILY, (Reported) Pantoprazole Sodium (Pantoprazole Sodium), 40 MG PO DAILY, (Reported) Ranolazine (Ranexa), 1,000 MG PO BID, (Reported) Topiramate (Topiramate), 50 MG PO BID, (Reported) Scheduled PRN Docusate Sodium (Colace), 1 CAP PO BID PRN Miscellaneous Medications Cholecalciferol (Vitamin D3), Unknown Dose OR, (Reported) Hydralazine Hcl (Hydralazine Hcl), 50 MG PO, (Reported) Discharge Statement: "Patient was advised to return to the ER or call 911 if any headaches, dizziness, shortness of breath, chest pain, abdominal pain, bleeding, fevers, or worsening of medical condition. Patient was counseled about treatment plan, medications, possible side effects, patientverbalized understanding. All questions were answered to the best of my ability. This discharge took greater then 30 minutes in planning, reviewing documentation, counseling the patient, and discussing with other team members." ASSESSMENT ASSESSMENT Assessment Date of Service: Mar 21, 2025 Billing Provider: DARREN SALAZAR MD Common Visit Codes: NOT BILLABLE DARREN SALAZAR MD Mar 21, 2025 14:29
--- NOTE | 2025-03-21 18:23 | DVHPN2 ---
Progress Note - Dictate Date Seen: Mar 21, 2025 Medical Necessity Reason Pt with a Central, PICC or Fol: No vital signs Vital Sign Date Time Temp Pulse Resp B/P (MAP) Pulse Ox O2 Delivery O2 Flow Rate FiO2 03/21/25 12:00 100.4 70 18 114/51 (72) 93 212.7 03/21/25 12:00 60 03/21/25 12:00 Mechanical Ventilator+ Total Intake and Output 03/20/25 03/20/25 03/21/25 15:00 23:00 07:00 Intake Total 84 ml 654 ml 300 ml Output Total 600 ml 200 ml Balance 84 ml 54 ml 100 ml laboratory and microbiology Laboratory Tests 03/21/25 02:41 Test 03/21/25 02:41 Range/Units Serum Glucose 149 H 74-106 mg/dL Assessment/Plan Impression Acute hypoxemic respiratory failure Prolonged CPR S/p cardiac arrest Lactic acidosis Patient seen and examined in ICU Events pt terminally weaned and extubated at 14:18 pm may he rest in peace Dietary Evaluation Review Comments: 1) Initiate Nephro-Rehana @ 1 tb qd 2) If patient remains NPO > 7 days, consider EN/TPN to meet at least 75% of estimated daily needs 3) If GI is preferred, consider Nepro @ 30 mL/hr goal rate as tolerated. Flush with 200 mL free H2O Q6H. Goal rate will provide 1296 kcals, 58g Pro, and 1323 mL free H2O (including TF flushes) per 24 hrs. TF regimen will meet ~ 96% estimated energy needs and 79% estimated protein needs. 4) Advance to 60g CCHO renal cardiac diet when medically feasible, pending ST approval 5) Follow-up with cardiology, pulmonology, neurology, and nephrology 6) Continue to monitor I&O, labs, and skin integrity Expected Outcomes/Goals: 1) patient to receive nutrition support within 7 days of NPO status 2) labs and wounds to improve 3) diet to advance 4) f/u in 2-3 days Plan discussed with: Other (rn) JADA HENSLEY MD Mar 21, 2025 18:23
[2025-03-21] MEDS ORDERED: MEROPENEM 500MG IVPB 50 ML IV SCH (22:00)
[2025-03-21] MEDS ORDERED: MEROPENEM 1GM IVPB 50 ML IV SCH (22:00)
--- NOTE | 2025-03-22 00:31 | DVHEEG2 ---
Neurology EEG Procedural Note Procedural Note EXAM DATE: 03/20/25 REFERRING DOCTOR: Dr. Snowden TECHNIQUE: Eighteen channels of EEG, 2 channels of EOG, and 1 channel of EKG were recorded using the [employer] 10/20 system. CLINICAL DATA: The patient was referred for an EEG evaluation for the evidence of seizure disorder. MEDICATIONS: See the chart BACKGROUND ACTIVITY: The record showed low-amplitude rhythmic six hertz waveform over both posterior quadrant, possibly reactive to external stimuli. There were very low amplitude waveforms over bilateral until quadrant and central/parietal head region ACTIVATION: Hyperventilation: Not done Photic Stimulation: Not done Sleep: Nonresponsiveness IMPRESSION: This is a remarkably abnormal EEG, this EEG seen in severe cerebral dysfunction due to metabolic/hypoxic encephalopathy or medication effect, please correlate clinically The EKG channel showed a regular heart rate of 72/min[place] [address] SANGEETA SNOWDEN MD Mar 22, 2025 00:31
== END 2025-03-21 14:18 | DRG 870 ==
LOC: EDBD 07:53 → ER 07:53 → OVERFLOW 14:07 → ICU WEST 14:54
PROVIDERS: ADMIT Internal Medicine Geriatric Medicine; ATTEND Internal Medicine Geriatric Medicine
PROC: 02HV33Z Insertion of Infusion Device into Superior Vena Cava, Percutaneous Approach (ICD-10-PCS; principal; 2025-03-17)
PROC: 5A1955Z Respiratory Ventilation, Greater than 96 Consecutive Hours (ICD-10-PCS; 2025-03-17)
PROC: 0BH17EZ Insertion of Endotracheal Airway into Trachea, Via Natural or Artificial Opening (ICD-10-PCS; 2025-03-17)
PROC: B548ZZA Ultrasonography of Superior Vena Cava, Guidance (ICD-10-PCS; 2025-03-17)
DX: A41.1 Sepsis due to other specified staphylococcus (principal); G93.41 Metabolic encephalopathy; J96.01 Acute respiratory failure with hypoxia; I21.A1 Myocardial infarction type 2; G93.6 Cerebral edema; J69.0 Pneumonitis due to inhalation of food and vomit; K72.00 Acute and subacute hepatic failure without coma; N18.4 Chronic kidney disease, stage 4 (severe); N39.0 Urinary tract infection, site not specified; I13.0 Hypertensive heart and chronic kidney disease with heart failure and stage 1 through stage 4 chronic kidney disease, or unspecified chronic kidney disease; N17.9 Acute kidney failure, unspecified; G93.1 Anoxic brain damage, not elsewhere classified; E87.20 Acidosis, unspecified; I46.9 Cardiac arrest, cause unspecified; R57.0 Cardiogenic shock; E11.22 Type 2 diabetes mellitus with diabetic chronic kidney disease; I50.9 Heart failure, unspecified; E66.9 Obesity, unspecified; I25.10 Atherosclerotic heart disease of native coronary artery without angina pectoris; Z68.35 Body mass index [BMI] 35.0-35.9, adult; D63.1 Anemia in chronic kidney disease; E11.42 Type 2 diabetes mellitus with diabetic polyneuropathy; E78.5 Hyperlipidemia, unspecified; F17.200 Nicotine dependence, unspecified, uncomplicated; Z22.322 Carrier or suspected carrier of Methicillin resistant Staphylococcus aureus; Z79.82 Long term (current) use of aspirin; Z79.899 Other long term (current) drug therapy; Z82.49 Family history of ischemic heart disease and other diseases of the circulatory system; Z83.3 Family history of diabetes mellitus; Z86.73 Personal history of transient ischemic attack (TIA), and cerebral infarction without residual deficits; Z95.1 Presence of aortocoronary bypass graft; Z98.61 Coronary angioplasty status
CPT/HCPCS: 31500; 36415; 36556; 36600; 70450; 70551; 71045; 80048; 80053; 81001; 81003; 82550; 82570; 82805; 82962; 83605; 83735; 83880; 84100; 84300; 84484; 85025; 85610; 85730; 87040; 87070; 87077; 87081; 87186; 87205; 93005; 93306; 93970; 94002; 94003; 95819; 96365; 96367; 99291; G0378; J0169; J1815; J2185; J2470; J3490; P9047